=== PATIENT | female | born 1960 | race African-American/Black ===

== ENCOUNTER 2019-05-27 11:00 | Outpatient (RCR) | payer OTHER, SELFPAY ==
--- NOTE | 2019-03-11 09:43 | PTOPEVAL ---
Thank you for referring this patient to [facility]. Please review, sign, date and return this plan of care ENEIDA. Pt seen for therapy evaluation today due to denise knee pain from OA. She requires additional skilled therapy to address impairments and achieve therapy goals. Cont PT 2x/wk x 6 wk to improve impairments noted. I agree with and certify that the following plan of care is medically necessary. Referring Physician Date Attending Provider: Armand Krishnan MD Referring Provider: *PT Outpatient Evaluation Start: 03/11/19 08:55 Freq: Status: Active Protocol: Document 03/11/19 08:55 CARL (Rec: 03/11/19 09:34 CAP [id number]) Therapy Assessment Status Assessment Status Assessment Status Evaluation Outpatient Past Medical History Neurological History Hx Neurological Disorders No Significant History Cardiovascular History Hx Hypertension Yes Respiratory History Hx Respiratory Disorders No Significant History Gastrointestinal History Hx Gastrointestinal Disorders No Significant History Genitourinary History Hx Genitourinary Disorders No Significant History Musculoskeletal History Hx Arthritis Yes: OA knee Endocrine History Hx Endocrine Disorders No Significant History Evaluation Information Problem Diagnosis OA denise knee Onset years Subjective Information Per pt she requires knee Query Text:As Reported By Patient/ replacement, however no Family surgery date is planned. She keeps putting off having surgery. She is now thinking of having the surgery at the end of 2019. She had therapy for her knees pain 1 year ago, but performing her HEP 1x/wk inconsistently. She reports limitations with walking, steps. She reports the pain with occasionally wake her at night. When performing shopping activities she will use the motorized cart. She walks a great deal for her job, but not cardio exercise. She does ride a bike during the summer and a stationary bike 2x/wk. But she stopped due to increased back pain. She wears denise soft knee braces at all times for pain and support. Previous Treatments Previous Treatmen
--- NOTE | 2019-04-10 10:35 | PTOPEVAL ---
Thank you for referring this patient to [facility]. Please review, sign, date and return this plan of care ENEIDA. Pt has received 8 therapy visits to address chronic OA of knees. She demonstrates a decline with denise hip and knee strength, decreased knee motion, decreased walking speed, decreased functional mobility on 5 rep sit<>stand. She performs her HEP 1x/wk. Skilled therapy interventions does not appear to be assisting pt with her pain, strength or function. Min progress towards therapy goals has been noted at the re-evaluation. Cont PT 1x/wk x 4 additional wks to progress and monitor HEP. I agree with and certify that the following plan of care is medically necessary. Referring Physician Date Attending Provider: Armand Krishnan MD Referring Provider: *PT Outpatient Re-Evaluation/Progress Note Start: 03/11/19 08:55 Freq: Status: Active Protocol: Document 04/10/19 08:44 CAP (Rec: 04/10/19 09:25 CAP [id number]) Therapy Assessment Status Assessment Status Assessment Status Re-evaluation Evaluation Information Problem Diagnosis OA denise knee Onset years Subjective Information She reports cont knee pain at Query Text:As Reported By Patient/ rest and with activties. She Family cont to report limitations with walking level surfaces and on steps. The will wake her at night 1-2x/wk. She changed mattresses which she feels has helped. She is using heat at home 1-2x/wk for pain relief. She leans on the grocery cart when grocery shopping. She is performing HEP 1x/wk at home, then in therapy 2x/wk. She reports the knee pain increases with the exercise. She feels like her right hamstring is not as tight, but otherwise no other noted functional changes reported. She has surgery planned for August 2019. Pt is going out of town next week on a cruise with plans to wear mainly flip flops. Pain Assessment Timing of Pain Assessment Timing of Pain Assessment Re-assessment Pain Scale Pain Scale Used Numeric (1 - 10) Self Report Pain Assessment Bilateral Knee(s) Reported Pain Level 4 Pain Description Aching,Sharp Pain Frequency Chronic,Continuous Current Pain Intensity 4 Lowest Pa
--- NOTE | 2019-04-24 09:57 | PCPTNOTE ---
Patient did not show up for scheduled appointment this date. Called patient, however, had to leave a message.
--- NOTE | 2019-04-29 08:28 | PCPTNOTE ---
Patient did not show up for scheduled appointment this date.
--- NOTE | 2019-05-27 14:55 | PTOPEVAL ---
Thank you for referring this patient to [facility]. Please review, sign, date and return this plan of care ENEIDA. Pt has been seen for 11 physical therapy visits to address chronic knee pain. She has achieved maximal potential with skilled therapy at this time. She is indep and performing a HEP. [facility] I agree with and certify that the following plan of care is medically necessary. Referring Physician Date Attending Provider: Armand Krishnan MD Referring Provider: *PT Outpatient Re-Evaluation/Discharge Start: 03/11/19 08:55 Freq: Status: Active Protocol: Document 05/27/19 10:58 CAP (Rec: 05/27/19 11:33 CAP [email or web address]) Outpatient Past Medical History Neurological History Hx Neurological Disorders No Significant History Cardiovascular History Hx Hypertension Yes Respiratory History Hx Respiratory Disorders No Significant History Gastrointestinal History Hx Gastrointestinal Disorders No Significant History Genitourinary History Hx Genitourinary Disorders No Significant History Musculoskeletal History Hx Arthritis Yes: OA knee Endocrine History Hx Endocrine Disorders No Significant History Evaluation Information Problem Diagnosis OA denise knee Onset years Additional Evaluation Detail She has surgery planned for August 2019. Subjective Information She wore her tennis shoes for Query Text:As Reported By Patient/ her cruise, but the increased Family walking caused increased knee pain. She is performing her HEP 1x/ day, but no changes in pain with the exercise with use of medication (tylenol and naprisin). The pain is no longer waking her at night. She is no longer using the heating pad on the knees for pain relief. Pain Assessment Timing of Pain Assessment Timing of Pain Assessment Re-assessment Pain Scale Pain Scale Used Numeric (1 - 10) Self Report Pain Assessment Bilateral Knee(s) Reported Pain Level 1 Pain Description Aching Pain Frequency Chronic Current Pain Intensity 1 Greatest Pain Intensity 4 Pain Aggravating Factors Stair Climbing,Walking,Weight Bearing/Standing Pain Behaviors None Pain Score Pain Score 1: Self Report Lower Extremity Range of Motion Knee Range of Motion Left Knee Flexion Range of Motion - Active 100 Knee Extension Range of Motion - Active -2 Query Text
== END 2019-05-28 10:43 | disposition home or self-care (01) ==
LOC: ANHPT 11:00
PROVIDERS: PCP Nurse Practitioner; Visit Provider Orthopaedic Surgery
DX: M17.0 Bilateral primary osteoarthritis of knee (principal)
CPT/HCPCS: 97110; 97162; 97530

== ENCOUNTER 2019-06-07 15:11 | Outpatient (CLI) | payer OTHER, SELFPAY ==
--- NOTE | ~2019-06-07 | XR_ITS ---
EXAMINATION: XR chest 2V DATE: 06/07/2019 15:24 INDICATION: Right chest pain. TECHNIQUE: Frontal and lateral views of the chest were obtained. COMPARISON: Chest 2 views 08/04/2016 FINDINGS: The chest demonstrates clear lungs without pneumonia, pleural effusion, or pneumothorax. Th e heart size is normal. IMPRESSION: 1. No acute cardiopulmonary disease. Reviewed, dictated and finalized at location A.
== END 2019-06-07 15:12 | disposition home or self-care (01) ==
LOC: ANHIMG 15:15
PROVIDERS: PCP Nurse Practitioner; Visit Provider Internal Medicine
DX: R07.81 Pleurodynia (principal)
CPT/HCPCS: 71046

== ENCOUNTER 2019-08-14 09:47 | Outpatient (CLI) | payer OTHER, SELFPAY ==
--- NOTE | 2019-08-14 10:50 | ECG_ITS ---
Measurements Intervals [place] Rate: 63 P: -28 ME: 150 QRS: 24 QRSD: 81 T: 24 QT: 402 QTc: 414 Interpretive Statements SINUS RHYTHM BASELINE ARTIFACT- I, II, III, AVR, AVL, AVF, V6 NORMAL ECG Electronically Signed On 08-14-2019 12:38:05 CDT by Berto Lake D.O.
[2019-08-14 11:30] LABS: Basophils Absolute Auto 0.1 K/mm3 (0.0-0.1); Basophils Percent Auto 0.6 % (0.2-1.2); Eosinophils Absolute Auto 0.4 K/mm3 (0-0.3); Eosinophils Percent Auto 3.9 % (0-4.4); Hematocrit 41.8 % (37.0-47.0); Hemoglobin 14.4 g/dL (12.0-15.0); Immature Granulocyte Absolute 0.03 K/mm3 (0.00-0.031); Immature Granulocyte Percent A 0.3 % (0-0.5); Lymphocytes Absolute Auto 3.37 K/mm3 (0.9-3.2); Lymphocytes Percent Auto 37.4 % (18.3-44.2); Mean Corpuscular HGB Conc 34.4 g/dl (32-36); Mean Corpuscular Hemoglobin 31.5 pg (26-34); Mean Corpuscular Volume 91.5 fl (80-100); Mean Platelet Volume 8.9 fl (7.4-10.4); Monocytes Absolute Auto 0.8 K/mm3 (0.1-0.6); Monocytes Percent Auto 8.5 % (2.6-8.5); Neutrophils Absolute Auto 4.5 K/mm3 (1.3-6.7); Neutrophils Percent Auto 49.3 % (45.5-73.1); Platelet Count Result 572 k/mm3 (150-375); Red Blood Count 4.57 M/mm3 (4.2-5.4); Red Cell Distribution Width 12.9 % (11.5-14.5)
[2019-08-14 11:42] LABS: Albumin Level 4.7 g/dL (3.5-5.1)
[2019-08-14 11:45] LABS: Blood Urea Nitrogen 12 mg/dL (7-17); Calcium 9.5 mg/dL (8.4-10.2); Carbon Dioxide 31 mmol/L (22-30); Chloride 103 mmol/L (98-107); Estimated Glomerular Filt Rate > 60; Glucose 91 mg/dL (65-105); Potassium 3.9 mmol/L (3.4-5.0); Sodium 140 mmol/L (137-145)
[2019-08-14 11:47] LABS: Hemoglobin A1C 5.1 % (<5.7)
[2019-08-14 12:34] LABS: Urine Cotinine NEGATIVE
== END 2019-08-14 09:48 | disposition home or self-care (01) ==
PROVIDERS: Anesthesiology; PCP Nurse Practitioner; Visit Provider Orthopaedic Surgery
DX: Z01.818 Encounter for other preprocedural examination (principal); I10 Essential (primary) hypertension; M17.0 Bilateral primary osteoarthritis of knee; Z79.899 Other long term (current) drug therapy
CPT/HCPCS: 36415; 80048; 80307; 82040; 83036; 85025; 87081; 93005

== ENCOUNTER 2019-08-31 00:15 | Outpatient (CLI) | payer OTHER, SELFPAY ==
[2019-08-31 16:19] LABS: SARS-CoV-2 RNA PCR Negative
== END 2019-08-31 00:16 | disposition home or self-care (01) ==
LOC: ANHCOVIDDT 00:15
PROVIDERS: PCP Nurse Practitioner; Visit Provider Orthopaedic Surgery
DX: Z01.818 Encounter for other preprocedural examination (principal); Z11.59 Encounter for screening for other viral diseases; M17.0 Bilateral primary osteoarthritis of knee
CPT/HCPCS: 87635; C9803; U0003

== ENCOUNTER 2019-09-03 11:37 | Inpatient (IN) | payer OTHER, SELFPAY ==
[2019-08-14 10:51] VITALS: BP 144/89; PULSE 67; RESP 16; TEMP 37.5; O2SAT 100; BMI 30.3
[2019-09-03] VITALS (12 sets, daily range): BP systolic 100–131; BP diastolic 51–87; PULSE 76–105; RESP 10–27; TEMP 36.1–36.7; O2SAT 93–100
--- NOTE | ~2019-09-03 | CT_ITS ---
EXAMINATION: CTA chest PE protocol EXAM DATE: 09/05/2019 13:56 INDICATION: Shortness of breath and tachycardia. Postoperative fever. TECHNIQUE: Spiral CTA of the chest (pulmonary arteries) was performed with 100 cc Omnipaque 350 intr avenous contrast injection. Images were acquired during the pulmonary arterial phase. Coronal maxi mum intensity projection 3D-reconstructions were created by the technologist on dedicated workstation . Axial, coronal and sagittal reformatted images were reviewed. The dose-length product (DLP) for t his examination was 399.52 mGy-cm. The exposure was tailored according to patient size (auto mA exp osure control), and iterative reconstruction (ASIR) was used as additional dose reduction technique. Correlation is made to chest x-ray from yesterday. Comparison is made to prior examination from 2006. FINDINGS: Suboptimal pulmonary arterial opacification, but no filling defects suspected. Single roun ded right lower lobe 6 mm groundglass density opacity, was present in 2006, benign chronic finding. N o suspicious nodules or acute airspace disease. No thoracic aortic dissection. The lungs are clear. There are no pleural or pericardial effusions. Tracheobronchial tree is patent. There is no me diastinal, hilar or axillary lymphadenopathy. There is no pneumothorax. Heart normal in size. N o evidence of coronary arterial calcification. Upper abdomen is unremarkable. There is thoracic sp ondylosis without osteoblastic or osteolytic lesions identified. IMPRESSION: 1. Unremarkable CT pulmonary examination. Reviewed, dictated and finalized at location B.
--- NOTE | ~2019-09-03 | US_ITS ---
EXAMINATION: US venous doppler LE EXAM DATE: 09/06/2019 14:01 INDICATION: Elevated d-dimer. Knee replacement. TECHNIQUE: Multiple grayscale, color flow and Doppler images of the lower extremity deep venous syste ms bilaterally were obtained and reviewed. There is no prior study for comparison. FINDINGS: Right side: The right common femoral, femoral and profunda veins demonstrate normal color flow, respi ratory variation, augmentation and compressibility. Compressibility, color flow confirmed within the right popliteal, posterior tibial, peroneal, and greater saphenous veins. Left side: The left common femoral, femoral and profunda veins demonstrate normal color flow, respira tory variation, augmentation and compressibility. Compressibility, color flow confirmed within the l eft popliteal, posterior tibial, peroneal, and greater saphenous veins. IMPRESSION: 1. No lower extremity deep venous thrombosis bilaterally. Reviewed, dictated and finalized at location B.
--- NOTE | ~2019-09-03 | XR_ITS ---
EXAMINATION: XR chest 1V portable EXAM DATE: 09/04/2019 23:44 INDICATION: Shortness of breath and fever. TECHNIQUE: Portable AP frontal chest x-ray was obtained. Comparison is made to prior examination from 06/07/2019. FINDINGS: The lungs are clear. There are no pleural effusions. The cardiomediastinal silhouette is within normal limits. There is no pneumothorax suspected. The bones and soft tissues are unremarkab le. There is no significant interval change. IMPRESSION: No acute cardiopulmonary findings. Reviewed, dictated and finalized at location G.
--- NOTE | ~2019-09-03 | XR_ITS ---
EXAMINATION: XR knee LT 2V DATE: 09/03/2019 10:25 INDICATION: Postoperative evaluation following left total knee arthroplasty. TECHNIQUE: Anteroposterior and lateral views of the left knee were obtained. COMPARISON: 03/15/2019 FINDINGS: Left total knee arthroplasty with patellar resurfacing appears well seated and in near anatomic align ment. No fractures identified. Expected postoperative subcutaneous and intra-articular gas. IMPRESSION: 1. Left total knee arthroplasty, negative for postoperative purposes. Reviewed, dictated and finalized at location A.
--- NOTE | 2019-09-03 06:48 | WPDANESPNB ---
Anes - Peripheral Nerve Block Date/Time: 09/03/19 06:48 I have discussed with the patient/family/POA the placement of a peripheral nerve block for post-operative pain management, including associated risks, benefits, complications, and side effects. Alternative methods of post-operative analgesia were detailed. Questions were solicited and answers provided to the satisfaction of the patient/family/POA. Time-Out: A pre-procedural Time-Out was completed immediately before starting the procedure and confirmed: Patient Identification, Site, Procedure, Patient Position and the Availability of Requisite Equipment. Clinical Indications: Acute post-operative pain management requested by the operative surgeon. Nerve Block Insertion Note Anes-nerve block: adductor canal left Patient position: supine Skin prep: chlorhexidine Needle: 22 gauge, stimulating, insulated echogenic needle. Needle length: 80 mm Technique: ultrasound Injectate: bupivacaine 0.5% with epi 5 mcg/ml (30cc) Observations: tolerated well Complications: none Procedure start time:: 717 Procedure end time:: 720
[2019-09-03] MEDS: LACTATED RINGERS 1,000 ML 30 ML IV CONT ×2 (06:55→10:10)
--- NOTE | 2019-09-03 07:08 | WPDHPUPDATE1 ---
History and Physical Update Update Date/Time: 09/03/19 07:08 History and Physical has been reviewed, including an updated exam of the patient. There are NO changes in the patient's condition. Risks, benefits, and alternatives have been discussed and questions answered. Patient agrees to proceed with procedure.
[2019-09-03] MEDS: TRANEXAMIC ACID 1,000MG/ISO100 1,000 MG/100 ML BAG 200 MG IVPB (07:10)
--- NOTE | 2019-09-03 07:21 | P.PNAN_ITS ---
Anes - Initial Pre Proc Eval Procedure: Operation Date: 09/03/19 07:30 Proposed Procedures p Left Total Knee Arthroplasty - Armand Krishnan MD Date/Time: 09/03/19 07:21 Surgeon: Armand Krishnan MD Pre Op Diagnosis: OA Left Knee Patient Data Age: 59 Gender: F Height: 1.7 m Weight: 86.6 kg Last Vital Signs Temp 36.4 C 09/03/19 06:53 Pulse 95 09/03/19 06:53 Resp 18 09/03/19 06:53 BP 131/87 09/03/19 06:53 Pulse Ox 96 09/03/19 06:53 Allergies Allergy/AdvReac Type Severity Reaction Status Date / Time No Known Allergies Allergy Verified 09/03/19 07:12 Home Medications Medication Instructions Recorded Confirmed Type potassium chloride 10 mEq 10 meq PO DAILY #90 tablet 07/23/19 09/03/19 Rx tablet,extended release olmesartan 40 1 tablet PO DAILY #90 tablet 07/24/19 09/03/19 Rx mg-hydrochlorothiazide 25 mg tablet acetaminophen [Tylenol Extra 1,000 mg PO DAILY 08/14/19 08/19/19 History Strength] ibuprofen 400 mg PO BID 08/14/19 08/19/19 History Patient hx anesthesia problems: none Family hx anesthesia problems: none [facility] Social History Social History Smoking status: Never smoker Second hand tobacco smoke exposure: No Alcohol intake: never Gender identity (if verbalized by the patient): Female Anes - Eval Final PreProcedure Day of Procedure 09/03/19 07:21 Patient weight: overweight Heart: regular rate and rhythm Lungs: clear to auscultation and normal air movement Airway: Mallampati scale class II and special considerations (veneers on upper r ow) Neurological: alert and oriented Last oral intake: >/= 8 hours ASA classification: II Emergent: no Anesthetic plan: proceed Anesthesia type and monitoring: general LMA and standard monitoring Informed Consent: The patient's anesthetic plan and its attendant risks and benefits were discussed with the patient/family/POA. Questions were solicited and answers provided to the satisfaction of the patient/family/POA.
[2019-09-03] MEDS: ceFAZolin 2 GM/D5W 50 ML 2 GM/50 ML BAG IVPB (07:26)
--- NOTE | 2019-09-03 07:26 | SUR.PREOP ---
0727 CALLED AND INFORMED OE PT DEPARTURE TO OR.
--- NOTE | 2019-09-03 11:45 | ADMGEN ---
This patient, Nelson Wolfetler, was admitted to 2 Medical Room 259-01. Patient/family oriented to hospital policies and general routines including ID bracelet, bed and alarms, visiting hours, pain management, procedures, bathroom and other care routines, personal items, smoking policy, room service/diet, and visiting hours. Valuables list has been completed. Information on how to activate the Rapid Response Team has been discussed. Patient/Family are encouraged to report perceived risks to care and to ask questions if they do not understand what they are told or what they should do.
[2019-09-03] MEDS: ONDANSETRON INJ 4 MG/2 ML VIAL IV PUSH ×3 (12:20→20:28)
[2019-09-03] MEDS: DIAZEPAM 5 MG TABLET PO (14:15)
[2019-09-03] MEDS: METOCLOPRAMIDE HCL INJ 10 MG/2 ML VIAL IV PUSH (17:07)
[2019-09-03] MEDS: MELOXICAM 7.5 MG TABLET PO (17:10)
[2019-09-03] MEDS: DOCUSATE SODIUM 100 MG CAPSULE PO (17:10)
[2019-09-03] MEDS: ASPIRIN 81 MG ENTERIC TABLET PO (17:10)
[2019-09-04] VITALS (9 sets, daily range): BP systolic 104–124; BP diastolic 50–65; PULSE 101–127; RESP 12–19; TEMP 36.3–39.4; O2SAT 94–99
[2019-09-04] MEDS: METOCLOPRAMIDE HCL INJ 10 MG/2 ML VIAL IV PUSH ×2 (00:12→15:46)
[2019-09-04] MEDS: DIAZEPAM 5 MG TABLET PO ×3 (00:18→20:41)
[2019-09-04] MEDS: ONDANSETRON INJ 4 MG/2 ML VIAL IV PUSH ×4 (04:24→20:36)
[2019-09-04 05:51] LABS: Basophils Percent Auto 0.2 % (0.2-1.2); Eosinophils Percent Auto 0.2 % (0-4.4); Hematocrit 32.9 % (37.0-47.0); Hemoglobin 11.1 g/dL (12.0-15.0); Immature Granulocyte Absolute 0.07 K/mm3 (0.00-0.031); Immature Granulocyte Percent A 0.4 % (0-0.5); Lymphocytes Absolute Auto 4.15 K/mm3 (0.9-3.2); Lymphocytes Percent Auto 24.7 % (18.3-44.2); Mean Corpuscular HGB Conc 33.7 g/dl (32-36); Mean Corpuscular Hemoglobin 31.4 pg (26-34); Mean Corpuscular Volume 92.9 fl (80-100); Mean Platelet Volume 8.7 fl (7.4-10.4); Monocytes Absolute Auto 2.4 K/mm3 (0.1-0.6); Monocytes Percent Auto 14.2 % (2.6-8.5); Neutrophils Absolute Auto 10.1 K/mm3 (1.3-6.7); Neutrophils Percent Auto 60.3 % (45.5-73.1); Platelet Count Result 437 k/mm3 (150-375); Red Blood Count 3.54 M/mm3 (4.2-5.4); Red Cell Distribution Width 12.6 % (11.5-14.5); White Blood Count 16.8 K/mm3 (4.5-10.0)
[2019-09-04 06:06] LABS: Blood Urea Nitrogen 18 mg/dL (7-17); Calcium 8.3 mg/dL (8.4-10.2); Carbon Dioxide 30 mmol/L (22-30); Chloride 104 mmol/L (98-107); Estimated CRCL calculation 68 ml/min; Estimated Glomerular Filt Rate > 60; Glucose 113 mg/dL (65-105); Potassium 3.3 mmol/L (3.4-5.0); Sodium 138 mmol/L (137-145)
[2019-09-04] MEDS: OLMESARTAN MEDOXOMIL 20 MG TABLET 40 MG PO (07:47)
[2019-09-04] MEDS: DOCUSATE SODIUM 100 MG CAPSULE PO ×2 (07:48→18:02)
[2019-09-04] MEDS: ASPIRIN 81 MG ENTERIC TABLET PO ×2 (07:48→18:02)
[2019-09-04] MEDS: MELOXICAM 7.5 MG TABLET PO ×2 (07:48→18:02)
[2019-09-04] MEDS: hydroCHLOROthiazide 25 MG TABLET PO (07:48)
[2019-09-04] MEDS: POTASSIUM CHLORIDE 10 MEQ TABLET.ER PO (07:49)
--- NOTE | 2019-09-04 08:17 | WPDANESPN ---
Anes - Prog Note Post-Op Date/Time: 09/04/19 08:17 Cardiovascular status: normal Respiratory status: normal Airway patency: baseline Mental status: baseline Post-Op hydration status: normal Vital Signs: Last Vital Signs Temp 36.9 C 09/04/19 05:22 Pulse 103 H 09/04/19 05:22 Resp 16 09/04/19 05:22 BP 106/51 L 09/04/19 05:22 Pulse Ox 96 09/04/19 05:22 I/O: Intake & Output 09/03/19 09/04/19 09/04/19 23:59 07:59 15:59 Intake Total 570 750 Output Total 800 Balance 570 -50 Laboratory Tests 09/04/19 05:43 09/04/19 05:42 09/03/19 09/04/19 09/04/19 06:44 05:42 05:43 WBC 16.8 H RBC 3.54 L Hgb 11.1 L D Hct 32.9 L MCV 92.9 MCH 31.4 MCHC 33.7 RDW 12.6 Plt Count 437 H MPV 8.7 Immature Gran % (Auto) 0.4 Neut % (Auto) 60.3 Lymph % (Auto) 24.7 Carver % (Auto) 14.2 H Eos % (Auto) 0.2 Baso % (Auto) 0.2 Lymph # (Auto) 4.15 H Carver # (Auto) 2.4 H Eos # (Auto) 0.0 Baso # (Auto) 0.0 Abs Immat Gran (auto) 0.07 H Absolute Neuts (auto) 10.1 H Absolute Nucleated RBC 0.0 Nucleated RBC % 0.0 Sodium 138 Potassium 3.3 L Chloride 104 Carbon Dioxide 30 BUN 18 H Creatinine 0.90 Estim Creat Clear Calc 68 Estimated GFR > 60 Glucose 113 H Calcium 8.3 L Blood Type O Positive Antibody Screen Negative Post-procedural complaints: none Patient Feedback: Patient satisfied with anesthetic care.
--- NOTE | 2019-09-04 11:18 | PM.PROC ---
Procedure Note - Detailed Date of procedure: 09/04/19 Pre-op diagnosis: OA Left Knee Post-op diagnosis: same Procedure performed: Total knee arthroplasty, left Implants: Media Triathlon size 4 press-fit femur, size 4 Tritanium press fit tibia, 16mm PS X3, polyethylene insert, 35 mm asymmetric Tritanium metal backed patellar component. Anesthesia: GETA and regional (subsartorial nerve block) Surgeon: Armand Krishnan MD Estimated blood loss (mL): 300 Drains: No Complications: None Condition: stable Disposition: PACU Findings: OPERATIVE DETAILS: The patient was given a nerve block preoperatively, and then brought to the operating room. A general anesthetic was administered. The leg was prepped and draped in the usual sterile fashion. The limb was elevated and the tourniquet inflated to 300 mmHg during initial exposure. A longitudinal incision was created along the medial border of the patella and patellar tendon, and standard medial parapatellar approach to the knee was performed. A moderate medial release was taken. The knee was then flexed. The osteophytes were carefully removed. The intramedullary guide was placed in the femoral canal. The distal femoral resection was then taken with the oscillating saw at 8 mm. The collateral ligaments were carefully protected. The tibia was carefully exposed. The jig was applied, and the proximal tibia was resected at 3 degrees according to preoperative plan. The knee was balanced in extension. Appropriate releases were taken where needed. The anterior cruciate ligament and meniscal remnants were removed. The posterior cruciate ligament was resected. The patella was measured. Patellar resection was carried out with the oscillating saw. The lug holes drilled. The femur was sized and rotation assessed using a combination of gap balancing, posterior referencing, and the AP axis. !.5 mm downsizing was needed to balance the flexion gap. She was very loose in extension preoperatively, and after extension balancing, despite a conservative distal femoral resection. Rotation was at 3 degrees, and matched the AP axis. The 4 in 1 cutting block was used to finish the femoral cuts after equal gaps were assured. The lug holes were drilled, and box cut taken. Trialing was performed. Tracking was good. The flexion gap was tight medial, both in flexion and extension. A slight needle release created exellent balance and full range of motion. The osteophytes were carefully removed from the back of the knee. The knee was copiously irrigated periodically throughout the procedure. The meniscal remnants were removed. The spacer block was used to confirm equal flexion and extension gaps. No further releases were needed. The tibia was sized and broached. The bony surfaces were prepared for cementing with pulsatile lavage. The real tibial component was impacted into position followed by press fitting the femoral component. The patella component was press-fit. Patellar tracking was carefully assessed. No additional releases were required. The wound was closed with #1 Vycril suture, #2 Quill suture, 0-Quill suture, and 2-0 Quill suture followed by Steri-Strips. A sterile bulky dressing was applied. Meticulous hemostasis was maintained throughout the procedure. The [employer] device was utilized. There were no complications. The patient was extubated and brought to the recovery room in stable condition after the application of a sterile dressing with Jamil bandage.
[2019-09-04] MEDS: ACETAMINOPHEN 500 MG TABLET 1000 MG PO (22:07)
--- NOTE | 2019-09-04 23:33 | PM.IMCN ---
Assessment and Plan Assessment and plan (1) S/P total knee arthroplasty: Qualifiers: Laterality: left Qualified Code(s): Z96.652 - Presence of left artificial knee joint Code(s): Z96.659 - Presence of unspecified artificial knee joint Status: Acute Assessment and Plan: Continue Ortho recommendations. Pain control per Ortho. (2) Fever: Qualifiers: Fever type: post-procedural Qualified Code(s): R50.82 - Postprocedural fever Code(s): R50.9 - Fever, unspecified Status: Acute Assessment and Plan: Likely secondary to surgery the patient just had today. Fever may also be secondary to atelectasis given that the patient has mild bilateral crackles. I emphasized that the patient should continue to use her ISB. We will check a CXR and urinalysis w/ reflex culture. Check blood cultures. Continue acetaminophen for fever. NS IV Fluids. I do not suspect that the patient has an acute PE given that she has no chest pain is saturating >97% on room air and in no acute respiratory distress. We will consider ruling out pulmonary embolism if the patient develops any worsening symptoms. (3) Hypertension: Qualifiers: Hypertension type: unspecified Qualified Code(s): I10 - Essential (primary) hypertension Code(s): I10 - Essential (primary) hypertension Status: Chronic Assessment and Plan: Continue home Benicar PO. Additional Plan Date of service was 09/04/2019 at 22:30 hrs. HPI Data of Consult Consult date: 09/05/19 Requesting Physician: Armand Krishnan MD Primary Care Provider: Bobo Dempsey APRN Consult Narrative Narrative: Thank you for consulting us to see this 59 year old female with known history of HTN who just underwent a TLKA yesterday and who developed fever this evening. The patient states that her left knee hurts but her pain medicine is helping. She is complaining of mild shortness of breath. She is using her ISB. She denies any chest pain, sore throat, headache, abdominal pain, dysuria, hematuria, nausea, vomiting, diarrhea or focal neurological symptoms. The patient has already received acetaminophen for her fever. No other complaints. Review of Systems Review of Systems: All systems reviewed & are unremarkable except as noted in HPI and below PMFSH Past Medical History Medical History Bilateral primary osteoarthritis of knee Hypertension Thyroid mass of unclear etiology Surgical History Surgical History History of endometrial ablation Family History Family History Mother Hypertension Family history of diabetes mellitus in first degree relative Father Hypertension Other Carcinoma of colon Diabetes mellitus Social History Social History Smoking status: Never smoker Second hand tobacco smoke exposure: No Alcohol intake: never Substance use: never Gender identity (if verbalized by the patient): Female Spiritual care concerns: No Meds Home Medications and Allergies Home Medications Medication Instructions Recorded Confirmed Type potassium chloride 10 mEq 10 meq PO DAILY #90 tablet 07/23/19 09/03/19 Rx tablet,extended release olmesartan 40 1 tablet PO DAILY #90 tablet 07/24/19 09/03/19 Rx mg-hydrochlorothiazide 25 mg tablet acetaminophen [Tylenol Extra 1,000 mg PO DAILY 08/14/19 09/03/19 History Strength] ibuprofen 400 mg PO BID 08/14/19 09/03/19 History Allergies Allergy/AdvReac Type Severity Reaction Status Date / Time No Known Allergies Allergy Verified 09/03/19 07:12 Vital Signs Vital Signs - 24 hr 09/04/19 01:22 09/04/19 05:22 09/04/19 08:00 Temperature 37.2 C 36.9 C Pulse Rate 102 H 103 H 103 H Respiratory Rate 16 16
[2019-09-05] MEDS: SODIUM CHLORIDE 0.9% IV 1,000 ML 125 ML IV CONT ×3 (00:02→16:05)
[2019-09-05 00:10] VITALS: TEMP 36.9
[2019-09-05 00:29] LABS: Add Urine Microscopic? YES; Appearance Urine Clear (Clear); Bacteria Urine Trace /hpf; Bilirubin Urine Negative (Negative); Blood Urine Negative (Negative); Color Urine Yellow (Yellow); Glucose Urine UA Negative (Negative); Ketones Urine Negative (Negative); Leukocyte Esterase Ur Negative LEU/UL (NEGATIVE); Mucus Urine Rare /lpf; Nitrate Urine Negative (Negative); Protein Urine Negative (Negative); RBC Urine 0-2 /hpf (0-2); Squamous Epithelial Cell Urine Moderate /hpf (Few); WBC Urine 0-3 /hpf (0-3)
[2019-09-05] MEDS: METOCLOPRAMIDE HCL INJ 10 MG/2 ML VIAL IV PUSH ×2 (00:37→14:39)
[2019-09-05] MEDS: ACETAMINOPHEN 500 MG TABLET 1000 MG PO ×3 (05:51→16:56)
[2019-09-05 06:00] VITALS: BP 132/64; PULSE 120; RESP 12; TEMP 37.2; O2SAT 100
[2019-09-05] MEDS: ONDANSETRON INJ 4 MG/2 ML VIAL IV PUSH ×3 (06:21→20:59)
[2019-09-05] MEDS: MELOXICAM 7.5 MG TABLET PO ×2 (07:54→16:56)
[2019-09-05] MEDS: OLMESARTAN MEDOXOMIL 20 MG TABLET 40 MG PO (07:54)
[2019-09-05] MEDS: hydroCHLOROthiazide 25 MG TABLET PO (07:54)
[2019-09-05] MEDS: ASPIRIN 81 MG ENTERIC TABLET PO ×2 (07:54→16:56)
[2019-09-05] MEDS: POTASSIUM CHLORIDE 10 MEQ TABLET.ER PO (07:54)
[2019-09-05] MEDS: DOCUSATE SODIUM 100 MG CAPSULE PO ×2 (07:54→16:55)
[2019-09-05] MEDS: DIAZEPAM 5 MG TABLET PO (07:58)
[2019-09-05 08:00] VITALS: PULSE 120; RESP 12; O2SAT 100
[2019-09-05 08:24] LABS: Basophils Absolute Auto 0.1 K/mm3 (0.0-0.1); Basophils Percent Auto 0.4 % (0.2-1.2); Eosinophils Absolute Auto 0.3 K/mm3 (0-0.3); Eosinophils Percent Auto 2.1 % (0-4.4); Hematocrit 35.1 % (37.0-47.0); Hemoglobin 11.8 g/dL (12.0-15.0); Immature Granulocyte Absolute 0.08 K/mm3 (0.00-0.031); Immature Granulocyte Percent A 0.5 % (0-0.5); Lymphocytes Absolute Auto 3.34 K/mm3 (0.9-3.2); Mean Corpuscular HGB Conc 33.6 g/dl (32-36); Mean Corpuscular Hemoglobin 31.6 pg (26-34); Mean Corpuscular Volume 94.1 fl (80-100); Mean Platelet Volume 9.4 fl (7.4-10.4); Monocytes Absolute Auto 2.1 K/mm3 (0.1-0.6); Platelet Count Result 456 k/mm3 (150-375); Red Blood Count 3.73 M/mm3 (4.2-5.4); Red Cell Distribution Width 12.7 % (11.5-14.5); White Blood Count 15.9 K/mm3 (4.5-10.0)
[2019-09-05 08:37] LABS: Alanine Aminotransferase 18 U/L (4-35); Albumin Level 3.9 g/dL (3.5-5.1); Alkaline Phosphatase 63 U/L (38-126); Aspartate Amino Transferase 37 U/L (14-36); Bilirubin,Total 1.9 mg/dL (0.2-1.3); Blood Urea Nitrogen 15 mg/dL (7-17); Calcium 8.4 mg/dL (8.4-10.2); Carbon Dioxide 29 mmol/L (22-30); Chloride 101 mmol/L (98-107); Estimated CRCL calculation 62 ml/min; Estimated Glomerular Filt Rate > 60; Glucose 112 mg/dL (65-105); Potassium 3.4 mmol/L (3.4-5.0); Sodium 137 mmol/L (137-145)
--- NOTE | 2019-09-05 10:03 | PM.IMPN ---
Progress Note: A&P Assessment and Plan (1) S/P total knee arthroplasty: Qualifiers: Laterality: left Qualified Code(s): Z96.652 - Presence of left artificial knee joint Code(s): Z96.659 - Presence of unspecified artificial knee joint Status: Acute Assessment and Plan: Patient underwent left total knee arthroplasty on 09/04/[address] Krishnan. Her pain is well controlled at this time. Postoperative management and pain control per Dr. Krishnan. (2) Fever: Qualifiers: Fever type: post-procedural Qualified Code(s): R50.82 - Postprocedural fever Code(s): R50.9 - Fever, unspecified Status: Acute Assessment and Plan: Patient developed fever postoperatively with T-max 103.0. CXR demonstrated no acute findings and urinalysis was clear. She has been afebrile today. She does have leukocytosis which is improving. Continue IV fluids and acetaminophen as needed for fever May be secondary to atelectasis. Continue incentive spirometer. Preliminary blood cultures show no growth today. Continue to monitor. Order Chest CTA. PE is a less likely etiology for her fever, however she cannot be ruled out by PERC criteria and has a PE Wells score of 6. D-dimer is elevated. She is maintaining adequate oxygenation and is not in acute respiratory distress, however she does endorse shortness of breath, she is postoperative, and has tachycardia. (3) Hypertension: Qualifiers: Hypertension type: unspecified Qualified Code(s): I10 - Essential (primary) hypertension Code(s): I10 - Essential (primary) hypertension Status: Chronic Assessment and Plan: Blood pressures were evaluated and acceptable in low-normal range. Blood pressure this morning was stable at 132/64. Continue olmesartan and HCTZ Continue to monitor blood pressures closely (4) Tachycardia: Code(s): R00.0 - Tachycardia, unspecified Status: Acute Assessment and Plan: Ranging from 101-127 following procedure. This may be secondary to fever or pain. Check EKG Check TSH Continue IV fluids PE is less likely as noted above, however will proceed with chest CTA given clinical picture and elevated D-dimer. Subjective Date/time seen: 09/05/19 10:03 Interval history: Date of service: 09/05/2019 She reports she is doing well today. Her pain has remained stable postoperatively. This morning she states that her pain was 6/10. She has just returned from working with physical therapy and states her pain is about 7/10. She did well walking and with stairs. She complains of left anterior patella pain and pain in her left thigh. She reports she is feeling much better than yesterday and her fevers have improved. She has mild dizziness and weakness but believes this also has improved from yesterday. She reports some mild shortness of breath today but denies cough, orthopnea, palpitations, or chest pain. She denies headache, fever, or chills. She did admit to some nausea but denied vomiting. She has no abdominal pain or cramping. She has not had a bowel movement since surgery. She is eating well. She denies any urinary symptoms. Review of Systems Review of Systems: Narrative: A 12 point review of systems was reviewed with pertinent positives and negatives as per HPI. Exam Narrative: Exam Narrative: Ms. Monsalve is examined alone today. She is a well-nourished, well-appearing 59-year-old female who is lying supine in bed. She appears comfortable and is in no acute respiratory distress. HR 120, BP 132/64, RR 12, T 98.9?, 100% on room air Neuro: awake, alert and oriented x4, speech clear, no focal neuro deficits noted HEENMT: normocephalic, atraumatic, EOMI, PERRL, sclerae anicteric, moist oral mucosa, tongue midline Neck: supple, no lymphadenopathy Respiratory: clear to auscultation bilaterally, normal respiratory effort without accessory mus
--- NOTE | 2019-09-05 10:10 | ECG_ITS ---
Measurements Intervals [place] Rate: 102 P: 49 ND: 188 QRS: 56 QRSD: 75 T: 21 QT: 331 QTc: 431 Interpretive Statements SINUS TACHYCARDIA ABNORMAL ECG Electronically Signed On 09-05-2019 11:06:37 CDT by [place] D.O.
[2019-09-05 11:11] LABS: D Dimer 1.86 ug/mL (<0.48)
[2019-09-05 11:42] LABS: Thyroid Stimulating Hormone 0.213 uIU/mL (0.465-4.680)
[2019-09-05 12:00] VITALS: TEMP 37.3
[2019-09-05 14:00] VITALS: BP 115/49; PULSE 113; RESP 16; TEMP 36.9; O2SAT 96
--- NOTE | 2019-09-05 16:36 | PM.PNORT ---
Progress Note: A&P Assessment and Plan (1) S/P total knee arthroplasty: Qualifiers: Laterality: left Qualified Code(s): Z96.652 - Presence of left artificial knee joint Code(s): Z96.659 - Presence of unspecified artificial knee joint Status: Acute Assessment and Plan: Spiked a fever and demonstrated tachycardia. No signs of infection at the knee. Moderate pain. Will observe today and await results of the workup. Hospitalist assistance appreciated. Subjective Subjective Date/Time Seen: 09/05/19 16:36 Interval history: moderate pain of 6. Tolerating pain medication better. Nausea under control. Spiked a fever last night. Workup in progress. Appreciate hospitalist assistance. Exam Narrative: Exam Narrative: Alert oriented x3. Appears uncomfortable. Progressing with physical therapy. Using the walker. Wound is healing. Significant swelling without evidence of hemarthrosis. No warmth or drainage. Calf nontender. Wiggles toes. Light touch sensation intact. Objective Data Vital Signs Vital Signs: Vital Signs - 24 hr 09/04/19 22:00 09/04/19 22:07 09/04/19 23:00 Temperature 39.4 C H 39.4 C H 37.9 C H Pulse Rate 127 H Respiratory Rate 12 Blood Pressure 124/59 L Pulse Oximetry 98 09/04/19 23:39 09/05/19 00:10 09/05/19 06:00 Temperature 37.9 C H 36.9 C 37.2 C Pulse Rate 120 H Respiratory Rate 12 Blood Pressure 132/64 Pulse Oximetry 100 09/05/19 08:00 09/05/19 12:00 09/05/19 14:00 Temperature 37.3 C 36.9 C Pulse Rate 120 H 113 H Respiratory Rate 12 16 Blood Pressure 115/49 L Pulse Oximetry 100 96 Intake/Output Intake/Output: Intake & Output 09/02/19 09/03/19 09/04/19 09/05/19 23:59 23:59 23:59 23:59 Intake Total 1020 2270 2680 Output Total 1550 1100 Balance 0946 158 6894 Meds/Results Medications: Active Medications Generic Name Dose Route Start Last Admin Trade Name Freq PRN Reason Stop Dose Admin Acetaminophen 1,000 mg 09/05/19 06:00 09/05/19 12:10 Tylenol Tablet PO 1,000 mg Q6HR LISA Administration Aspirin 81 mg 09/03/19 17:00 09/05/19 07:54 Aspirin Ec PO 81 mg BID LISA Administration Diazepam 5 mg 09/03/19 11:37 09/05/19 07:58 Valium Po PO 5 mg Q8H PRN Administration Spasms Docusate Sodium 100 mg 09/03/19 17:00 09/05/19 07:54 Colace Capsule PO 100 mg BID LISA Administration Hydrochlorothiazide 25 mg 09/04/19 09:00 09/05/19 07:54 Hydrochlorothiazide PO 25 mg QAM LISA Administration Sodium Chloride 1,000 mls @ 125 mls/hr 09/04/19 23:35 09/05/19 16:05 Normal Saline Iv IV CONT 125 mls/hr .Q8H LISA Administration Meloxicam 7.5 mg 09/03/19 17:00 09/05/19 07:54 Mobic PO 7.5 mg BID LISA Administration Meperidine HCl 100 mg 09/03/19 11:53 Demerol IM Q3H PRN Pain10, breakthough only Metoclopramide HCl 10 mg 09/03/19 16:45 09/05/19 14:39 Reglan IV PUSH 10 mg Q6HR PRN Administration Nausea Naloxone HCl 0.1 mg 09/03/19 11:37 Narcan IV PUSH Q2M PRN Opiate Reversal Olmesartan 40 mg 09/04/19 09:00 09/05/19 07:54 Benicar PO 40 mg QAM LISA Administration Ondansetron HCl 4 mg 09/03/19 11:37 09/05/19 10:41 Zofran Inj IV PUSH 4 mg Q4H PRN Administration Nausea And Vomiting Oxycodone HCl 5 mg 09/03/19 11:37 09/03/19 15:56 Roxicodone Ir Tablet PO 5 mg Q4H PRN Administration Pain Rated 4-6 Oxycodone HCl 10 mg 09/03/19 11:37 09/05/19 14:38 Roxicodone Ir Tablet PO 10 mg Q4H PRN Administration Pain Rated 7-10 Potassium Chloride 10 meq 09/04/19 09:00 09/05/19 07:54 Kcl Tablet PO 10 meq DAILY LISA Administration Radiology Results: ITS Impressions Knee X-Ray 09/03/19 10:26 IMPRESSION: 1. Left total knee arthroplasty, negative for postoperative purposes. Chest X-Ray 09/04/19 23:52 IMPRESSION: No acute cardiopulmonary
[2019-09-05 22:00] VITALS: BP 113/56; PULSE 109; RESP 18; TEMP 36.7; O2SAT 97
[2019-09-06] MEDS: METOCLOPRAMIDE HCL INJ 10 MG/2 ML VIAL IV PUSH ×2 (00:57→08:45)
[2019-09-06] MEDS: ACETAMINOPHEN 500 MG TABLET 1000 MG PO ×4 (00:58→17:28)
[2019-09-06] MEDS: SODIUM CHLORIDE 0.9% IV 1,000 ML 125 ML IV CONT ×2 (03:34→11:56)
[2019-09-06 06:00] VITALS: BP 126/75; PULSE 112; RESP 16; TEMP 36.9; O2SAT 96
[2019-09-06] MEDS: ONDANSETRON INJ 4 MG/2 ML VIAL IV PUSH ×2 (06:03→17:20)
[2019-09-06 06:13] LABS: Alanine Aminotransferase 22 U/L (4-35); Albumin Level 3.2 g/dL (3.5-5.1); Alkaline Phosphatase 76 U/L (38-126); Aspartate Amino Transferase 46 U/L (14-36); Bilirubin,Total 1.3 mg/dL (0.2-1.3); Blood Urea Nitrogen 13 mg/dL (7-17); Calcium 8.3 mg/dL (8.4-10.2); Carbon Dioxide 31 mmol/L (22-30); Chloride 104 mmol/L (98-107); Estimated CRCL calculation 62 ml/min; Estimated Glomerular Filt Rate > 60; Glucose 112 mg/dL (65-105); Potassium 3.5 mmol/L (3.4-5.0); Sodium 137 mmol/L (137-145)
[2019-09-06] MEDS: ASPIRIN 81 MG ENTERIC TABLET PO (11:02)
[2019-09-06] MEDS: hydroCHLOROthiazide 25 MG TABLET PO (11:02)
[2019-09-06] MEDS: OLMESARTAN MEDOXOMIL 20 MG TABLET 40 MG PO (11:03)
[2019-09-06] MEDS: MELOXICAM 7.5 MG TABLET PO (11:03)
[2019-09-06] MEDS: POTASSIUM CHLORIDE 10 MEQ TABLET.ER PO (11:03)
[2019-09-06] MEDS: DOCUSATE SODIUM 100 MG CAPSULE PO (11:07)
--- NOTE | 2019-09-06 13:36 | PM.IMPN ---
Progress Note: A&P Assessment and Plan (1) S/P total knee arthroplasty: Qualifiers: Laterality: left Qualified Code(s): Z96.652 - Presence of left artificial knee joint Code(s): Z96.659 - Presence of unspecified artificial knee joint Status: Acute Assessment and Plan: Patient underwent left total knee arthroplasty on 09/04/[address] Krishnan. Her pain is well controlled at this time. Her left medial knee and thigh is mildly erythematous and warm to palpation. Postoperative management and pain control per Dr. Krishnan. (2) Fever: Qualifiers: Fever type: post-procedural Qualified Code(s): R50.82 - Postprocedural fever Code(s): R50.9 - Fever, unspecified Status: Acute Assessment and Plan: Patient developed fever postoperatively with T-max 103.0. CXR demonstrated no acute findings and urinalysis was clear. She has been afebrile >24 hours. Continue IV fluids and acetaminophen as needed for fever May be secondary to atelectasis. Continue incentive spirometer. Preliminary blood cultures show NGTD. Continue to monitor. D-dimer is elevated. Venous Doppler is negative for DVT. Chest CTA was negative. (3) Hypertension: Qualifiers: Hypertension type: unspecified Qualified Code(s): I10 - Essential (primary) hypertension Code(s): I10 - Essential (primary) hypertension Status: Chronic Assessment and Plan: Blood pressures were evaluated and stable. Blood pressure this morning was stable at 126/75. Continue olmesartan and HCTZ Continue to monitor blood pressures closely (4) Tachycardia: Code(s): R00.0 - Tachycardia, unspecified Status: Acute Assessment and Plan: HR has been mildly elevated ranging from 102-120. HR is 112 today. EKG demonstrates sinus tachycardia. I suspect this is secondary to pain. TSH is mildly low. Will check reflex T4. Continue gentle IV fluids Subjective Date/time seen: 09/06/19 13:36 Interval history: Date of service: 09/06/2019 She is feeling nauseous today. She believes this may be secondary to her pain medication. She reports her pain is well controlled at this time and she has been ambulating with therapy and doing well. She was feeling warm at the time of my visit and had a cool rag on her head. She has not had any additional fevers and she denies chills. She denies shortness of breath or chest pain. She denies dysuria or hematuria. She has not had a bowel movement since her surgery. She denies abdominal pain, bloating, or cramping. She is passing flatus. Review of Systems Review of Systems: Narrative: A 12 point review of systems was reviewed with pertinent positives and negatives as per HPI. Exam Narrative: Exam Narrative: Ms. Monsalve is examined alone today. She is a well-nourished, well-appearing 59-year-old female who is lying supine in bed. She appears comfortable and is in no acute respiratory distress. HR 112, BP 126/75, R 16, T 98.4?, 96% on room air Neuro: awake, alert and oriented x4, speech clear, no focal neuro deficits noted HEENMT: normocephalic, atraumatic, EOMI, PERRL, sclerae anicteric, moist oral mucosa, tongue midline Neck: supple, no lymphadenopathy Respiratory: clear to auscultation bilaterally, normal respiratory effort without accessory muscle use Cardio: Regular rate, regular rhythm, normal S1 and S2 Abdomen: normal to inspection, nondistended, midline surgical scar, normoactive bowel sounds, soft, nontender Extremities: Wearing Eagle hose, left knee with bandage that is clean, dry and intact, left medial thigh is mildly erythematous and warm, mildly tender to palpation, BLE without pedal edema, dorsal pedis pulses palpable bilaterally Skin: no rashes or lesions, warm and dry Psych: Pleasant and cooperative, normal mood and affect, judgment and insight intact Objective Data Vital Signs Vital Signs: Vital Sig
--- NOTE | 2019-09-06 15:38 | PCPTNOTE ---
The patient treatment was not able to be completed this afternoon. Patient was out of room for test this afternoon on first PT attempt. Pt awaiting blood draw, test results, and follow up with Dr. Krishnan when PT attempted treatment for second time. Will plan to continue treatment per plan of care.
[2019-09-06 16:08] LABS: Basophils Absolute Auto 0.1 K/mm3 (0.0-0.1); Basophils Percent Auto 0.4 % (0.2-1.2); Eosinophils Absolute Auto 0.5 K/mm3 (0-0.3); Eosinophils Percent Auto 2.8 % (0-4.4); Hematocrit 32.8 % (37.0-47.0); Hemoglobin 11.1 g/dL (12.0-15.0); Immature Granulocyte Absolute 0.12 K/mm3 (0.00-0.031); Immature Granulocyte Percent A 0.7 % (0-0.5); Lymphocytes Absolute Auto 4.91 K/mm3 (0.9-3.2); Lymphocytes Percent Auto 27.4 % (18.3-44.2); Mean Corpuscular HGB Conc 33.8 g/dl (32-36); Mean Corpuscular Hemoglobin 31.9 pg (26-34); Mean Corpuscular Volume 94.3 fl (80-100); Mean Platelet Volume 9.4 fl (7.4-10.4); Monocytes Absolute Auto 1.9 K/mm3 (0.1-0.6); Monocytes Percent Auto 10.8 % (2.6-8.5); Neutrophils Absolute Auto 10.4 K/mm3 (1.3-6.7); Neutrophils Percent Auto 57.9 % (45.5-73.1); Platelet Count Result 449 k/mm3 (150-375); Red Blood Count 3.48 M/mm3 (4.2-5.4); Red Cell Distribution Width 12.6 % (11.5-14.5); White Blood Count 17.9 K/mm3 (4.5-10.0)
--- NOTE | 2019-09-06 16:48 | PM.PNORT ---
Progress Note: A&P Assessment and Plan (1) S/P total knee arthroplasty: Qualifiers: Laterality: left Qualified Code(s): Z96.652 - Presence of left artificial knee joint Code(s): Z96.659 - Presence of unspecified artificial knee joint Status: Acute Assessment and Plan: Difficult early postoperative course. No evidence of the VTE or DVT at this time. Afebrile. She may be discharged home. Pain control difficult due to nausea. Will use Percocet sparingly. She will also go home with meloxicam 7.5 twice daily. Subjective Subjective Date/Time Seen: 09/06/19 16:48 Interval history: Pain control improved. Still has some nausea. Medical workup thus far normal. No evidence of DVT or VTE. Cultures negative. Exam Narrative: Exam Narrative: Wound healing well. No drainage. Moderate warmth. Scant erythema. No ecchymosis. Mobilizing well with physical therapy. No calf swelling or tenderness. Neurologic status intact. Objective Data Vital Signs Vital Signs: Vital Signs - 24 hr 09/05/19 22:00 09/06/19 06:00 Temperature 36.7 C 36.9 C Pulse Rate 109 H 112 H Respiratory Rate 18 16 Blood Pressure 113/56 L 126/75 Pulse Oximetry 97 96 Intake/Output Intake/Output: Intake & Output 09/03/19 09/04/19 09/05/19 09/06/19 23:59 23:59 23:59 23:59 Intake Total 1020 2270 3220 2370 Output Total 1550 2100 1250 Balance 1380 844 2884 1120 Meds/Results Medications: Active Medications Generic Name Dose Route Start Last Admin Trade Name Freq PRN Reason Stop Dose Admin Acetaminophen 1,000 mg 09/05/19 06:00 09/06/19 11:55 Tylenol Tablet PO 1,000 mg Q6HR LISA Administration Aspirin 81 mg 09/03/19 17:00 09/06/19 11:02 Aspirin Ec PO 81 mg BID LISA Administration Diazepam 5 mg 09/03/19 11:37 09/05/19 07:58 Valium Po PO 5 mg Q8H PRN Administration Spasms Docusate Sodium 100 mg 09/03/19 17:00 09/06/19 11:07 Colace Capsule PO 100 mg BID LISA Administration Hydrochlorothiazide 25 mg 09/04/19 09:00 09/06/19 11:02 Hydrochlorothiazide PO 25 mg QAM LISA Administration Sodium Chloride 1,000 mls @ 75 mls/hr 09/04/19 23:35 09/06/19 11:56 Normal Saline Iv IV CONT 125 mls/hr .[id number] LISA Administration Meloxicam 7.5 mg 09/03/19 17:00 09/06/19 11:03 Mobic PO 7.5 mg BID LISA Administration Meperidine HCl 100 mg 09/03/19 11:53 Demerol IM Q3H PRN Pain10, breakthough only Metoclopramide HCl 10 mg 09/03/19 16:45 09/06/19 08:45 Reglan IV PUSH 10 mg Q6HR PRN Administration Nausea Naloxone HCl 0.1 mg 09/03/19 11:37 Narcan IV PUSH Q2M PRN Opiate Reversal Olmesartan 40 mg 09/04/19 09:00 09/06/19 11:03 Benicar PO 40 mg QAM LISA Administration Ondansetron HCl 4 mg 09/03/19 11:37 09/06/19 06:03 Zofran Inj IV PUSH 4 mg Q4H PRN Administration Nausea And Vomiting Oxycodone HCl 5 mg 09/03/19 11:37 09/03/19 15:56 Roxicodone Ir Tablet PO 5 mg Q4H PRN Administration Pain Rated 4-6 Oxycodone HCl 10 mg 09/03/19 11:37 09/06/19 06:04 Roxicodone Ir Tablet PO 10 mg Q4H PRN Administration Pain Rated 7-10 Potassium Chloride 10 meq 09/04/19 09:00 09/06/19 11:03 Kcl Tablet PO 10 meq DAILY LISA Administration Radiology Results: ITS Impressions Knee X-Ray 09/03/19 10:26 IMPRESSION: 1. Left total knee arthroplasty, negative for postoperative purposes. Chest X-Ray 09/04/19 23:52 IMPRESSION: No acute cardiopulmonary findings. Chest CTA 09/05/19 14:48 IMPRESSION: 1. Unremarkable CT pulmonary examination. Venous Doppler Study 09/06/19 14:02 IMPRESSION: 1. No lower extremity deep venous thrombosis bilaterally. Labs Labs: Laboratory Results - last 24 hr 09/06/19 09/06/19 09/06/19 05:22 15:12 15:12 WBC 17.9 H RBC 3.48 L Hgb 11.1 L Hct 32.8 L MCV 94.3 MCH
--- NOTE | 2019-09-06 16:57 | PM.DS ---
DS: Admitting Diagnosis Admitting Diagnosis Admitting Diagnosis: Bilateral primary osteoarthritis of knee DS: Discharge Diagnosis Discharge Diagnosis (1) S/P total knee arthroplasty: Qualifiers: Laterality: left Qualified Code(s): Z96.652 - Presence of left artificial knee joint Code(s): Z96.659 - Presence of unspecified artificial knee joint Status: Acute DS: Summary Hospital Course Reason for hospitalization: Total knee arthroplasty. Hospital Course: Complained of nausea. Spiked a temp on postoperative day 1. Workup negative. Concern for VTE. Ultrasound and CT chest normal. Progressed appropriately with therapy. Time Spent with Patient Time attestation: Total time spent providing and/or coordinating discharge services: Exam Const: General: no acute distress Resp: Effort & Inspection: normal respiratory effort Skin: Other: Wound healing well. Moderate warmth and erythema within normal limits. Mepilex dressing intact. No hematoma or drainage. Neuro: Motor exam (neuro): 5/5 motor strength present throughout Sensory Exam: normal sensation Psych: Mental Status: mental status grossly normal Speech and movement: Normal speech and movement present DS: Data Data Completed and Pending Labs on day of discharge: Labs from last 24 hours 09/06/19 09/06/19 09/06/19 15:12 15:12 05:22 WBC 17.9 H RBC 3.48 L Hgb 11.1 L Hct 32.8 L MCV 94.3 MCH 31.9 MCHC 33.8 RDW 12.6 Plt Count 449 H MPV 9.4 Immature Gran % (Auto) 0.7 H Neut % (Auto) 57.9 Lymph % (Auto) 27.4 Cole % (Auto) 10.8 H Eos % (Auto) 2.8 Baso % (Auto) 0.4 Lymph # (Auto) 4.91 H Cole # (Auto) 1.9 H Eos # (Auto) 0.5 H Baso # (Auto) 0.1 Abs Immat Gran (auto) 0.12 H Absolute Neuts (auto) 10.4 H Absolute Nucleated RBC 0.0 Nucleated RBC % 0.0 Sodium 137 Potassium 3.5 Chloride 104 Carbon Dioxide 31 H BUN 13 Creatinine 1.00 Estim Creat Clear Calc 62 Estimated GFR > 60 Glucose 112 H Calcium 8.3 L Total Bilirubin 1.3 AST 46 H ALT 22 Alkaline Phosphatase 76 C-Reactive Protein 25.0 H Total Protein 6.0 L Albumin 3.2 L Preliminary micro results at discharge 09/05/19 00:06 Blood Culture - Preliminary Blood 09/05/19 00:05 Blood Culture - Preliminary Blood Discharge Plan Discharge Attending physician on discharge: Armand Krishnan Consulting providers: Lilly Kenney ; Bobo Rousseau Discharging Clinician: Armand Krishnan Patient Disposition: Home, Self-Care Activity: may shower Diet: as tolerated Wound Care Instructions: follow printed instructions Discharge Instructions: Hospitalist Discharge Recommendations: You should be seen by your primary care provider in 1-2 weeks to discuss your hospital stay. You can take Tylenol as needed for fever. Call your doctor or seek medical care if you develop shortness of breath, fever, chills, nausea, vomiting, heart racing, dizziness, lightheadedness, or increased weakness. Call 911 or proceed to the emergency department if you have chest pain, loss of consciousness, or any other life threatening symptoms. Patient Instructions: Antibiotic Form, Joint Replacement Surgery (DC), Knee Replacement (DC) Stand Alone Forms: General Discharge Information Follow-up/Referrals: Armand Krishnan MD [Physician] - Keep Reg. Scheduled Appt. Discharge Medications: New aspirin [Enteric Coated Aspirin] 81 mg tablet,delayed release (DR/EC) 81 mg PO DAILY Qty: 28 RF: 0 oxycodone-acetaminophen 5-325 mg tablet 1 - 2 tablet PO Q4-6H MDD 6 tablets PRN (Reason: pain) Qty: 30 RF: 0 meloxicam 7.5 mg tablet 7.5 mg PO BID Qty: 60 RF: 0 Continued acetaminophen [Tylenol Extra Strength] 500 mg Tablet 1,000 mg PO DAILY RF: 0 potassium chloride [Klor-Con 10] 10 mEq tablet extended release 10 meq PO DAILY Q
== END 2019-09-06 18:04 | disposition home or self-care (01) | DRG 470 ==
LOC: ANH2MED 12:54
PROVIDERS: Family Medicine; Physician Assistant; Admitting Provider Orthopaedic Surgery; PCP Nurse Practitioner; Visit Provider Orthopaedic Surgery
PROC: (CPT 27447; principal; 2019-09-03 07:30)
DX: M17.0 Bilateral primary osteoarthritis of knee (principal); J95.89 Other postprocedural complications and disorders of respiratory system, not elsewhere classified; J98.11 Atelectasis; I10 Essential (primary) hypertension
CPT/HCPCS: 36415; 71045; 71275; 73560; 80048; 80053; 81001; 84443; 85025; 85380; 86140; 86850; 86900; 86901; 87040; 93005; 93970; 97110; 97116; 97161; 97165; 97530; 97535; A9270; C1713; C1776; J0131; J0171; J0330; J0690; J1100; J1170; J1200; J1885; J2250; J2270; J2370; J2405; J2704; J2765; J2795; J3010; J7030; J7120; Q9967

== ENCOUNTER 2019-10-17 13:35 | Outpatient (CLI) | payer OTHER, SELFPAY ==
--- NOTE | ~2019-10-17 | XR_ITS ---
XR knee LT 3V DATE: 10/17/2019 14:00 INDICATION: 4 weeks post knee joint replacement. Stiffness. TECHNIQUE: AP, lateral, sunrise views COMPARISON: None FINDINGS: Status post left total knee joint replacement with patellar resurfacing. Normal alignment o f the prosthetic components. No fracture or dislocation, periosteal reaction or bone destruction or u nusual foreign body is noted. Moderate suprapatellar knee joint effusion is suggested. IMPRESSION: Status post left knee joint replacement Probable joint effusion Reviewed, dictated and finalized at location B.
== END 2019-10-17 13:36 | disposition home or self-care (01) ==
LOC: ANHIMG 13:38
PROVIDERS: PCP Nurse Practitioner; Visit Provider Orthopaedic Surgery
DX: Z47.1 Aftercare following joint replacement surgery (principal)
CPT/HCPCS: 73562

== ENCOUNTER 2019-12-09 15:45 | Outpatient (RCR) | payer OTHER, SELFPAY ==
--- NOTE | 2019-09-18 16:08 | PTOPEVAL ---
Thank you for referring Nelson Monsalve to [facility]. Please review, sign, date and return this plan of care ENEIDA. Pt seen for initial evaluation due to limitations related to left TKR. She demonstrates decreased knee range, LE weakness, increased pain and decreased performance with functional mobility. She requires additional skilled PT 2-3x/wk x 10 wk. I agree with and certify that the following plan of care is medically necessary. Referring Physician Date Attending Provider: Armand Krishnan MD *PT Outpatient Evaluation Start: 09/18/19 14:29 Freq: Status: Active Protocol: Document 09/18/19 14:30 CAP (Rec: 09/18/19 15:04 CAP [id number]) Therapy Assessment Status Assessment Status Assessment Status Evaluation Outpatient Past Medical History Past Medical History Source of Past Medical History Patient,Recalled from Previous Visit, Confirmed with Patient /Family Neurological History Hx Neurological Disorders No Significant History Cardiovascular History Hx Hypertension Yes: TAKES MED Respiratory History Hx Respiratory Disorders No Significant History Gastrointestinal History Hx Other Gastrointestinal Disorders Yes: NORMAL COLONOSCOPY Genitourinary History Hx Genitourinary Disorders No Significant History Musculoskeletal History Hx Arthritis Yes: OA BILAT KNEES Hx Joint Replacement Yes: left TKR 09/03/19 Hematological History Hx Other Hematological Disorders Yes: SPLEENECTOMY AGE 7, SPHEROCYTOSIS Endocrine History Hx Endocrine Disorders No Significant History HEENT History Hx Other HEENT Disorders Yes: NECK CYST. HX LASIK. Integumentary History Hx Skin Disorders No Significant History Reproductive History Hx Other Reproductive Disorders Yes: UTERINE ABLATION HX AND RT BREAST BX Psychosocial History Hx Psychiatric Disorders No Significant History Pain History Has Past Pain Affected Your Daily Life Yes: KNEES Anesthesia History Hx Other Anesthesia Reactions Yes: INTUBATED AFTER COLONOSCPY Evaluation Information Problem Diagnosis left TKR Onset 09/03/19 Additional Evaluation Detail Pt is s/p TKR on 09/03/19 with hospital stay from 09/02- Subjective Information She reports she has not been Query Text:As Reported By Patient/ performing many activities Family since her surgery. She has been performing very limited walking and standing at home. Today was the first day to perform the steps. She has
--- NOTE | 2019-10-16 10:14 | PTOPEVAL ---
Thank you for referring Nelson Monsalve to [facility]. Please review, sign, date and return this plan of care ENEIDA. Pt has received 13 therapy visits to address impairments related to TKR. She demonstrates progress with LE range, strength and functional mobility. She requires additional skilled therapy to achieve remaining goals and achieve maximal functional level. Cont PT 2x/wk x 4 wk. I agree with and certify that the following plan of care is medically necessary. Referring Physician Date Attending Provider: Armand Krishnan MD Physical Therapy update *PT Outpatient Evaluation Start: 09/18/19 14:29 Freq: Status: Active Protocol: Document 10/16/19 08:02 CARL (Rec: 10/16/19 08:42 CAP [id number]) Therapy Assessment Status Assessment Status Assessment Status Re-evaluation Evaluation Information Problem Diagnosis left TKR Onset 09/03/19 Additional Evaluation Detail Pt is s/p TKR on 09/03/19 with hospital stay from 09/02- Subjective Information She continues to take pain Query Text:As Reported By Patient/ medication every 4 hours Family however reports highest pain of 2/10. She is performing the bike 3-4 x/day for 10 min each, negotiating steps and walking with cane. She does not feel like she is walking the steps properly. She reports stiffness is the biggest issue. She continues to have pain and difficulty with longer walking in the community. Unable to tolerate walking [employer] or [employer]. Pain Assessment Timing of Pain Assessment Timing of Pain Assessment Re-assessment Pain Scale Pain Scale Used Numeric (1 - 10) Self Report Pain Assessment Left Knee(s) Reported Pain Level 0 Pain Frequency Intermittent Greatest Pain Intensity 2 Pain Aggravating Factors Walking Pain Relief Interventions Used By Medication Patient Pain Score Pain Score 0: Self Report Lower Extremity Range of Motion Knee Range of Motion Right Knee Flexion Range of Motion - Active 94 Left Knee Flexion Range of Motion - Active 110 Knee Flexion Range of Motion - Passive 114 Knee Extension Range of Motion - Active 0 Query Text: Knee Range of Motion Limitations Pain,Soft Tissue Restriction Knee Range of Motion Comments measured in supine Lower Extremity Muscle Strength Testing Hip S
--- NOTE | 2019-10-29 16:10 | PCPTNOTE ---
Patient called & cancelled scheduled appointment this date due to having to work later.
--- NOTE | 2019-11-17 21:13 | PTOPEVAL ---
Thank you for referring Nelson Monsalve to [facility] [place].? The patient is scheduled to be seen for therapy? 2x/week for 3 weeks. Please review, sign, date and return this plan of care ENEIDA. I agree with and certify that the following plan of care is medically necessary. Referring Physician Date Admitting Provider: Attending Provider: Armand Krishnan MD Physical Therapy Progress Note *PT Outpatient Evaluation Start: 09/18/19 14:29 Freq: Status: Active Protocol: Document 11/15/19 15:30 CAP (Rec: 11/15/19 16:30 CAP [email or web address]) Therapy Assessment Status Assessment Status Assessment Status Re-evaluation Outpatient Past Medical History Past Medical History Source of Past Medical History Patient,Recalled from Previous Visit, Confirmed with Patient /Family Neurological History Hx Neurological Disorders No Significant History Cardiovascular History Hx Hypertension Yes: TAKES MED Respiratory History Hx Respiratory Disorders No Significant History Gastrointestinal History Hx Other Gastrointestinal Disorders Yes: NORMAL COLONOSCOPY Genitourinary History Hx Genitourinary Disorders No Significant History Musculoskeletal History Hx Arthritis Yes: OA BILAT KNEES Hx Joint Replacement Yes: left TKR 09/03/19 Hematological History Hx Other Hematological Disorders Yes: SPLEENECTOMY AGE 7, SPHEROCYTOSIS Endocrine History Hx Endocrine Disorders No Significant History HEENT History Hx Other HEENT Disorders Yes: NECK CYST. HX LASIK. Integumentary History Hx Skin Disorders No Significant History Reproductive History Hx Other Reproductive Disorders Yes: UTERINE ABLATION HX AND RT BREAST BX Psychosocial History Hx Psychiatric Disorders No Significant History Pain History Has Past Pain Affected Your Daily Life Yes: KNEES Anesthesia History Hx Other Anesthesia Reactions Yes: INTUBATED AFTER COLONOSCPY Evaluation Information Problem Diagnosis left TKR Onset 09/03/19 Additional Evaluation Detail Pt is s/p TKR on 09/03/19 with hospital stay from 09/02- Subjective Information She continues to take pain Query Text:As Reported By Patient/ medication 1x/day. She is Family performing the bike 1-2 x/day for 15-20 min. She cont to have pain and difficulty bending the left knee when descending the steps . She is using the cane only for distance. She reports
--- NOTE | 2019-12-17 16:39 | PCPTNOTE ---
This treatment is being continued on visit number 26 to [id number]. Please see documentation on both accounts to view progress. Completed interventions, outcomes, and problems have been marked as Inactive to facilitate the copying of the Care plan routine for recurring accounts.
== END 2019-12-17 11:13 | disposition home or self-care (01) ==
LOC: ANHPT 15:45
PROVIDERS: PCP Nurse Practitioner; Visit Provider Orthopaedic Surgery
DX: Z47.1 Aftercare following joint replacement surgery (principal); Z96.651 Presence of right artificial knee joint
CPT/HCPCS: 97110; 97112; 97116; 97140; 97162; 97530

== ENCOUNTER 2019-12-25 11:32 | Outpatient (RCR) | payer OTHER, SELFPAY ==
--- NOTE | 2019-12-17 16:40 | PCPTNOTE ---
The treatment documented on this account is a continuation of the treatment documented on visit number 26 from [id number]. Please see documentation on both accounts to view progress. The Plan of Care has been transitioned and updated within the new V#. I have addressed and agree with the discipline specific Problems, Interventions, and Goals for the current certification period. Completed interventions, outcomes, and problems have been marked as Inactive to facilitate the copying of the Care plan routine for recurring accounts.
--- NOTE | 2019-12-25 16:26 | PTOPEVAL ---
Thank you for referring Nelson Monsalve to [facility].? Pt has received 27 therapy visits to address her left knee impairments related to TKR. She demonstrates 0-118 dg knee range, 5/5 LE strength except hip abd 4-/5 and improved walking speed without increased pain. She is indep with her HEP. She has reached maximal potential with skilled therapy services with therapy goals met. DC skilled PT services at this time. Please review, sign, date and return this plan of care ENEIDA. I agree with and certify that the following plan of care is medically necessary. Referring Physician Date Admitting Provider: Attending Provider: Armand Krishnan MD Referring Provider: *PT Outpatient Evaluation Start: 12/17/19 16:41 Freq: Status: Active Protocol: Document 12/25/19 15:40 CAP (Rec: 12/25/19 16:13 CAP [id number]) Therapy Assessment Status Assessment Status Assessment Status Re-evaluation/Discharge Note Evaluation Information Problem Diagnosis left TKR Onset 09/03/19 Additional Evaluation Detail Pt is s/p TKR on 09/03/19 with hospital stay from 09/02- Subjective Information She continues to take Alieve Query Text:As Reported By Patient/ 1x/day. She is performing the Family bike every other day for 15-20 min. She denies any problems with bending the left knee, denies problems with negotiating steps or walking. She is able to walk faster and go shopping without difficulty. She is able to cheryl walking in [employer] or [employer]. Pain Assessment Timing of Pain Assessment Timing of Pain Assessment Re-assessment Pain Scale Pain Scale Used Numeric (1 - 10) Self Report Pain Assessment Right Knee(s) Reported Pain Level 4 Pain Description Aching,Sharp Knee(s) Reported Pain Level 0 Pain Score Pain Score 0,4: Self Report Lower Extremity Range of Motion Knee Range of Motion Left Knee Flexion Range of Motion - Active 118 Knee Extension Range of Motion - Active 0 Query Text: Lower Extremity Muscle Strength Testing Hip Strength Bilateral Hip Flexion Strength 5 Normal Hip Extension Strength 5 Normal Hip Abduction Strength 4- Good - Knee Strength Bilateral Knee Flexion Strength 5 Normal Knee Extension Strength 5 Normal Palpation Assessment Palpation Palpation no tenderness or tightness of left ant knee healed incition Special Tests-Lower Extremity Hip
== END 2019-12-26 10:39 | disposition home or self-care (01) ==
LOC: ANHPT 11:32
PROVIDERS: PCP Nurse Practitioner; Visit Provider Orthopaedic Surgery
DX: Z47.1 Aftercare following joint replacement surgery (principal); Z96.651 Presence of right artificial knee joint
CPT/HCPCS: 97110

== ENCOUNTER 2020-01-14 12:04 | Outpatient (CLI) | payer OTHER, SELFPAY ==
[2020-01-14 13:07] LABS: Basophils Absolute Auto 0.1 K/mm3 (0.0-0.1); Basophils Percent Auto 0.7 % (0.2-1.2); Eosinophils Absolute Auto 0.4 K/mm3 (0-0.3); Eosinophils Percent Auto 3.8 % (0-4.4); Hematocrit 40.2 % (37.0-47.0); Hemoglobin 14.1 g/dL (12.0-15.0); Immature Granulocyte Absolute 0.03 K/mm3 (0.00-0.031); Immature Granulocyte Percent A 0.3 % (0-0.5); Lymphocytes Absolute Auto 3.97 K/mm3 (0.9-3.2); Lymphocytes Percent Auto 38.4 % (18.3-44.2); Mean Corpuscular HGB Conc 35.1 g/dl (32-36); Mean Corpuscular Hemoglobin 31.3 pg (26-34); Mean Corpuscular Volume 89.1 fl (80-100); Mean Platelet Volume 8.7 fl (7.4-10.4); Monocytes Percent Auto 9.2 % (2.6-8.5); Neutrophils Absolute Auto 4.9 K/mm3 (1.3-6.7); Neutrophils Percent Auto 47.6 % (45.5-73.1); Platelet Count Result 549 k/mm3 (150-375); Red Blood Count 4.51 M/mm3 (4.2-5.4); White Blood Count 10.3 K/mm3 (4.5-10.0)
[2020-01-14 13:18] LABS: Albumin Level 4.2 g/dL (3.5-5.1)
[2020-01-14 13:19] LABS: Hemoglobin A1C 4.8 % (<5.7)
[2020-01-14 13:21] LABS: Anion Gap 5 mmol/L (8-16); Blood Urea Nitrogen 13 mg/dL (7-17); Calcium 9.6 mg/dL (8.4-10.2); Carbon Dioxide 35 mmol/L (22-30); Chloride 104 mmol/L (98-107); Estimated Glomerular Filt Rate > 60; Glucose 95 mg/dL (65-105); Potassium 4.3 mmol/L (3.4-5.0); Sodium 144 mmol/L (137-145)
[2020-01-14 13:33] LABS: Urine Cotinine NEGATIVE
== END 2020-01-14 12:05 | disposition home or self-care (01) ==
PROVIDERS: Anesthesiology; PCP Nurse Practitioner; Visit Provider Orthopaedic Surgery
DX: Z01.812 Encounter for preprocedural laboratory examination (principal); M17.11 Unilateral primary osteoarthritis, right knee
CPT/HCPCS: 36415; 80048; 80307; 82040; 83036; 85025; 87081

== ENCOUNTER 2020-01-26 18:12 | Inpatient (IN) | payer OTHER, SELFPAY ==
--- NOTE | ~2020-01-26 | XR_ITS ---
EXAMINATION: XR chest 1V portable DATE: 01/27/2020 17:13 INDICATION: COVID 19 pneumonia. Hypoxemia. TECHNIQUE: frontal view of the chest was obtained. COMPARISON: Chest radiograph dated 01/26/2020 FINDINGS: There are patchy bilateral airspace opacities throughout the right lung and in the left mid and lower lung zones which appear slightly decreased since the prior study. No pleural effusion or pneumothora x. The cardiomediastinal silhouette is within normal limits for AP technique. IMPRESSION: 1. Patchy bilateral lung disease consistent with multifocal pneumonia which appears slightly improved . Reviewed, dictated and finalized at location H. P COLLECTOR IMPRESSION: 1. Patchy bilateral lung disease consistent with multifocal pneumonia which sarah ears slightly improved.
--- NOTE | ~2020-01-26 | XR_ITS ---
EXAMINATION: XR chest 1V portable EXAM DATE: 01/26/2020 19:10 INDICATION: Chest pain, shortness of breath, fever. TECHNIQUE: Portable AP frontal chest x-ray was obtained. Comparison is made to prior examination from 09/04/2019. FINDINGS: Bilateral patchy ill-defined peripheral predominant opacities with relative sparing of the left upper lobe. Appearance is typical of early stage COVID 19, acute lung injury. Less likely acute possibilities include influenza, pulmonary edema or hemorrhage. Some chronic processes that can have this appearance include cryptogenic organizing pneumonia, desquamative interstitial pneumonia, nonsp ecific interstitial pneumonia, drug toxicity, connective tissue disease. Please clinically correlate and test as appropriate. Opacities are new compared to August. The cardiomediastinal silhouette is prominent but magnified on this AP technique. There is no pneumot horax suspected. There are no pleural effusions. Mild thoracic spondylosis. IMPRESSION moderate amount of bilateral airspace disease suspicious for COVID-19 pneumonia. Clinical correlation. Reviewed, dictated and finalized at location A. LEDGE MANAGEMENT ADVISOR IMPRESSION moderate amount of bilateral airspace disease suspicious for COVID-1 9 pneumonia. Clinical correlation.
[2020-01-26 18:35] VITALS: BP 150/71; PULSE 101; RESP 24; TEMP 38.2; O2SAT 85
--- NOTE | 2020-01-26 18:35 | ECG_ITS ---
Measurements Intervals [place] Rate: 102 P: 24 MT: 161 QRS: 10 QRSD: 65 T: 23 QT: 325 QTc: 425 Interpretive Statements SINUS TACHYCARDIA BORDERLINE T WAVE ABNORMALITY- INFERIOR LEADS BORDERLINE ECG Electronically Signed On 01-27-2020 8:19:19 LIQUID CENTER ASSEMBLER by [place] D.O.
[2020-01-26 19:12] LABS: Basophils Percent Auto 0.2 % (0.2-1.2); Hematocrit 41.8 % (37.0-47.0); Hemoglobin 14.4 g/dL (12.0-15.0); Immature Granulocyte Absolute 0.03 K/mm3 (0.00-0.031); Immature Granulocyte Percent A 0.3 % (0-0.5); Lymphocytes Absolute Auto 2.58 K/mm3 (0.9-3.2); Lymphocytes Percent Auto 29.1 % (18.3-44.2); Mean Corpuscular HGB Conc 34.4 g/dl (32-36); Mean Corpuscular Hemoglobin 30.9 pg (26-34); Mean Corpuscular Volume 89.7 fl (80-100); Mean Platelet Volume 8.9 fl (7.4-10.4); Monocytes Absolute Auto 0.5 K/mm3 (0.1-0.6); Monocytes Percent Auto 5.2 % (2.6-8.5); Neutrophils Absolute Auto 5.8 K/mm3 (1.3-6.7); Neutrophils Percent Auto 65.2 % (45.5-73.1); Nucleated Red Blood Cells Perc 0.3 % (0.0-0.2); Platelet Count Result 341 k/mm3 (150-375); Red Blood Count 4.66 M/mm3 (4.2-5.4); Red Cell Distribution Width 13.6 % (11.5-14.5); White Blood Count 8.9 K/mm3 (4.5-10.0)
[2020-01-26 19:14] VITALS: PULSE 101
[2020-01-26 19:23] LABS: INR 0.9; Prothrombin Time 12.5 Seconds (11.1-14.7)
[2020-01-26 19:24] LABS: Partial Thromboplastin Time 32.1 SECONDS (22.3-36.8)
--- NOTE | 2020-01-26 19:25 | PC.NURSE ---
Report to JORGE ALBERTO Melton, to continue care. Dr. Resendiz at bedside for exam.
[2020-01-26 19:30] LABS: Anion Gap 11 mmol/L (8-16); Blood Urea Nitrogen 14 mg/dL (7-17); Carbon Dioxide 29 mmol/L (22-30); Chloride 103 mmol/L (98-107); Estimated CRCL calculation 86 ml/min; Estimated Glomerular Filt Rate > 60; Glucose 107 mg/dL (65-105); Potassium 3.6 mmol/L (3.4-5.0); Sodium 143 mmol/L (137-145)
[2020-01-26] MEDS: ALBUTEROL SULFATE (*SP) AEROSOL 1 PUFF 8 PUFF INHALATION (19:36)
[2020-01-26 19:39] VITALS: PULSE 107; RESP 19
[2020-01-26 19:46] LABS: Alveolar/Arterial O2 Gradient 75.8 mmHg; Base Excess ABG 2.2 mEq/l (+/-2.0); Carboxyhemoglobin 0.7 % THb (0-2.0); Fractional Inspired Oxygen 28 %; HCO3 ABG 26.6 mEq/l (22.0-26.0); Methemoglobin ABG 0.4 %THb (0-1.5); Oxygen Content ABG 20.1 %vol (16.0-22.0); Oxygen Saturation ABG 95.5 % (95.0-100.0); Oxyhemoglobin 94.1 % THb (90.0-100.0); PCO2 ABG 40.8 mmHg (35.0-45.0); PO2 ABG 75.7 mmHg (80.0-100.0); Reduced Hemoglobin 4.8 %THb (0-5.0); Total Hemoglobin 15.2 g/dL (12.0-18.0); pH ABG 7.432 (7.350-7.450)
[2020-01-26 19:47] LABS: Device NASAL CANNULA; Modified Allen's Test Pass; Site Drawn LEFT RADIAL
[2020-01-26] MEDS: ASPIRIN 81 MG CHEWABLE TABLET 324 MG PO (19:58)
[2020-01-26] MEDS: DEXAMETHASONE SOD PHOS INJ 4 MG/ML VIAL 10 MG IV PUSH (20:02)
--- NOTE | 2020-01-26 20:02 | ED.GENADULT ---
HPI - General Adult General Chief complaint: Chest Pain Stated complaint: Chest pain SOB Time Seen by Provider: 01/26/20 18:59 Source: patient Mode of arrival: ambulatory Limitations: no limitations History of Present Illness HPI narrative: This patient is a 59 year old female who presents for evaluation of chest pain and shortness of breath. She reports 2 of her daughters tested positive for COVID 19 on Monday. On Monday, she developed cough, fever, body aches and nausea. Yesterday she developed shortness of breath and chest pain. Her chest pain is located across her chest and her upper back. This pain is constant. Her also has symptoms concerning for COVID . She denies lung disease or cardiac history. She also was noted to have a fever of 100.8F on arrival to ER with an oxygen saturation of 85% on room air. Related Data Home Medications Medication Instructions Recorded Confirmed olmesartan-hydrochlorothiazide 1 tablet PO QAM 01/14/20 01/27/20 [Benicar HCT] Allergies Allergy/AdvReac Type Severity Reaction Status Date / Time No Known Allergies Allergy Verified 01/27/20 00:30 Review of Systems Review of Systems: All systems reviewed & are unremarkable except as noted in HPI and below Constitutional: Constitutional: Reports chills, Reports fatigue and Reports fever(s) Cardiovascular: Cardiovascular: Reports chest pain Respiratory: Respiratory: Reports cough and Reports dyspnea Gastrointestinal: Gastrointestinal: Denies abdominal pain, Denies diarrhea, Reports nausea and Denies vomiting PMFSH Past Medical History Medical History (Updated 01/27/20 @ 07:33 by Theresa Resendiz MD) Bilateral primary osteoarthritis of knee Hypertension Thyroid mass of unclear etiology Surgical History Surgical History History of endometrial ablation Family History Family History Mother Family history of diabetes mellitus in first degree relative Hypertension Cerebrovascular accident Father Hypertension Social History Social History Smoking status: Never smoker Second hand tobacco smoke exposure: No Alcohol intake: never Substance use: never Substance use type: does not use Gender identity (if verbalized by the patient): Female Spiritual care concerns: No Exam Const: General: alert and ill appearing Orientation/consciousness: patient oriented x3 Other: mild distress HENMT: Head: atraumatic Ears: TM's normal bilaterally Face and sinus: face symmetric Eyes: EOM: EOMs intact bilaterally Resp: Effort & Inspection: no retractions, tachypneic and no use of accessory muscles Auscultation: diminished lung sounds Cardio: Rate: tachycardic Rhythm: regular rhythm Heart sounds: no murmurs GI: GI Palp: Yes Soft to palpation, No Tenderness to palpation present (GI), No Guarding due to palpation present (GI) and No Rigid due to palpation Skin: General skin exam: normal color Rashes: no rashes Neuro: General: patient oriented x3 and moves all extremities Course Consultations Consultation #1: I discussed case with DR. Marlow and he accepts patient to the medical floor. Date: 01/26/20 Time: 20:45 Vital Signs Vital signs: Vital Signs Temperature 100.8 F H 01/26/20 18:35 Pulse Rate 101 H 01/26/20 18:35 Respiratory Rate 24 H 01/26/20 18:35 Blood Pressure 150/71 H 01/26/20 18:35 Pulse Oximetry 85 L 01/26/20 18:35 Temperature 97.7 F 01/27/20 04:00 Pulse Rate 81 01/27/20 04:00 Respiratory Rate 20 01/27/20 04:00 Blood Pressure 118/70 01/27/20 04:00 Pulse Oximetry 98 01/27/20 04:00 Medical Decision Making Vital Signs Vital Signs: Vital Signs Temperature 100.8 F H 01/26/20 18:35 Pulse Rate 101 H 01/26/20 18:35 Respiratory Rate 24 H 01/26/20 18:35 Blood Pressure
[2020-01-26 20:06] LABS: Troponin I < 0.012 ng/mL (0.000-0.034)
[2020-01-26] MEDS: ONDANSETRON INJ 4 MG/2 ML VIAL IV PUSH (20:06)
[2020-01-26 20:13] LABS: Lactic Acid Reflex 1.1 mmol/L (0.7-2.1)
[2020-01-26 21:16] LABS: Alanine Aminotransferase 29 U/L (4-35); Albumin Level 3.8 g/dL (3.5-5.1); Alkaline Phosphatase 61 U/L (38-126); Aspartate Amino Transferase 58 U/L (14-36); Bilirubin,Total 0.7 mg/dL (0.2-1.3); CRP 5.1 mg/dL (<1.0); Magnesium 2.1 mg/dL (1.6-2.3)
[2020-01-26 22:45] LABS: Troponin I < 0.012 ng/mL (0.000-0.034)
[2020-01-26 23:07] VITALS: BP 116/69; PULSE 107; RESP 19; O2SAT 96
[2020-01-26 23:35] VITALS: BP 117/74; PULSE 101; RESP 22; TEMP 37.4; O2SAT 92; BMI 29.1
[2020-01-27] VITALS (9 sets, daily range): BP systolic 105–132; BP diastolic 54–71; PULSE 81–100; RESP 18–22; TEMP 36.5–37.1; O2SAT 90–98
--- NOTE | 2020-01-27 00:27 | ADMGEN ---
This patient, Nelson Wolfetlecarlos, was admitted to [address] [place] [address] Room 311-01. Patient/family oriented to hospital policies and general routines including ID bracelet, bed and alarms, visiting hours, pain management, procedures, bathroom and other care routines, personal items, smoking policy, room service/diet, and visiting hours. Information on how to activate the Rapid Response Team has been discussed. Patient/Family are encouraged to report perceived risks to care and to ask questions if they do not understand what they are told or what they should do.
--- NOTE | 2020-01-27 00:45 | PM.IMHP ---
H&P: HPI History of Present Illness Date/Time: 01/27/20 00:45 Chief complaint: covid pneumonia Narrative: This is a pleasant 59-year-old female with known history of chronic hypertension who presented to the hospital with a chief complaint of increased shortness of breath and pleuritic upper chest discomfort. her symptoms started 3 days ago when she began to have low grade fever, nonproductive cough, nausea and dry heaving. She describes sleeping all day Monday and Monday when she woke up around 2:00 p.m. she started to have significant shortness of breath. She decided to come to the hospital as her shortness of breath was not improving. The patient's chest discomfort is all along the top of her chest and her upper back. She describes her discomfort as worse with any breathing. She reports that both of her daughters tested positive for callahan virus. No other complaints tonight. Review of Systems Review of Systems: All systems reviewed & are unremarkable except as noted in HPI and below PMFSH Past Medical History Medical History Bilateral primary osteoarthritis of knee Hypertension Thyroid mass of unclear etiology Surgical History Surgical History History of endometrial ablation Family History Family History Mother Family history of diabetes mellitus in first degree relative Hypertension Cerebrovascular accident Father Hypertension Social History Social History Smoking status: Never smoker Second hand tobacco smoke exposure: No Alcohol intake: never Substance use: never Substance use type: does not use Gender identity (if verbalized by the patient): Female Spiritual care concerns: No Meds Home Medications and Allergies Home Medications Medication Instructions Recorded Confirmed Type potassium chloride 10 mEq 10 meq PO DAILY #90 tablet 12/30/19 01/26/20 Rx tablet,extended release olmesartan-hydrochlorothiazide 1 tablet PO QAM 01/14/20 01/27/20 History [Benicar HCT] Allergies Allergy/AdvReac Type Severity Reaction Status Date / Time No Known Allergies Allergy Verified 01/27/20 00:30 Vital Signs Vital Signs - 24 hr 01/26/20 18:35 01/26/20 19:14 01/26/20 19:39 Temperature 38.2 C H Pulse Rate 101 H 101 H 107 H Respiratory Rate 24 H 19 Blood Pressure 150/71 H Pulse Oximetry 85 L 01/26/20 23:07 01/26/20 23:35 Temperature 37.4 C Pulse Rate 107 H 101 H Respiratory Rate 19 22 H Blood Pressure 116/69 117/74 Pulse Oximetry 96 92 Exam Const: General: cooperative, no acute distress, alert, awake, ill appearing acutely and tired appearing Nutritional Appearance: overweight Orientation/consciousness: patient oriented x3 HENMT: Head: normal to inspection General nose exam: Normal external nose present Face and sinus: normal facial exam Mouth: Yes Normal oral and palatal mucosa present and Yes oropharynx normal Eyes: Pupils: Equal, round and reactive pupils present EOM: EOMs intact bilaterally Neck: Neck: supple and no JVD Thyroid: thyroid normal Lymphatic: lymphadenopathy not noted Resp: Effort & Inspection: normal respiratory effort Auscultation: rales bilateral Cardio: Rate: tachycardic Rhythm: regular rhythm Heart sounds: no murmurs GI: Inspection: normal to inspection Auscultation: normal bowel sounds Skin: General skin exam: normal color and no rashes or lesions noted Neuro: General: patient oriented x3 Cranial nerves: Yes CN's II-XII intact bilaterally and Yes Equal, round and reactive pupils present Speech: normal speech Motor exam (neuro): 5/5 motor strength present throughout Sensory Exam: normal sensation Extrem: General: normal to inspection and no edema Psych: Mental Status: mental status hakeem
[2020-01-27] MEDS: SODIUM CHLORIDE 0.9% IV 1,000 ML 75 ML IV CONT ×2 (00:53→16:20)
[2020-01-27 01:21] LABS: Troponin I < 0.012 ng/mL (0.000-0.034)
--- NOTE | 2020-01-27 06:33 | PCRCNOTE ---
Window of time for administration has passed. See next scheduled administration.
[2020-01-27 07:16] LABS: Basophils Percent Auto 0.1 % (0.2-1.2); Hemoglobin 14.3 g/dL (12.0-15.0); Immature Granulocyte Absolute 0.02 K/mm3 (0.00-0.031); Immature Granulocyte Percent A 0.3 % (0-0.5); Lymphocytes Absolute Auto 1.43 K/mm3 (0.9-3.2); Lymphocytes Percent Auto 19.8 % (18.3-44.2); Mean Corpuscular Hemoglobin 30.2 pg (26-34); Mean Corpuscular Volume 88.8 fl (80-100); Mean Platelet Volume 9.1 fl (7.4-10.4); Monocytes Absolute Auto 0.3 K/mm3 (0.1-0.6); Monocytes Percent Auto 4.4 % (2.6-8.5); Neutrophils Absolute Auto 5.4 K/mm3 (1.3-6.7); Neutrophils Percent Auto 75.4 % (45.5-73.1); Nucleated Red Blood Cells Perc 0.3 % (0.0-0.2); Platelet Count Result 378 k/mm3 (150-375); Red Blood Count 4.73 M/mm3 (4.2-5.4); Red Cell Distribution Width 13.4 % (11.5-14.5); White Blood Count 7.2 K/mm3 (4.5-10.0)
[2020-01-27 07:36] LABS: Alanine Aminotransferase 32 U/L (4-35); Albumin Level 3.9 g/dL (3.5-5.1); Alkaline Phosphatase 61 U/L (38-126); Anion Gap 7 mmol/L (8-16); Aspartate Amino Transferase 61 U/L (14-36); Bilirubin,Total 0.6 mg/dL (0.2-1.3); Blood Urea Nitrogen 12 mg/dL (7-17); Calcium 9.1 mg/dL (8.4-10.2); Carbon Dioxide 31 mmol/L (22-30); Chloride 105 mmol/L (98-107); Estimated CRCL calculation 98 ml/min; Estimated Glomerular Filt Rate > 60; Glucose 133 mg/dL (65-105); Potassium 4.4 mmol/L (3.4-5.0); Sodium 143 mmol/L (137-145)
[2020-01-27] MEDS: ALBUTEROL SULFATE (*SP) AEROSOL 1 PUFF 2 PUFF INHALATION ×4 (08:18→21:26)
[2020-01-27] MEDS: OLMESARTAN MEDOXOMIL 20 MG TABLET 40 MG PO (09:16)
[2020-01-27] MEDS: hydroCHLOROthiazide 25 MG TABLET PO (09:16)
[2020-01-27] MEDS: DEXAMETHASONE 2 MG TABLET 6 MG PO (11:54)
--- NOTE | 2020-01-27 17:00 | PM.IMPN ---
Progress Note: A&P Assessment and Plan (1) Acute respiratory failure with hypoxia: Code(s): J96.01 - Acute respiratory failure with hypoxia Status: Acute Assessment and Plan: patient has been admitted to med surg, continue oxygen supplementation and wean off when possible. Continuous pulse oximetry. Continue treatment for pneumonia. Since her COVID testing has not returned - will continue Azithro and Rocephin IV antibiotics, re-evaluate after SARS results return. Continue bronchodilators. incentive spirometer RT assess and treat. (2) Pneumonia: Qualifiers: Laterality: bilateral Lung location: unspecified part of lung Pneumonia type: due to unspecified organism Qualified Code(s): J18.9 - Pneumonia, unspecified organism Code(s): J18.9 - Pneumonia, unspecified organism Status: Acute Assessment and Plan: Likely secondary to Coronavirus. Patient does not have very high fevers or elevated white count. COVID-19 results pending. ORdered sputum culture. Continue oxygen supplementation as well as bronchodilators and steroid therapy. RT assess and treat. (3) Suspected 2019 novel coronavirus infection: Code(s): Z20.828 - Contact with and (suspected) exposure to other viral communicable diseases Status: Acute Assessment and Plan: Rule acute Coronavirus as the patient's family members were callahan virus positive. Patient has been swab in the ER. Continue droplet isolation. Continue supportive care. COVID-19 results pending. But likely COVID Continue dexamethasone. Added Remdesivir and Dexamethasone. (4) Sepsis: Qualifiers: Acute respiratory failure type: with hypoxia Sepsis acute organ dysfunction status: with acute organ dysfunction Sepsis type: sepsis due to unspecified organism Severe sepsis acute organ dysfunction type: acute respiratory failure Severe sepsis shock status: without septic shock Qualified Code(s): A41.9 - Sepsis, unspecified organism; R65.20 - Severe sepsis without septic shock; J96.01 - Acute respiratory failure with hypoxia Code(s): A41.9 - Sepsis, unspecified organism Status: Acute Assessment and Plan: source of sepsis appears to be viral COVID blood /sputum /urine cultures. Ordered UA flex . ORdered sputum culture. Monitor acid-base status. Monitor urine output stable hemodynamics monitor vital signs closely. CXR every 48 hours continue Telemetry monitoring on 2-3 L of oxygen per nasal cannula. Trops x 3 negative Lactic 1.1 CRP improved from 25 to 5.1 (5) Hypertension: Qualifiers: Hypertension type: unspecified Qualified Code(s): I10 - Essential (primary) hypertension Code(s): I10 - Essential (primary) hypertension Status: Chronic Assessment and Plan: controlled continuous cardiac telemetry monitoring monitor blood pressure. continue home HCTZ SBP 118/70, HR 81-107 Continue Benicar p.o. Additional Plan I suspect the patient will likely need at least 2 nights of inpatient medical therapy for her acute respiratory failure and pneumonia. date of service was January 27, 2020 at approximately 12:15 am. Subjective Date/time seen: 01/27/20 17:00 Patient was sitting in bed when I went to examine her today. She was on 2-3 L of oxygen per nasal cannula. She does have difficulty carrying on a conversation without shortness of breath. She states that she has been able to move about her hospital room with her oxygen tubing extension. She was able to tell me of her concerns and has a list of medications as well as interventions that she wanted ordered. I did agree with quite a few and have ordered the following: SANJEEV cardona, SCDs, anti-coagulation/DVT prophylaxis Lovenox 40 Q 12 hr, Aspirin 81mg daily, Tylenol IV Q6H for pain or fever, and CXR every other day. I also ordered: Dexamethasone, IV antiviral, and Incentive spirometer. Continue Card
[2020-01-27] MEDS: ASPIRIN 81 MG ENTERIC TABLET PO (18:22)
[2020-01-27] MEDS: guaiFENesin 12 HR 600 MG TABCR 1200 MG PO (20:23)
[2020-01-27] MEDS: ENOXAPARIN 40 MG/0.4 ML SYRINGE SUB-Q (20:23)
[2020-01-27 21:01] LABS: Add Urine Microscopic? YES; Appearance Urine Clear (Clear); Bacteria Urine Trace /hpf; Bilirubin Urine Negative (Negative); Blood Urine Negative (Negative); Color Urine Straw (Yellow); Glucose Urine UA Negative (Negative); Ketones Urine Negative (Negative); Leukocyte Esterase Ur Negative LEU/UL (Negative); Nitrate Urine Negative (Negative); Protein Urine Negative (Negative); Squamous Epithelial Cell Urine Occasional /hpf (Few); WBC Urine 0-3 /hpf
[2020-01-27 21:22] LABS: SARS-CoV-2 RNA PCR Positive
[2020-01-28] VITALS (10 sets, daily range): BP systolic 106–133; BP diastolic 61–81; PULSE 77–97; RESP 20–22; TEMP 36.2–37.2; O2SAT 87–96
[2020-01-28] MEDS: REMDESIVIR 200 MG/NS 250 ML 200 MG/250 ML BAG 250 MG IVPB (01:51)
[2020-01-28 06:24] LABS: Hematocrit 40.4 % (37.0-47.0); Hemoglobin 13.7 g/dL (12.0-15.0); Mean Corpuscular HGB Conc 33.9 g/dl (32-36); Mean Corpuscular Hemoglobin 30.4 pg (26-34); Mean Corpuscular Volume 89.6 fl (80-100); Mean Platelet Volume 9.3 fl (7.4-10.4); Platelet Count Result 442 k/mm3 (150-375); Red Blood Count 4.51 M/mm3 (4.2-5.4); Red Cell Distribution Width 13.7 % (11.5-14.5); White Blood Count 12.5 K/mm3 (4.5-10.0)
[2020-01-28 06:31] LABS: Alanine Aminotransferase 30 U/L (4-35); Albumin Level 3.8 g/dL (3.5-5.1); Alkaline Phosphatase 64 U/L (38-126); Anion Gap 7 mmol/L (8-16); Aspartate Amino Transferase 55 U/L (14-36); Bilirubin,Total 0.4 mg/dL (0.2-1.3); Blood Urea Nitrogen 13 mg/dL (7-17); Calcium 9.5 mg/dL (8.4-10.2); Carbon Dioxide 34 mmol/L (22-30); Chloride 104 mmol/L (98-107); Estimated CRCL calculation 85 ml/min; Estimated Glomerular Filt Rate > 60; Glucose 122 mg/dL (65-105); Lactate Dehydrogenase 1022 U/L (313-618); Potassium 4.1 mmol/L (3.4-5.0); Sodium 145 mmol/L (137-145)
[2020-01-28] MEDS: ALBUTEROL SULFATE (*SP) AEROSOL 1 PUFF 2 PUFF INHALATION ×4 (08:53→20:58)
[2020-01-28] MEDS: ACETAMINOPHEN 325 MG TABLET 650 MG PO ×3 (08:57→20:48)
[2020-01-28] MEDS: ASPIRIN 81 MG ENTERIC TABLET PO (08:58)
[2020-01-28] MEDS: OLMESARTAN MEDOXOMIL 20 MG TABLET 40 MG PO (08:59)
[2020-01-28] MEDS: ENOXAPARIN 40 MG/0.4 ML SYRINGE SUB-Q ×2 (08:59→20:47)
[2020-01-28] MEDS: hydroCHLOROthiazide 25 MG TABLET PO (08:59)
[2020-01-28] MEDS: DEXAMETHASONE 2 MG TABLET 6 MG PO (09:00)
[2020-01-28] MEDS: PANTOPRAZOLE 40 MG TABLET PO (09:00)
[2020-01-28] MEDS: guaiFENesin 12 HR 600 MG TABCR 1200 MG PO ×2 (09:00→20:48)
--- NOTE | 2020-01-28 16:09 | PM.IMPN ---
Progress Note: A&P Assessment and Plan (1) Acute respiratory failure due to COVID-19: Code(s): U07.1 - COVID-19; J96.00 - Acute respiratory failure, unspecified whether with hypoxia or hypercapnia Status: Acute Assessment and Plan: Likely secondary to COVID PNA. Patient now on 4L O2 NC. Overall feeling somewhat better today. Continue oxygen supplementation and wean off when possible. Continuous pulse oximetry. Continue treatment for pneumonia as below. Continue bronchodilators. RT assess and treat. (2) Pneumonia due to COVID-19 virus: Code(s): U07.1 - COVID-19; J12.89 - Other viral pneumonia Status: Acute Assessment and Plan: COVID testing positive. Bacterial coinfection less likely and IV antibiotics initiated from the ED were discontinued. BCx shows NGTD x 2; sputum culture awaiting to be collected Remdesivier initiated on 01/27 (day1/5) Dexamethasone initiated on 01/25 (day 3/10) Continue oxygen supplementation as well as bronchodilators and steroid therapy. RT assess and treat. Continue supportive care with PRN tylenol for fevers, PRN mucinex for cough, prn albuterol for SOB Lovenox BID for DVT ppx (3) Sepsis: Qualifiers: Sepsis type: sepsis due to unspecified organism Sepsis acute organ dysfunction status: with acute organ dysfunction Severe sepsis acute organ dysfunction type: acute respiratory failure Acute respiratory failure type: with hypoxia Severe sepsis shock status: without septic shock Qualified Code(s): A41.9 - Sepsis, unspecified organism; R65.20 - Severe sepsis without septic shock; J96.01 - Acute respiratory failure with hypoxia Code(s): A41.9 - Sepsis, unspecified organism Status: Acute Assessment and Plan: Source of sepsis appears to be pulmonary; fever, tachycardia - both improving since admission. BCx shows NGTD x 2. Monitor acid-base status. Monitor urine output and vital signs closely.' Encouraged PO intake Treat COVID PNA as detailed above (4) Hypertension: Qualifiers: Hypertension type: unspecified Qualified Code(s): I10 - Essential (primary) hypertension Code(s): I10 - Essential (primary) hypertension Status: Chronic Assessment and Plan: BP 130s sys monitor blood pressure. Continue home antihypertensives Subjective Date/time seen: 01/28/20 16:09 Interval history: Patient is a 59 yo F with known history of chronic hypertension who is seen in follow up for COVID pneumonia and acute respiratory failure with hypoxia likely due to same. Patient states she feels somewhat better today. Still SOB off and on, but overall thinks her cough has improved and she is able to take deeper breaths. She occasionally produces sputum that is non-bloody. Chest discomfort has also improved. She still has a headache. No other complaints at the moment. Denies current cp/palpitations, n/v/d/c, abd pain, changes in BMs, dysuria, calf pain/swelling. Review of Systems Review of Systems: All systems reviewed & are unremarkable except as noted in HPI and below Exam Narrative: Exam Narrative: General: Patient sitting upright in bed at time of visit; acutely ill appearing HEENT: Normocephalic, EOMI, oral mucosa moist. Cardiovascular: Rate and rhythm are regular. No notable murmur, rub, or gallop. Respiratory: Coarse breath sounds, particularly on right lung mathews. Speaks in short sentences. Non-labored breathing. On 4L O2 NC Abdomen: Soft, non-tender, non-distended, bowel sounds present. Extremities: Peripheral pulses intact. No edema. NTTP b/l calves Neuro: No focal neurological deficits. Speech is clear. Objective Data Vital Signs Vital Signs: Last Vital Signs Temp 98.8 F 01/28/20 12:00 Pulse 95 01/28/20 12:00 Resp 22
[2020-01-29] VITALS (8 sets, daily range): BP systolic 122–146; BP diastolic 67–91; PULSE 77–102; RESP 20–24; TEMP 36.3–37.1; O2SAT 91–96
[2020-01-29] MEDS: ACETAMINOPHEN 325 MG TABLET 650 MG PO ×3 (00:38→17:25)
[2020-01-29] MEDS: REMDESIVIR 100 MG/NS 250 ML 100 MG/250 ML BAG 250 MG IVPB (00:55)
[2020-01-29 06:50] LABS: Hematocrit 42.4 % (37.0-47.0); Hemoglobin 14.4 g/dL (12.0-15.0); Mean Corpuscular Hemoglobin 30.4 pg (26-34); Mean Corpuscular Volume 89.5 fl (80-100); Mean Platelet Volume 9.5 fl (7.4-10.4); Platelet Count Result 534 k/mm3 (150-375); Red Blood Count 4.74 M/mm3 (4.2-5.4); Red Cell Distribution Width 13.7 % (11.5-14.5); White Blood Count 12.8 K/mm3 (4.5-10.0)
[2020-01-29 07:00] LABS: Magnesium 2.3 mg/dL (1.6-2.3)
[2020-01-29 07:01] LABS: Alanine Aminotransferase 30 U/L (4-35); Alkaline Phosphatase 67 U/L (38-126); Anion Gap 9 mmol/L (8-16); Aspartate Amino Transferase 48 U/L (14-36); Bilirubin,Total 0.5 mg/dL (0.2-1.3); Blood Urea Nitrogen 17 mg/dL (7-17); Calcium 9.5 mg/dL (8.4-10.2); Carbon Dioxide 33 mmol/L (22-30); Chloride 102 mmol/L (98-107); Estimated CRCL calculation 85 ml/min; Estimated Glomerular Filt Rate > 60; Glucose 105 mg/dL (65-105); Potassium 3.7 mmol/L (3.4-5.0); Sodium 144 mmol/L (137-145)
[2020-01-29] MEDS: ASPIRIN 81 MG ENTERIC TABLET PO (08:12)
[2020-01-29] MEDS: ENOXAPARIN 40 MG/0.4 ML SYRINGE SUB-Q ×2 (08:12→21:16)
[2020-01-29] MEDS: DEXAMETHASONE 2 MG TABLET 6 MG PO (08:12)
[2020-01-29] MEDS: hydroCHLOROthiazide 25 MG TABLET PO (08:13)
[2020-01-29] MEDS: OLMESARTAN MEDOXOMIL 20 MG TABLET 40 MG PO (08:13)
[2020-01-29] MEDS: guaiFENesin 12 HR 600 MG TABCR 1200 MG PO ×2 (08:13→21:16)
[2020-01-29] MEDS: PANTOPRAZOLE 40 MG TABLET PO (08:14)
[2020-01-29] MEDS: ALBUTEROL SULFATE (*SP) AEROSOL 1 PUFF 2 PUFF INHALATION ×4 (09:51→20:53)
--- NOTE | 2020-01-29 14:06 | PM.IMPN ---
Progress Note: A&P Assessment and Plan (1) Acute respiratory failure due to COVID-19: Code(s): U07.1 - COVID-19; J96.00 - Acute respiratory failure, unspecified whether with hypoxia or hypercapnia Status: Acute Assessment and Plan: Likely secondary to COVID PNA. Patient on 4L O2 NC again today. Overall, feeling about the same as yesterday with minimal clinical improvements Continue oxygen supplementation and wean off when possible. Continuous pulse oximetry. Continue treatment for COVID pneumonia as below. Continue bronchodilators. RT assess and treat. (2) Pneumonia due to COVID-19 virus: Code(s): U07.1 - COVID-19; J12.89 - Other viral pneumonia Status: Acute Assessment and Plan: COVID testing positive. Bacterial coinfection less likely and IV antibiotics initiated from the ED were discontinued. BCx shows NGTD x 2; sputum culture awaiting to be collected Remdesivier initiated on 01/27 (day 2/5) Dexamethasone initiated on 01/25 (day 4/10) Continue oxygen supplementation as well as bronchodilators and steroid therapy. RT assess and treat. Advised patient to prone when tolerated Continue supportive care with PRN tylenol for fevers, PRN mucinex for cough, prn albuterol for SOB Lovenox BID for DVT ppx (3) Sepsis: Qualifiers: Sepsis type: sepsis due to unspecified organism Sepsis acute organ dysfunction status: with acute organ dysfunction Severe sepsis acute organ dysfunction type: acute respiratory failure Acute respiratory failure type: with hypoxia Severe sepsis shock status: without septic shock Qualified Code(s): A41.9 - Sepsis, unspecified organism; R65.20 - Severe sepsis without septic shock; J96.01 - Acute respiratory failure with hypoxia Code(s): A41.9 - Sepsis, unspecified organism Status: Acute Assessment and Plan: Source of sepsis appears to be pulmonary; fever, tachycardia - both improving since admission. BCx shows NGTD x 2. Monitor acid-base status. Monitor urine output and vital signs closely. Encouraged PO intake Treat COVID PNA as detailed above (4) Hypertension: Qualifiers: Hypertension type: unspecified Qualified Code(s): I10 - Essential (primary) hypertension Code(s): I10 - Essential (primary) hypertension Status: Chronic Assessment and Plan: BP 130s sys most recently monitor blood pressure. Continue home antihypertensives Subjective Date/time seen: 01/29/20 14:06 Interval history: Patient is a 59 yo F with known history of chronic hypertension who is seen in follow up for COVID pneumonia and acute respiratory failure with hypoxia likely due to same. Patient states she feels okay today; states she had a rough night last night. Notes desatting when she ambulated to the bathroom, thus requested a bedside commode. No current SOB. She thinks cough has improved. Sputum production that is non-bloody. Headache still present, but improved. No other complaints at the moment. Denies current cp/palpitations, n/v/d/c, abd pain, changes in BMs, dysuria, calf pain/swelling. Review of Systems Review of Systems: All systems reviewed & are unremarkable except as noted in HPI and below Exam Narrative: Exam Narrative: General: Patient lying prone in bed at time of visit; acutely ill appearing HEENT: Normocephalic, EOMI, oral mucosa moist. Cardiovascular: Rate and rhythm are regular. No notable murmur, rub, or gallop. Respiratory: Coarse breath sounds, particularly on right lung mathews. Speaks in short sentences. Non-labored breathing. On 4L O2 NC Abdomen: Soft, non-tender, bowel sounds present. Extremities: Peripheral pulses intact. No edema. NTTP b/l calves Neuro: No focal neurological deficits. Speech is clear. Objective Data Vit
[2020-01-29] MEDS: ALBUTEROL SULFATE (*SP) INHALER 1 PUFF (20:49)
[2020-01-30] VITALS (11 sets, daily range): BP systolic 116–144; BP diastolic 68–92; PULSE 71–91; RESP 18–20; TEMP 36.2–37.2; O2SAT 92–96
[2020-01-30] MEDS: REMDESIVIR 100 MG/NS 250 ML 100 MG/250 ML BAG 250 MG IVPB (01:13)
[2020-01-30 06:43] LABS: Hematocrit 41.1 % (37.0-47.0); Hemoglobin 14.1 g/dL (12.0-15.0); Mean Corpuscular HGB Conc 34.3 g/dl (32-36); Mean Corpuscular Hemoglobin 30.3 pg (26-34); Mean Corpuscular Volume 88.4 fl (80-100); Mean Platelet Volume 9.3 fl (7.4-10.4); Platelet Count Result 617 k/mm3 (150-375); Red Blood Count 4.65 M/mm3 (4.2-5.4); Red Cell Distribution Width 13.7 % (11.5-14.5); White Blood Count 9.3 K/mm3 (4.5-10.0)
[2020-01-30 07:03] LABS: Potassium 3.4 mmol/L (3.4-5.0)
[2020-01-30 07:07] LABS: Alanine Aminotransferase 27 U/L (4-35); Albumin Level 3.8 g/dL (3.5-5.1); Alkaline Phosphatase 65 U/L (38-126); Anion Gap 8 mmol/L (8-16); Aspartate Amino Transferase 39 U/L (14-36); Bilirubin,Total 0.6 mg/dL (0.2-1.3); Blood Urea Nitrogen 19 mg/dL (7-17); Calcium 9.4 mg/dL (8.4-10.2); Carbon Dioxide 31 mmol/L (22-30); Chloride 102 mmol/L (98-107); Estimated CRCL calculation 98 ml/min; Estimated Glomerular Filt Rate > 60; Glucose 101 mg/dL (65-105); Lactate Dehydrogenase 931 U/L (313-618); Magnesium 2.2 mg/dL (1.6-2.3); Sodium 141 mmol/L (137-145)
[2020-01-30] MEDS: PANTOPRAZOLE 40 MG TABLET PO (08:02)
[2020-01-30] MEDS: guaiFENesin 12 HR 600 MG TABCR 1200 MG PO ×2 (08:02→21:54)
[2020-01-30] MEDS: hydroCHLOROthiazide 25 MG TABLET PO (08:03)
[2020-01-30] MEDS: ENOXAPARIN 40 MG/0.4 ML SYRINGE SUB-Q ×2 (08:03→21:55)
[2020-01-30] MEDS: DEXAMETHASONE 2 MG TABLET 6 MG PO (08:03)
[2020-01-30] MEDS: OLMESARTAN MEDOXOMIL 20 MG TABLET 40 MG PO (08:03)
[2020-01-30] MEDS: ASPIRIN 81 MG ENTERIC TABLET PO (08:03)
[2020-01-30] MEDS: ACETAMINOPHEN 325 MG TABLET 650 MG PO ×4 (08:11→21:54)
[2020-01-30] MEDS: ALBUTEROL SULFATE (*SP) AEROSOL 1 PUFF 2 PUFF INHALATION ×4 (09:17→21:02)
--- NOTE | 2020-01-30 12:39 | PM.IMPN ---
Progress Note: A&P Assessment and Plan (1) Acute respiratory failure due to COVID-19: Code(s): U07.1 - COVID-19; J96.00 - Acute respiratory failure, unspecified whether with hypoxia or hypercapnia Status: Acute Assessment and Plan: Likely secondary to COVID PNA. Patient on 4L O2 NC again today. Overall, feeling better; clinically improved although still requiring 4L NC as noted Continue oxygen supplementation and wean off when possible. Continuous pulse oximetry. Continue treatment for COVID pneumonia as below. Continue bronchodilators. RT assess and treat. (2) Pneumonia due to COVID-19 virus: Code(s): U07.1 - COVID-19; J12.89 - Other viral pneumonia Status: Acute Assessment and Plan: COVID testing positive. Bacterial coinfection less likely and IV antibiotics initiated from the ED were discontinued. BCx shows NGTD x 2; sputum culture pending Remdesivier initiated on 01/27 (day 3/5) Dexamethasone initiated on 01/25 (day 5/10) Continue oxygen supplementation as well as bronchodilators and steroid therapy. RT assess and treat. Advised patient to prone when tolerated Continue supportive care with PRN tylenol for fevers, PRN mucinex for cough, prn albuterol for SOB Lovenox BID for DVT ppx (3) Sepsis: Qualifiers: Sepsis type: sepsis due to unspecified organism Sepsis acute organ dysfunction status: with acute organ dysfunction Severe sepsis acute organ dysfunction type: acute respiratory failure Acute respiratory failure type: with hypoxia Severe sepsis shock status: without septic shock Qualified Code(s): A41.9 - Sepsis, unspecified organism; R65.20 - Severe sepsis without septic shock; J96.01 - Acute respiratory failure with hypoxia Code(s): A41.9 - Sepsis, unspecified organism Status: Acute Assessment and Plan: Source of sepsis appears to be pulmonary; fever, tachycardia - both improving since admission. BCx shows NGTD x 2. Monitor acid-base status. Monitor urine output and vital signs closely. Encouraged PO intake Treat COVID PNA as detailed above (4) Hypertension: Qualifiers: Hypertension type: unspecified Qualified Code(s): I10 - Essential (primary) hypertension Code(s): I10 - Essential (primary) hypertension Status: Chronic Assessment and Plan: BP 120s sys most recently monitor blood pressure. Continue home antihypertensives Subjective Date/time seen: 01/30/20 12:39 Interval history: Patient is a 59 yo F with known history of chronic hypertension who is seen in follow up for COVID pneumonia and acute respiratory failure with hypoxia likely due to same. Patient states she feels better today. Less SOB, able to move around the room with less breathing issues. She notes some streaks of blood when blowing her nose and occasionally when coughing, but no large amounts of blood/clotting noted. Cough overall improved. Headache improved. No other complaints at the moment. Denies current cp/palpitations, n/v/d/c, abd pain, changes in BMs, dysuria, calf pain/swelling. Review of Systems Review of Systems: All systems reviewed & are unremarkable except as noted in HPI and below Exam Narrative: Exam Narrative: General: Patient sitting upright in chair at time of visit HEENT: Normocephalic, EOMI, oral mucosa moist. Cardiovascular: Rate and rhythm are regular. No notable murmur, rub, or gallop. Respiratory: Coarse breath sounds diffusely. Speaks in full sentences. Non-labored breathing. On 4L O2 NC Abdomen: Soft, non-tender, bowel sounds present. Extremities: Peripheral pulses intact. No edema. NTTP b/l calves Neuro: No focal neurological deficits. Speech is clear. Objective Data Vital Signs Vital Signs: Last Vital Signs Temp 98.8 F 1
[2020-01-31] VITALS (10 sets, daily range): BP systolic 111–144; BP diastolic 59–81; PULSE 74–104; RESP 18–24; TEMP 36.3–36.7; O2SAT 92–98
[2020-01-31] MEDS: REMDESIVIR 100 MG/NS 250 ML 100 MG/250 ML BAG 250 MG IVPB (00:05)
[2020-01-31] MEDS: ACETAMINOPHEN 325 MG TABLET 650 MG PO ×5 (01:10→21:22)
[2020-01-31 06:36] LABS: Hematocrit 44.1 % (37.0-47.0); Hemoglobin 14.9 g/dL (12.0-15.0); Mean Corpuscular HGB Conc 33.8 g/dl (32-36); Mean Corpuscular Hemoglobin 30.2 pg (26-34); Mean Corpuscular Volume 89.3 fl (80-100); Mean Platelet Volume 9.1 fl (7.4-10.4); Platelet Count Result 730 k/mm3 (150-375); Red Blood Count 4.94 M/mm3 (4.2-5.4); Red Cell Distribution Width 13.4 % (11.5-14.5)
[2020-01-31 06:44] LABS: Alanine Aminotransferase 32 U/L (4-35); Albumin Level 3.9 g/dL (3.5-5.1); Alkaline Phosphatase 69 U/L (38-126); Anion Gap 7 mmol/L (8-16); Aspartate Amino Transferase 46 U/L (14-36); Bilirubin,Total 0.7 mg/dL (0.2-1.3); Blood Urea Nitrogen 24 mg/dL (7-17); Calcium 9.6 mg/dL (8.4-10.2); Carbon Dioxide 33 mmol/L (22-30); Chloride 103 mmol/L (98-107); Estimated CRCL calculation 75 ml/min; Estimated Glomerular Filt Rate > 60; Glucose 96 mg/dL (65-105); Magnesium 2.4 mg/dL (1.6-2.3); Potassium 3.6 mmol/L (3.4-5.0); Sodium 143 mmol/L (137-145)
[2020-01-31] MEDS: ALBUTEROL SULFATE (*SP) AEROSOL 1 PUFF 2 PUFF INHALATION ×4 (08:00→20:15)
[2020-01-31] MEDS: guaiFENesin 12 HR 600 MG TABCR 1200 MG PO ×2 (08:39→21:21)
[2020-01-31] MEDS: ASPIRIN 81 MG ENTERIC TABLET PO (08:39)
[2020-01-31] MEDS: OLMESARTAN MEDOXOMIL 20 MG TABLET 40 MG PO (08:39)
[2020-01-31] MEDS: DEXAMETHASONE 2 MG TABLET 6 MG PO (08:39)
[2020-01-31] MEDS: PANTOPRAZOLE 40 MG TABLET PO (08:40)
[2020-01-31] MEDS: hydroCHLOROthiazide 25 MG TABLET PO (08:40)
--- NOTE | 2020-01-31 14:07 | PM.IMPN ---
Progress Note: A&P Assessment and Plan (1) Acute respiratory failure due to COVID-19: Code(s): U07.1 - COVID-19; J96.00 - Acute respiratory failure, unspecified whether with hypoxia or hypercapnia Status: Acute Assessment and Plan: Likely secondary to COVID PNA. Patient on 1L O2 NC this afternoon. Overall, feeling better; clinically improved Continue oxygen supplementation and wean off when possible. Continuous pulse oximetry. Continue treatment for COVID pneumonia as below. Continue bronchodilators. RT assess and treat. (2) Pneumonia due to COVID-19 virus: Code(s): U07.1 - COVID-19; J12.89 - Other viral pneumonia Status: Acute Assessment and Plan: COVID testing positive. Bacterial coinfection less likely and IV antibiotics initiated from the ED were discontinued. BCx shows NGTD x 2; sputum culture not performed as inadequate specimen collected Remdesivir initiated on 01/27 (day 4/5) Dexamethasone initiated on 01/25 (day 6/10) Continue oxygen supplementation as well as bronchodilators and steroid therapy. RT assess and treat. Advised patient to prone when tolerated Continue supportive care with PRN tylenol for fevers, PRN mucinex for cough, prn albuterol for SOB Lovenox BID for DVT ppx Will likely plan on Home O2 eval prior to discharge (3) Sepsis: Qualifiers: Sepsis type: sepsis due to unspecified organism Sepsis acute organ dysfunction status: with acute organ dysfunction Severe sepsis acute organ dysfunction type: acute respiratory failure Acute respiratory failure type: with hypoxia Severe sepsis shock status: without septic shock Qualified Code(s): A41.9 - Sepsis, unspecified organism; R65.20 - Severe sepsis without septic shock; J96.01 - Acute respiratory failure with hypoxia Code(s): A41.9 - Sepsis, unspecified organism Status: Acute Assessment and Plan: Source of sepsis appears to be pulmonary; fever, tachycardia - both improving since admission. BCx shows NGTD x 2. Monitor acid-base status. Monitor urine output and vital signs closely. Encouraged PO intake Treat COVID PNA as detailed above (4) Hypertension: Qualifiers: Hypertension type: unspecified Qualified Code(s): I10 - Essential (primary) hypertension Code(s): I10 - Essential (primary) hypertension Status: Chronic Assessment and Plan: BP 110s sys most recently monitor blood pressure. Continue home antihypertensives Subjective Date/time seen: 01/31/20 14:07 Interval history: Patient is a 59 yo F with known history of chronic hypertension who is seen in follow up for COVID pneumonia and acute respiratory failure with hypoxia likely due to same. Patient states she feels better again today. Less SOB, able to move around the room with less breathing issues. She is noting coughing up more mucus/sputum. Headache worse today. No other complaints at the moment. Denies current cp/palpitations, n/v/d/c, abd pain, changes in BMs, dysuria, calf pain/swelling. Review of Systems Review of Systems: All systems reviewed & are unremarkable except as noted in HPI and below Exam Narrative: Exam Narrative: General: Patient sitting upright in bed at time of visit. Nursing in room HEENT: Normocephalic, EOMI, oral mucosa moist. Cardiovascular: Rate and rhythm are regular. No notable murmur, rub, or gallop. Respiratory: Coarse breath sounds diffusely. Speaks in full sentences. Non-labored breathing. On 1L O2 NC Abdomen: Soft, non-tender, bowel sounds present. Extremities: Peripheral pulses intact. No edema. NTTP b/l calves Neuro: No focal neurological deficits. Speech is clear. Objective Data Vital Signs Vital Signs: Last Vital Signs Temp 97.5 F L 01/31/20 12:00 Pulse 100 11/2
--- NOTE | 2020-01-31 16:53 | PC.NURSE ---
I have educated the patient about weening her off oxygen. The patient has a vitals machine at bedside, I have educated her on the pulse ox levels I am comfortable with her going on while being on room air. The patient states that she is nervous to be without oxygen I have educated the patient on the importance of not using oxygen when she does not require it.
[2020-02-01] VITALS (7 sets, daily range): BP systolic 98–128; BP diastolic 50–66; PULSE 68–85; RESP 16–20; TEMP 36.4–37.1; O2SAT 92–95
[2020-02-01] MEDS: REMDESIVIR 100 MG/NS 250 ML 100 MG/250 ML BAG 250 MG IVPB (00:18)
[2020-02-01] MEDS: ONDANSETRON INJ 4 MG/2 ML VIAL IV PUSH ×3 (00:18→09:21)
--- NOTE | 2020-02-01 02:42 | PC.NURSE ---
AT 2230 VIANE[facility] SEARCH CONSULTANT IN TO SPEAK WITH PT. PT HAS BEEN ADAMANT TO KEEPING THE DOOR CRACKED OPEN DUE TO CLAUSTROPHOBIA. NOW VERY PLEASANT AND AGREEABLE TO KEEP THE DOOR SHUT PER POLICY FOR DROPLET PRECAUTIONS.
[2020-02-01 06:36] LABS: Hematocrit 42.1 % (37.0-47.0); Hemoglobin 14.3 g/dL (12.0-15.0); Mean Corpuscular Hemoglobin 30.2 pg (26-34); Mean Platelet Volume 8.9 fl (7.4-10.4); Platelet Count Result 810 k/mm3 (150-375); Red Blood Count 4.73 M/mm3 (4.2-5.4); Red Cell Distribution Width 13.4 % (11.5-14.5); White Blood Count 14.3 K/mm3 (4.5-10.0)
[2020-02-01 07:00] LABS: CRP 2.7 mg/dL (<1.0); Lactate Dehydrogenase 825 U/L (313-618); Magnesium 2.3 mg/dL (1.6-2.3)
[2020-02-01 07:01] LABS: Alanine Aminotransferase 30 U/L (4-35); Albumin Level 3.9 g/dL (3.5-5.1); Alkaline Phosphatase 67 U/L (38-126); Anion Gap 9 mmol/L (8-16); Aspartate Amino Transferase 38 U/L (14-36); Bilirubin,Total 0.7 mg/dL (0.2-1.3); Blood Urea Nitrogen 27 mg/dL (7-17); Calcium 9.6 mg/dL (8.4-10.2); Carbon Dioxide 32 mmol/L (22-30); Chloride 102 mmol/L (98-107); Estimated CRCL calculation 75 ml/min; Estimated Glomerular Filt Rate > 60; Glucose 94 mg/dL (65-105); Potassium 3.2 mmol/L (3.4-5.0); Sodium 143 mmol/L (137-145)
[2020-02-01] MEDS: DEXAMETHASONE 2 MG TABLET 6 MG PO (09:17)
[2020-02-01] MEDS: POTASSIUM CHLORIDE 20 MEQ PACKET (FOR LIQUID) 60 MEQ PO (09:17)
[2020-02-01] MEDS: guaiFENesin 12 HR 600 MG TABCR 1200 MG PO ×2 (09:17→21:49)
[2020-02-01] MEDS: ASPIRIN 81 MG ENTERIC TABLET PO (09:17)
[2020-02-01] MEDS: hydroCHLOROthiazide 25 MG TABLET PO (09:18)
[2020-02-01] MEDS: PANTOPRAZOLE 40 MG TABLET PO (09:18)
[2020-02-01] MEDS: OLMESARTAN MEDOXOMIL 20 MG TABLET 40 MG PO (09:18)
[2020-02-01] MEDS: ACETAMINOPHEN 325 MG TABLET 650 MG PO ×3 (09:35→21:49)
[2020-02-01] MEDS: ALBUTEROL SULFATE (*SP) AEROSOL 1 PUFF 2 PUFF INHALATION ×3 (11:25→21:25)
--- NOTE | 2020-02-01 11:51 | PM.IMPN ---
Progress Note: A&P Assessment and Plan (1) Acute respiratory failure due to COVID-19: Code(s): U07.1 - COVID-19; J96.00 - Acute respiratory failure, unspecified whether with hypoxia or hypercapnia Status: Acute Assessment and Plan: Likely secondary to COVID PNA. Patient on RA today. Overall, feeling better; clinically improved O2 PRN Continue treatment for COVID pneumonia as below. Continue bronchodilators. RT assess and treat. (2) Pneumonia due to COVID-19 virus: Code(s): U07.1 - COVID-19; J12.89 - Other viral pneumonia Status: Acute Assessment and Plan: COVID testing positive. Bacterial coinfection less likely and IV antibiotics initiated from the ED were discontinued. BCx shows NGTD x 2; sputum culture not performed as inadequate specimen collected Remdesivir initiated on 01/27 (day 5) Dexamethasone initiated on 01/25 (day 7) Continue oxygen supplementation PRN as well as bronchodilators and steroid therapy. RT assess and treat. Advised patient to prone when tolerated Continue supportive care with PRN tylenol for fevers, PRN mucinex for cough, prn albuterol for SOB. Will do one time dose Toradol for headache Lovenox BID for DVT ppx Will likely plan on Home O2 eval tomorrow prior to discharge (3) Sepsis: Qualifiers: Sepsis type: sepsis due to unspecified organism Sepsis acute organ dysfunction status: with acute organ dysfunction Severe sepsis acute organ dysfunction type: acute respiratory failure Acute respiratory failure type: with hypoxia Severe sepsis shock status: without septic shock Qualified Code(s): A41.9 - Sepsis, unspecified organism; R65.20 - Severe sepsis without septic shock; J96.01 - Acute respiratory failure with hypoxia Code(s): A41.9 - Sepsis, unspecified organism Status: Acute Assessment and Plan: Source of sepsis appears to be pulmonary; fever, tachycardia - both improving since admission. BCx shows NGTD x 2. Monitor acid-base status. Monitor urine output and vital signs closely. Encouraged PO intake Treat COVID PNA as detailed above (4) Hypertension: Qualifiers: Hypertension type: unspecified Qualified Code(s): I10 - Essential (primary) hypertension Code(s): I10 - Essential (primary) hypertension Status: Chronic Assessment and Plan: BP soft at 90s sys most recently monitor blood pressure. Will Hold HCTZ Continue olmesartan Subjective Date/time seen: 02/01/20 11:51 Interval history: Patient is a 59 yo F with known history of chronic hypertension who is seen in follow up for COVID pneumonia and acute respiratory failure with hypoxia likely due to same. Patient states she feels better again today; now on room air. Still gets a bit SOB with moving around the room, but better. She notes a headache with light and noise sensitivity. She has some blood streaking in sputum, but improved. No other complaints at the moment. Denies current cp/palpitations, n/v/d/c, abd pain, changes in BMs, dysuria, calf pain/swelling. Review of Systems Review of Systems: All systems reviewed & are unremarkable except as noted in HPI and below Exam Narrative: Exam Narrative: General: Patient sitting upright in chair at time of visit. Room is dark; she keeps eyes closed for most of visit due to headache HEENT: Normocephalic, EOMI, oral mucosa moist. Cardiovascular: Rate and rhythm are regular. No notable murmur, rub, or gallop. Respiratory: Coarse breath sounds diffusely. Speaks in full sentences. Non-labored breathing. On RA Abdomen: Soft, non-tender, bowel sounds present. Extremities: Peripheral pulses intact. No edema. NTTP b/l calves Neuro: No focal neurological deficits. Speech is clear. Objective Data Vital Signs Vital Signs:
[2020-02-01] MEDS: KETOROLAC 15 MG/ML VIAL (*BKC) IV PUSH (12:20)
--- NOTE | 2020-02-01 12:30 | PC.NURSE ---
Patient complains of severe headache 10/10 with photophobia. Patient medicated as ordered. See MAR. Patient's bed moved to opposite side of room so that the curtain can be pulled to help with the amount of light coming in. Patient denies any other needs at this time.
[2020-02-02] VITALS: BP 113/66; PULSE 77; RESP 18; TEMP 36.2; O2SAT 97
[2020-02-02 04:00] VITALS: BP 105/56; PULSE 72; RESP 18; TEMP 36.2; O2SAT 95
[2020-02-02 07:19] LABS: Hematocrit 39.3 % (37.0-47.0); Hemoglobin 13.4 g/dL (12.0-15.0); Mean Corpuscular HGB Conc 34.1 g/dl (32-36); Mean Platelet Volume 8.9 fl (7.4-10.4); Platelet Count Result 822 k/mm3 (150-375); Red Blood Count 4.32 M/mm3 (4.2-5.4); Red Cell Distribution Width 13.5 % (11.5-14.5); White Blood Count 11.5 K/mm3 (4.5-10.0)
[2020-02-02 07:42] LABS: Alanine Aminotransferase 30 U/L (4-35); Albumin Level 3.8 g/dL (3.5-5.1); Alkaline Phosphatase 58 U/L (38-126); Anion Gap 7 mmol/L (8-16); Aspartate Amino Transferase 38 U/L (14-36); Bilirubin,Total 0.9 mg/dL (0.2-1.3); Blood Urea Nitrogen 28 mg/dL (7-17); CRP 2.6 mg/dL (<1.0); Calcium 9.5 mg/dL (8.4-10.2); Carbon Dioxide 33 mmol/L (22-30); Chloride 104 mmol/L (98-107); Estimated CRCL calculation 75 ml/min; Estimated Glomerular Filt Rate > 60; Glucose 91 mg/dL (65-105); Lactate Dehydrogenase 685 U/L (313-618); Magnesium 2.5 mg/dL (1.6-2.3); Potassium 3.9 mmol/L (3.4-5.0); Sodium 144 mmol/L (137-145)
[2020-02-02 07:44] LABS: Atypical Lymphocytes Present; Band Neutrophils Percent 1 % (0-6); Eosinophils Absolute Manual 0.11 K/mm3 (0.02-0.5); Eosinophils Percent Manual 1 % (0-4); Lymphocytes Absolute Manual 6.21 K/mm3 (1.1-4.5); Monocytes Absolute Manual 1.03 K/mm3 (0.1-0.90); Monocytes Percent Manual 9 % (3-9); Neutrophils Absolute Manual 4.14 K/mm3 (1.7-7.2); Neutrophils Percent Manual 35 % (46-73); Platelet Estimate Increased (Adequate); Total Cells Counted 100
[2020-02-02 08:00] VITALS: BP 117/67; PULSE 86; RESP 20; TEMP 36.4; O2SAT 100
[2020-02-02 09:05] VITALS: PULSE 101; O2SAT 94
[2020-02-02] MEDS: DEXAMETHASONE 2 MG TABLET 6 MG PO (09:23)
[2020-02-02] MEDS: PANTOPRAZOLE 40 MG TABLET PO (09:25)
[2020-02-02] MEDS: OLMESARTAN MEDOXOMIL 20 MG TABLET 40 MG PO (09:25)
[2020-02-02] MEDS: guaiFENesin 12 HR 600 MG TABCR 1200 MG PO (09:25)
[2020-02-02] MEDS: ONDANSETRON INJ 4 MG/2 ML VIAL IV PUSH (09:26)
[2020-02-02] MEDS: ACETAMINOPHEN 325 MG TABLET 650 MG PO (09:26)
--- NOTE | 2020-02-02 09:54 | PM.DS ---
DS: Admitting Diagnosis Admitting Diagnosis Admitting Diagnosis: covid pneumonia DS: Discharge Diagnosis Discharge Diagnosis (1) Acute respiratory failure due to COVID-19: Code(s): U07.1 - COVID-19; J96.00 - Acute respiratory failure, unspecified whether with hypoxia or hypercapnia Status: Acute Assessment and Plan: Likely secondary to COVID PNA. Patient on RA again today; Nursing reports home O2 eval performed today and does not require O2 at rest or with ambulation. Overall, feeling better; clinically improved Continue supportive treatment for COVID pneumonia as below. F/u with PCP (2) Pneumonia due to COVID-19 virus: Code(s): U07.1 - COVID-19; J12.89 - Other viral pneumonia Status: Acute Assessment and Plan: COVID testing positive. Bacterial coinfection less likely and IV antibiotics initiated from the ED were discontinued. BCx shows NGTD x 2; sputum culture not performed as inadequate specimen collected Remdesivir initiated on 01/27. Completed on 01/31 Dexamethasone initiated on 01/25 (day 810) Home O2 eval performed and per nursing, patient does not require oxygen at rest or with activity Continue supportive care with PRN tylenol for fevers, PRN mucinex for cough, prn albuterol for SOB. Will do one time dose Toradol for headache prior to discharge Lovenox BID for DVT ppx during stay, although patient refused last several doses for reasons unclear D/c home today; continue isolation at home. F/u with PCP (3) Sepsis: Qualifiers: Acute respiratory failure type: with hypoxia Sepsis acute organ dysfunction status: with acute organ dysfunction Sepsis type: sepsis due to unspecified organism Severe sepsis acute organ dysfunction type: acute respiratory failure Severe sepsis shock status: without septic shock Qualified Code(s): A41.9 - Sepsis, unspecified organism; R65.20 - Severe sepsis without septic shock; J96.01 - Acute respiratory failure with hypoxia Code(s): A41.9 - Sepsis, unspecified organism Status: Acute Assessment and Plan: Source of sepsis appears to be pulmonary; fever, tachycardia - both improving since admission. BCx shows NGTD x 2. Encouraged PO intake Treat COVID PNA as detailed above (4) Hypertension: Qualifiers: Hypertension type: unspecified Qualified Code(s): I10 - Essential (primary) hypertension Code(s): I10 - Essential (primary) hypertension Status: Chronic Assessment and Plan: BP soft at 110 sys most recently monitor blood pressure. Will Hold HCTZ; resume after discharge Continue olmesartan DS: Summary Hospital Course Reason for hospitalization: COVID pneumonia; acute respiratory failure with hypoxia Hospital Course: Date of arrival: 01/26/20 Date of discharge: 02/02/20 Patient is a 59 yo F with history of chronic hypertension who presented to the hospital on 01/25 with a chief complaint of increased shortness of breath and pleuritic upper chest discomfort. Patient had several known COVID positive contacts. While in the ED, she was found to have acute respiratory failure with hypoxia and placed on supplemental oxygen. CXR suggestive of pneumonia. She was swabbed for COVID virus in ED (positive). She was initially started on antibiotics for empiric treatment of possible bacterial pneumonia pending the COVID results. She was started on steroid therapy and bronchodilators in the ED. Patient admitted under this setting. Please see H&P for further details. Patient was admitted to the hospitalist service for further management/treatment. After COVID testing returned positive, she was started on Remdesivir therapy (5 days total) and continued on decadron therapy (8 days total). She her supplemental O2 requirements peaked at 4L O2 but was weaned down
[2020-02-02] MEDS: KETOROLAC 15 MG/ML VIAL (*BKC) IV PUSH (10:50)
[2020-02-02 11:21] VITALS: PULSE 110; PULSE 111; O2SAT 94; O2SAT 95
--- NOTE | 2020-02-02 11:22 | HOMEO2EVAL ---
Home Oxygen Evaluation RC: Home Oxygen (O2) Evaluation Start: 02/02/20 09:00 Freq: ONCE Status: Active Protocol: RPE Activity Type Activity Date Activity User E-Sign Co-Sign Detail Recorded Client Recorded Date Recorded By Document 02/02/20 09:05 CLC RT_004 02/02/20 11:22 CLC Document 02/02/20 11:21 CLC RT_004 02/02/20 11:22 CLC Document 02/02/20 11:21 CLC RT_004 02/02/20 11:22 CLC 02/02/20 02/02/20 02/02/20 09:05 11:21 11:21 Home O2 Evaluation Test Phase Resting Exercise Resting Oxygen Delivery Room Air Room Air Room Air Pulse Oximetry (90-100 %) 94 95 94 Pulse Rate (60-100 beats/min) 101 H 110 H 111 H Activity Tolerance Good Rating of Perceived Dyspnea (PD) +2 Mild, Some Difficulty, Noticeable to the Observer Ambulation Distance (feet) 50 Treatment Charges O2 Evaluation
--- NOTE | 2020-02-02 11:22 | PCRCNOTE ---
Home O2 evaluation complete. Patient does not require O2, RN notified.
== END 2020-02-02 11:50 | disposition home or self-care (01) | DRG 871 ==
LOC: ANHED 21:28 → ANH3MEDSUR 01-27 01:41
PROVIDERS: Emergency Medicine; Nurse Practitioner; Admitting Provider Family Medicine; Emergency Provider General Practice; PCP Nurse Practitioner; Visit Provider Physician Assistant
DX: A41.89 Other specified sepsis (principal); J96.01 Acute respiratory failure with hypoxia; U07.1 COVID-19; J12.89 Other viral pneumonia; R65.20 Severe sepsis without septic shock; I10 Essential (primary) hypertension; M17.0 Bilateral primary osteoarthritis of knee; Z79.899 Other long term (current) drug therapy
CPT/HCPCS: 36415; 36600; 71045; 80048; 80053; 80076; 81001; 82375; 82728; 82805; 83050; 83605; 83615; 83735; 84484; 85025; 85027; 85610; 85730; 86140; 87040; 87070; 87205; 87635; 87804; 93005; 94618; 94640; 96365; 96375; 99285; A9270; C9803; J0131; J0456; J0696; J1100; J1650; J1885; J2405; J7030; J8540; U0003

== ENCOUNTER 2020-02-25 16:17 | Outpatient (CLI) | payer OTHER, SELFPAY ==
--- NOTE | ~2020-02-25 | CT_ITS ---
EXAMINATION: CT brain wo con EXAM DATE: 02/25/2020 16:36 INDICATION: R51.9 - Headache, unspecified . TECHNIQUE: Spiral CT of the head was performed without contrast. Axial, coronal and sagittal images were reviewed. The dose-length product (DLP) for this examination was 605.33 mGy-cm. The exposure w as tailored according to patient size, and iterative reconstruction (ASIR) was used as additional dos e reduction technique. There is no prior study for comparison. FINDINGS: There is no acute intraparenchymal hemorrhage. No evidence of intraparenchymal brain mass lesion. No evidence of acute infarction. Mild cerebral atrophy. There is no mass effect or midline s hift. The ventricles are normal in size. There are no extra-axial collections. There are no acute calvarial fractures. The orbits are unremarkable. Soft tissue is unremarkable. The visualized sinus es and mastoid air cells are well aerated. IMPRESSION: 1. Unremarkable head CT examination. Reviewed, dictated and finalized at location A. ERY INSTALLER
== END 2020-02-25 16:18 | disposition home or self-care (01) ==
PROVIDERS: PCP Nurse Practitioner; Visit Provider Nurse Practitioner
DX: R51.9 Headache, unspecified (principal)
CPT/HCPCS: 70450

== ENCOUNTER 2020-04-13 16:44 | Outpatient (CLI) | payer OTHER, SELFPAY ==
--- NOTE | ~2020-04-13 | XR_ITS ---
XR hip BI 2V w AP pelvis 04/13/2020 17:11 Indication: Bilateral hip pain worse on the left Procedure: AP view of the pelvis and 2 views each hip Comparison: 10/20/2015 Findings: There is osteoarthritis of the hips, left greater than right. There are prominent collar-li ke osteophytes of the left femoral neck. No significant loss of joint space since prior examination. Pelvic rings are intact. There is sacralization of the lower lumbar spine. Stable pelvic phleboliths. No acute fracture or traumatic malalignment. Impression: 1: Stable bilateral osteoarthritis of the hips, left greater than right. Reviewed, dictated and finalized at location A. KNITTER Impression: 1: Stable bilateral osteoarthritis of the hips, left greater than right.
== END 2020-04-13 16:45 | disposition home or self-care (01) ==
PROVIDERS: PCP Nurse Practitioner; Visit Provider Orthopaedic Surgery
DX: M16.0 Bilateral primary osteoarthritis of hip (principal)
CPT/HCPCS: 73521

== ENCOUNTER 2020-08-14 13:10 | Outpatient (RCR) | payer OTHER, SELFPAY ==
[2020-08-12 12:20] LABS: Anion Gap 8 mmol/L (8-16); Blood Urea Nitrogen 17 mg/dL (7-17); Carbon Dioxide 32 mmol/L (22-30); Chloride 104 mmol/L (98-107); Cholesterol 224 mg/dL (0-200); Estimated Glomerular Filt Rate > 60; Glucose 90 mg/dL (65-105); HDL Direct 57 mg/dL; Potassium 3.7 mmol/L (3.4-5.0); Sodium 144 mmol/L (137-145); Triglycerides 151 mg/dL (<150)
[2020-08-12 12:31] LABS: LDL Cholesterol Direct 98 mg/dL
[2020-08-13 20:44] LABS: Basophils Absolute Auto 0.1 K/mm3 (0.0-0.1); Basophils Percent Auto 0.8 % (0.2-1.2); Eosinophils Absolute Auto 0.4 K/mm3 (0-0.3); Eosinophils Percent Auto 4.4 % (0-4.4); Hematocrit 47.3 % (37.0-47.0); Hemoglobin 14.7 g/dL (12.0-15.0); Immature Granulocyte Absolute 0.04 K/mm3 (0.00-0.031); Immature Granulocyte Percent A 0.4 % (0-0.5); Lymphocytes Absolute Auto 3.93 K/mm3 (0.9-3.2); Lymphocytes Percent Auto 40.8 % (18.3-44.2); Mean Corpuscular HGB Conc 31.1 g/dl (32-36); Mean Corpuscular Hemoglobin 30.5 pg (26-34); Mean Corpuscular Volume 98.1 fl (80-100); Mean Platelet Volume 9.9 fl (7.4-10.4); Monocytes Absolute Auto 0.8 K/mm3 (0.1-0.6); Monocytes Percent Auto 8.7 % (2.6-8.5); Neutrophils Absolute Auto 4.3 K/mm3 (1.3-6.7); Neutrophils Percent Auto 44.9 % (45.5-73.1); Platelet Count Result 576 k/mm3 (150-375); Red Blood Count 4.82 M/mm3 (4.2-5.4); Red Cell Distribution Width 14.6 % (11.5-14.5); White Blood Count 9.6 K/mm3 (4.5-10.0)
[2020-08-13 22:08] LABS: Vitamin D 25 Hydroxy 53.4 ng/mL
== END 2020-08-14 13:11 | disposition home or self-care (01) ==
LOC: ANHLAB 13:10
PROVIDERS: PCP Nurse Practitioner; Referring Provider Nurse Practitioner; Visit Provider Internal Medicine
DX: E55.9 Vitamin D deficiency, unspecified (principal); E07.89 Other specified disorders of thyroid; Z13.220 Encounter for screening for lipoid disorders
CPT/HCPCS: 36415; 80048; 80061; 82306; 84443; 85025

== ENCOUNTER 2020-09-17 14:35 | Outpatient (CLI) | payer OTHER, SELFPAY ==
--- NOTE | ~2020-09-17 | MM_ITS ---
EXAMINATION: MM screening [place] BI w [facility] HISTORY: Screening mammogram TECHNIQUE: Craniocaudal and mediolateral oblique 3-D tomosynthesis images were obtained and synthetic 2-D images were generated. CAD analysis was submitted and interpreted. COMPARISON: 02/14/2019, 10/19/2016, 10/09/2014 BREAST PARENCHYMAL COMPOSITION: There are scattered areas of fibroglandular density. FINDINGS: There is no evidence of suspicious mass, calcification, or architectural distortion to sugg est malignancy in either breast. There has been no suspicious interval change. IMPRESSION: 1. No mammographic evidence of malignancy. 2. Recommend routine screening mammography in one year. BI-RADS Category 1: Negative Reviewed, dictated and finalized at location A.
== END 2020-09-17 14:36 | disposition home or self-care (01) ==
LOC: ANHIMG 14:40
PROVIDERS: PCP Internal Medicine; Visit Provider Nurse Practitioner
DX: Z12.31 Encounter for screening mammogram for malignant neoplasm of breast (principal)
CPT/HCPCS: 77063; 77067

== ENCOUNTER 2021-01-21 17:02 | Outpatient (CLI) | payer OTHER, SELFPAY ==
[2021-01-21 17:50] LABS: Hematocrit 42.2 % (37.0-47.0); Hemoglobin 14.6 g/dL (12.0-15.0)
[2021-01-21 18:01] LABS: Albumin Level 4.6 g/dL (3.5-5.1); Estimated Glomerular Filt Rate > 60; Glucose 94 mg/dL (65-110)
[2021-01-21 18:17] LABS: Urine Cotinine NEGATIVE
== END 2021-01-21 17:03 | disposition home or self-care (01) ==
PROVIDERS: PCP Internal Medicine; Visit Provider Orthopaedic Surgery
DX: M17.11 Unilateral primary osteoarthritis, right knee (principal); I10 Essential (primary) hypertension; R00.0 Tachycardia, unspecified
CPT/HCPCS: 80307; 82040; 82565; 82947; 83036; 85014; 85018

== ENCOUNTER 2021-01-25 13:23 | Outpatient (CLI) | payer OTHER, SELFPAY ==
--- NOTE | 2021-01-25 | ECG_ITS ---
Measurements Intervals [place] Rate: 71 P: 33 ID: 178 QRS: 35 QRSD: 78 T: 30 QT: 398 QTc: 433 Interpretive Statements SINUS RHYTHM BASELINE ARTIFACT- II, III, AVR, AVL, AVF NORMAL ECG Electronically Signed On 01-25-2021 14:46:22 TAB MACHINE OPERATOR by Berto Lake D.O.
== END 2021-01-25 13:24 | disposition home or self-care (01) ==
LOC: ANHCARD 13:26
PROVIDERS: PCP Internal Medicine; Visit Provider Orthopaedic Surgery
DX: M17.11 Unilateral primary osteoarthritis, right knee (principal); Z01.818 Encounter for other preprocedural examination
CPT/HCPCS: 93005

== ENCOUNTER 2021-02-17 11:51 | Outpatient (CLI) | payer OTHER, SELFPAY ==
[2021-02-17 12:58] LABS: Basophils Absolute Auto 0.1 K/mm3 (0.0-0.1); Basophils Percent Auto 0.8 % (0.2-1.2); Eosinophils Absolute Auto 0.5 K/mm3 (0-0.3); Hematocrit 39.9 % (37.0-47.0); Hemoglobin 14.2 g/dL (12.0-15.0); Immature Granulocyte Absolute 0.02 K/mm3 (0.00-0.031); Immature Granulocyte Percent A 0.2 % (0-0.5); Lymphocytes Absolute Auto 4.48 K/mm3 (0.9-3.2); Lymphocytes Percent Auto 48.6 % (18.3-44.2); Mean Corpuscular HGB Conc 35.6 g/dl (32-36); Mean Corpuscular Hemoglobin 31.3 pg (26-34); Mean Corpuscular Volume 87.9 fl (80-100); Mean Platelet Volume 8.8 fl (7.4-10.4); Monocytes Absolute Auto 0.8 K/mm3 (0.1-0.6); Monocytes Percent Auto 8.4 % (2.6-8.5); Neutrophils Absolute Auto 3.4 K/mm3 (1.3-6.7); Platelet Count Result 580 k/mm3 (150-375); Red Blood Count 4.54 M/mm3 (4.2-5.4); Red Cell Distribution Width 12.6 % (11.5-14.5); White Blood Count 9.2 K/mm3 (4.5-10.0)
[2021-02-17 13:20] LABS: Anion Gap 7 mmol/L (8-16); Blood Urea Nitrogen 12 mg/dL (7-17); Calcium 9.5 mg/dL (8.4-10.2); Carbon Dioxide 30 mmol/L (22-30); Chloride 102 mmol/L (98-107); Estimated Glomerular Filt Rate > 60; Glucose 92 mg/dL (65-110); Potassium 3.8 mmol/L (3.4-5.0); Sodium 139 mmol/L (137-145)
== END 2021-02-17 11:52 | disposition home or self-care (01) ==
PROVIDERS: Anesthesiology; PCP Internal Medicine; Visit Provider Orthopaedic Surgery
DX: M17.11 Unilateral primary osteoarthritis, right knee (principal); Z51.81 Encounter for therapeutic drug level monitoring; Z01.818 Encounter for other preprocedural examination
CPT/HCPCS: 36415; 80048; 85025; 87081

== ENCOUNTER 2021-03-01 08:32 | Outpatient (CLI) | payer OTHER, SELFPAY ==
--- NOTE | ~2021-03-01 | CT_ITS ---
EXAMINATION: CT LE RT wo con DATE: 03/01/2021 08:59 INDICATION: Unilateral primary osteoarthritis of the right knee TECHNIQUE: High resolution computed tomography (CT) of the right was performed without intravenous co ntrast. Additional sagittal and coronal reconstructions were performed. Automated exposure control an d iterative reconstruction technique were employed. The dose-length product was 1786.80 mGy-cm. COMPARISON: 02/17/2021 FINDINGS: Slight genu varus at the right knee which along with a moderate to severe joint space narrowing the m edial compartment evident on the prior radiographs appears underestimated on the current nonweightbea ring imaging. Alignment is otherwise normal. No fracture. Small osteophytes in all 3 compartments of the right knee. Large right knee joint effusion. Additional polyarticular osteoarthritis, mild to mod erate at the second and third tarsal metatarsal joints and mild at the right hip and multiple additio nal joints in the right foot and ankle. Prominent osteophytes and heterotopic ossicles along the dors al margin of the talonavicular joint which could be degenerative or sequela of old capsular injury. S mall Achilles and plantar calcaneal spurs. No pathologically enlarged right inguinal or right pelvic lymphadenopathy. IMPRESSION: 1. Moderate to severe medial compartment predominant tricompartmental osteoarthritis at the right kne e with large knee joint effusion. Reviewed, dictated and finalized at location . PRESS OPERATOR IMPRESSION: 1. Moderate to severe medial compartment predominant tricompartmental osteoarth ritis at the right knee with large knee joint effusion.
== END 2021-03-01 08:33 | disposition home or self-care (01) ==
PROVIDERS: PCP Internal Medicine; Visit Provider Orthopaedic Surgery
DX: M17.11 Unilateral primary osteoarthritis, right knee (principal); M25.461 Effusion, right knee
CPT/HCPCS: 73700

== ENCOUNTER 2021-05-05 08:57 | Outpatient (CLI) | payer OTHER, SELFPAY ==
[2021-05-05 09:46] LABS: Basophils Absolute Auto 0.1 K/mm3 (0.0-0.1); Basophils Percent Auto 0.9 % (0.2-1.2); Eosinophils Absolute Auto 0.5 K/mm3 (0-0.3); Eosinophils Percent Auto 5.7 % (0-4.4); Hematocrit 42.1 % (37.0-47.0); Hemoglobin 14.3 g/dL (12.0-15.0); Immature Granulocyte Absolute 0.01 K/mm3 (0.00-0.031); Immature Granulocyte Percent A 0.1 % (0-0.5); Lymphocytes Percent Auto 43.8 % (18.3-44.2); Mean Corpuscular Hemoglobin 31.5 pg (26-34); Mean Corpuscular Volume 92.7 fl (80-100); Mean Platelet Volume 9.1 fl (7.4-10.4); Monocytes Absolute Auto 0.7 K/mm3 (0.1-0.6); Monocytes Percent Auto 7.9 % (2.6-8.5); Neutrophils Absolute Auto 3.4 K/mm3 (1.3-6.7); Neutrophils Percent Auto 41.6 % (45.5-73.1); Platelet Count Result 538 k/mm3 (150-375); Red Blood Count 4.54 M/mm3 (4.2-5.4); Red Cell Distribution Width 13.1 % (11.5-14.5); White Blood Count 8.2 K/mm3 (4.5-10.0)
[2021-05-05 09:59] LABS: Anion Gap 9 mmol/L (8-16); Blood Urea Nitrogen 14 mg/dL (7-17); Calcium 9.5 mg/dL (8.4-10.2); Carbon Dioxide 29 mmol/L (22-30); Chloride 105 mmol/L (98-107); Estimated Glomerular Filt Rate > 60; Glucose 104 mg/dL (65-110); Potassium 3.8 mmol/L (3.4-5.0); Sodium 143 mmol/L (137-145)
[2021-05-05 10:02] LABS: Albumin Level 4.6 g/dL (3.5-5.1)
[2021-05-05 10:03] LABS: Urine Cotinine NEGATIVE
== END 2021-05-05 08:58 | disposition home or self-care (01) ==
LOC: ANHSURGERY 08:58
PROVIDERS: Anesthesiology; PCP Internal Medicine; Visit Provider Orthopaedic Surgery
DX: M17.11 Unilateral primary osteoarthritis, right knee (principal); I10 Essential (primary) hypertension; Z01.818 Encounter for other preprocedural examination
CPT/HCPCS: 36415; 80048; 80307; 82040; 83036; 85025; 86850; 86900; 86901; 87081

== ENCOUNTER 2021-05-17 00:22 | Day surgery (SDC) | payer OTHER, SELFPAY ==
[2021-02-17 12:13] VITALS: BP 162/91; PULSE 70; RESP 16; TEMP 36.3; O2SAT 100; BMI 31.3
--- NOTE | 2021-02-17 12:24 | PC.NURSE ---
Report to the Outpatient Waiting Room, entrance under the green pavilion located off [facility], at time __6:00AM on date __03/09/21 . OR Time: ____7:30AM____. - You and your visitor will be asked a series of questions to screen for COVID 19 for your protection. - A mask is required within the hospital. - Only one visitor is allowed at this time. Patient visitors will be guided where to wait when not with patient. Preoperative COVID Testing Requirements: No COVID Test needed if: (proof is required; if not received patient will have Rapid Test prior to entry) - Patient has received COVID Vaccine at least 14 days prior to procedure date or - Patient has positive COVID test result within last 90 days of surgery date. COVID Test needed if above criteria is not met If not COVID vaccinated a COVID test must be conducted within 72 hours of surgery and patient is asked to isolate self from time of testing until procedure. You will go to the [facility] for your COVID testing. The [facility] is located at the corner of [address] [facility]. You will only be called if COVID results are positive and your surgeon may reschedule your elective surgery date. Patients may have clear liquids (water, carbonated beverages, clear teas, apple juice) until 3 hours prior to surgery with a maximum of 20 ounces. - No food from midnight until time of surgery - Infants may have breast milk until 4 hours before surgery, infant formula 6 hours prior to surgery. - Children will be allowed to drink immediately following surgery. If applicable, please bring a bottle or sippy cup to assist with drinking. Juice, water, soda, and popsicles are readily available. For infants on formula, please bring formula the day of surgery. Pacifiers are allowed. Take the following medications with a SIP of water the morning of surgery: NONE Medications to discontinue per physician NONE Date to take last dose Please no make-up, nail sami, hairspray, perfume, deodorant, or body powder the day of surgery. No jewelry (including any body piercings) or valuables the day of surgery, leave them at home. Please take a shower or bath the night before, or the morning of, surgery with an antibacterial soap. Wear comfortable, loose fitting clothing. Children are encouraged to wear pajamas. - Jewelry must be removed prior to entering the operating room. Rings and piercings that are not removed may be cut off. - The hospital will not accept responsibility for valuables. - Please leave all valuables, including medications, at home the day of surgery. If you are going home after surgery, a licensed retail delivery driver must drive you home. - NO public transportation without another adult. - We recommend that an adult stay with you for 24 hours following discharge. - We also recommend that you do not drive, make important decision, drink alcoholic beverages, or take any drugs that were not prescribed by your health care provider for at least 24 hours after your discharge time. For Pediatric surgeries, we recommend two adults accompany the child home (only one inside the building at this time). Follow any additional instructions given to you from your surgeon. Telephone instructions given to ____PATIENT and asked if any additional questions and then verbalized understanding. Patient advised to call surgeon office or pre surgery nurse liaison [phone] if any additional questions.
--- NOTE | 2021-05-05 08:17 | PC.NURSE ---
Report to the Outpatient Waiting Room, entrance under the green pavilion located off [facility], at time _0900 on date 05/11/21 . OR Time: 1100 . - You and your visitor will be asked a series of questions to screen for COVID 19 for your protection. - A mask is required within the hospital. Preoperative COVID Testing Requirements: No COVID Test needed if: (proof is required; if not received patient will have Rapid Test prior to entry) - Patient has received COVID Vaccine at least 14 days prior to procedure date or - Patient has positive COVID test result within last 90 days of surgery date. COVID Test needed if above criteria is not met If not COVID vaccinated a COVID test must be conducted within 72 hours of surgery and patient is asked to isolate self from time of testing until procedure. You will go to the [facility] for your COVID testing. The [facility] site is located at the corner [address] [facility]. You will only be called if COVID results are positive and your surgeon may reschedule your elective surgery date. Patients may have clear liquids (water, carbonated beverages, clear teas, apple juice) until 3 hours prior to surgery with a maximum of 20 ounces. - No food from midnight until time of surgery - Infants may have breast milk until 4 hours before surgery, formula 6 hours prior to surgery. - Children will be allowed to drink immediately following surgery. If applicable, please bring a bottle or sippy cup to assist with drinking. Juice, water, soda, and popsicles are readily available. For infants on formula, please bring formula the day of surgery. Pacifiers are allowed. Take the following medications with a SIP of water the morning of surgery: ___SULFA Medications to discontinue per physician __NONE Date to take last dose Please no make-up, nail jamaican, hairspray, perfume, deodorant, or body powder the day of surgery. No jewelry (including any body piercings) or valuables the day of surgery, leave them at home. Please take a shower or bath the night before, or the morning of, surgery with an antibacterial soap. Wear comfortable, loose fitting clothing. Children are encouraged to wear pajamas. - Jewelry must be removed prior to entering the operating room. Rings and piercings that are not removed may be cut off. - The hospital will not accept responsibility for valuables. - Please leave all valuables, including medications, at home the day of surgery. If you are going home after surgery, a licensed peg driver must drive you home. - NO public transportation without another adult. - We recommend that an adult stay with you for 24 hours following discharge. - We also recommend that you do not drive, make important decision, drink alcoholic beverages, or take any drugs that were not prescribed by your health care provider for at least 24 hours after your discharge time. One visitor will be allowed to accompany the patient into the hospital. Patients visitor will be instructed to remain with patient at all times or leave the building. We will allow the visitor to come back to the postoperative area when patient is ready. Follow any additional instructions given to you from your surgeon. Telephone instructions given to __PATIENT and asked if any additional questions and then verbalized understanding. Patient advised to call surgeon office or pre surgery nurse liaison [phone] if any additional questions.
--- NOTE | 2021-05-05 08:37 | PC.NURSE ---
PT STATES NO CHANGE IN HEALTH HX SINCE LAST INTERVIEW ON 02/17/21 EXCEPT MRSA +. DR DIAZ ORDERED SULFA ONE TAB BID TO START 5 DAYS PRE OP.
--- NOTE | 2021-05-10 09:34 | WPDANESEPPF ---
Anes - Initial Pre Proc Eval Procedure: Operation Date: 05/11/21 11:00 Proposed Procedures p Ruchi Custom Right Total Knee Arthroplasty - Armand Krishnan MD Date/Time: 05/10/21 09:34 Surgeon: Armand Krishnan MD Pre Op Diagnosis: Prim OA Rt Knee Patient Data Age: 61 Gender: F Height: 1.7 m Weight: 90.8 kg Last Vital Signs Temp 36.3 C L 02/17/21 12:13 Pulse 70 02/17/21 12:13 Resp 16 02/17/21 12:13 BP 162/91 H 02/17/21 12:13 Pulse Ox 100 02/17/21 12:13 Allergies Allergy/AdvReac Type Severity Reaction Status Date / Time No Known Allergies Allergy Verified 05/05/21 08:24 Home Medications Medication Instructions Recorded Confirmed Type olmesartan 40 1 tablet PO QAM #90 tablet 02/24/21 05/05/21 Rx mg-hydrochlorothiazide 25 mg tablet potassium chloride 10 mEq 10 meq PO DAILY #90 tablet 02/24/21 05/05/21 Rx tablet,extended release sulfamethoxazole-trimethoprim 1 tablet PO BID 05/05/21 05/05/21 History Results Review: All pre-operative results and documents have been reviewed as part of the pre-operative evaluation. 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 Thyroid mass of unclear etiology Surgical History Surgical History History of endometrial ablation Family History Family History Mother Family history of diabetes mellitus in first degree relative Hypertension Cerebrovascular accident Father Hypertension Social History Social History Smoking status: Never smoker Second hand tobacco smoke exposure: No Alcohol intake: never Substance use: never Substance use type: does not use Additional living arrangements comments: SPOUSE Gender identity (if verbalized by the patient): Female Spiritual care concerns: No Anes - Eval Final PreProcedure Day of Procedure 05/10/21 09:34 Patient weight: obese Heart: regular rate and rhythm Lungs: clear to auscultation and normal air movement Airway: Mallampati scale class II Neurological: alert and oriented Last oral intake: >/= 8 hours ASA classification: III Emergent: no Anesthetic plan: proceed Anesthesia type and monitoring: general LMA and standard monitoring Results Review: All pre-operative results and documents have been reviewed as part of the pre-operative evaluation. Informed Consent: The patient's anesthetic plan and its attendant risks and benefits were discussed with the patient/family/POA. Questions were solicited and answers provided to the satisfaction of the patient/family/POA.
--- NOTE | 2021-05-10 09:35 | WPDANESPNB ---
Anes - Peripheral Nerve Block Date/Time: 05/17/2021 1230 I have discussed with the patient/family/POA the placement of a peripheral nerve block for post-operative pain management, including associated risks, benefits, complications, and side effects. Alternative methods of post-operative analgesia were detailed. Questions were solicited and answers provided to the satisfaction of the patient/family/POA. Time-Out: A pre-procedural Time-Out was completed immediately before starting the procedure and confirmed: Patient Identification, Site, Procedure, Patient Position and the Availability of Requisite Equipment. Clinical Indications: Acute post-operative pain management requested by the operative surgeon. Nerve Block Insertion Note Anes-nerve block: adductor canal right Patient position: supine Skin prep: chlorhexidine Needle: 22 gauge, stimulating, insulated echogenic needle. Needle length: 80 mm Technique: ultrasound Injectate: bupivacaine 0.5% with epi 5 mcg/ml (30cc - no epi) Observations: tolerated well Complications: none Procedure start time:: 123 Procedure end time:: 123
--- NOTE | 2021-05-11 15:05 | PC.NURSE ---
Report to the Outpatient Waiting Room, entrance under the green pavilion located off [facility], at time _1030 on date __05/17/21 . OR Time: ___1230 . - You and your visitor will be asked a series of questions to screen for COVID 19 for your protection. - A mask is required within the hospital. Preoperative COVID Testing Requirements: No COVID Test needed if: (proof is required; if not received patient will have Rapid Test prior to entry) - Patient has received COVID Vaccine at least 14 days prior to procedure date or - Patient has positive COVID test result within last 90 days of surgery date. COVID Test needed if above criteria is not met If not COVID vaccinated a COVID test must be conducted within 72 hours of surgery and patient is asked to isolate self from time of testing until procedure. You will go to the [facility] for your COVID testing. The [facility] is located at the corner of [address] [facility]. You will only be called if COVID results are positive and your surgeon may reschedule your elective surgery date. Patients may have clear liquids (water, carbonated beverages, clear teas, apple juice) until 3 hours prior to surgery (0930 AM) with a maximum of 20 ounces. - No food from midnight until time of surgery - Infants may have breast milk until 4 hours before surgery, formula 6 hours prior to surgery. - Children will be allowed to drink immediately following surgery. If applicable, please bring a bottle or sippy cup to assist with drinking. Juice, water, soda, and popsicles are readily available. For infants on formula, please bring formula the day of surgery. Pacifiers are allowed. Take the following medications with a SIP of water the morning of surgery: NONE Medications to discontinue per physician NONE Date to take last dose Please no make-up, nail luxembourger, hairspray, perfume, deodorant, or body powder the day of surgery. No jewelry (including any body piercings) or valuables the day of surgery, leave them at home. Please take a shower or bath the night before, or the morning of, surgery with an antibacterial soap. Wear comfortable, loose fitting clothing. Children are encouraged to wear pajamas. - Jewelry must be removed prior to entering the operating room. Rings and piercings that are not removed may be cut off. - The hospital will not accept responsibility for valuables. - Please leave all valuables, including medications, at home the day of surgery. If you are going home after surgery, a licensed cart driver must drive you home. - NO public transportation without another adult. - We recommend that an adult stay with you for 24 hours following discharge. - We also recommend that you do not drive, make important decision, drink alcoholic beverages, or take any drugs that were not prescribed by your health care provider for at least 24 hours after your discharge time. For Pediatric surgeries, we recommend two adults accompany the child home (only one inside the building at this time). One visitor will be allowed to accompany the patient into the hospital. Patients visitor will be instructed to remain with patient at all times or leave the building. We will allow the visitor to come back to the postoperative area when patient is ready. Follow any additional instructions given to you from your surgeon. Telephone instructions given to ___PT and asked if any additional questions and then verbalized understanding. Patient advised to call surgeon office or pre surgery nurse liaison [phone] if any additional questions.
--- NOTE | 2021-05-14 13:38 | P.PNAN_ITS ---
Anes - Initial Pre Proc Eval Procedure: Operation Date: 05/17/21 12:30 Proposed Procedures p Conformis Custom Right Total Knee Arthroplasty - Armand Krishnan MD Date/Time: 05/14/21 13:38 Surgeon: Armand Krishnan MD Pre Op Diagnosis: Prim OA Rt Knee Patient Data Age: 61 Gender: F Height: 1.7 m Weight: 90.8 kg Last Vital Signs Temp 97.4 F L 02/17/21 12:13 Pulse 70 02/17/21 12:13 Resp 16 02/17/21 12:13 BP 162/91 H 02/17/21 12:13 Pulse Ox 100 02/17/21 12:13 Allergies Allergy/AdvReac Type Severity Reaction Status Date / Time No Known Allergies Allergy Verified 05/17/21 10:45 Home Medications Medication Instructions Recorded Confirmed Type olmesartan 40 1 tablet PO QAM #90 tablet 02/24/21 05/05/21 Rx mg-hydrochlorothiazide 25 mg tablet potassium chloride 10 mEq 10 meq PO DAILY #90 tablet 02/24/21 05/05/21 Rx tablet,extended release Patient hx anesthesia problems: none Family hx anesthesia problems: none Results Review: All pre-operative results and documents have been reviewed as part of the pre-operative evaluation. 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 Thyroid mass of unclear etiology Surgical History Surgical History History of endometrial ablation Family History Family History Mother Family history of diabetes mellitus in first degree relative Hypertension Cerebrovascular accident Father Hypertension Social History Social History Smoking status: Never smoker Second hand tobacco smoke exposure: No Alcohol intake: never Substance use: never Substance use type: does not use Living arrangements: with family Additional living arrangements comments: SPOUSE Gender identity (if verbalized by the patient): Female Spiritual care concerns: No Anes - Eval Final PreProcedure Day of Procedure 05/14/21 13:38 Patient weight: obese Heart: regular rate and rhythm Lungs: clear to auscultation Airway: Mallampati scale class III Neurological: alert and oriented Last oral intake: >/= 8 hours ASA classification: III Emergent: no Anesthetic plan: proceed Anesthesia type and monitoring: general LMA and standard monitoring Results Review: All pre-operative results and documents have been reviewed as part of the pre-operative evaluation. Informed Consent: The patient's anesthetic plan and its attendant risks and benefits were discussed with the patient/family/POA. Questions were solicited and answers provided to the satisfaction of the patient/family/POA.
[2021-05-17] VITALS (14 sets, daily range): BP systolic 88–144; BP diastolic 51–86; PULSE 64–96; RESP 12–18; TEMP 35.9–36.8; O2SAT 98–100
--- NOTE | ~2021-05-17 | XR_ITS ---
EXAMINATION: XR knee RT 2V DATE: 05/17/2021 15:59 INDICATION: Postoperative evaluation following right total knee arthroplasty. TECHNIQUE: Anteroposterior and lateral views of the right knee were obtained. COMPARISON: None. FINDINGS: Right total knee arthroplasty with patellar resurfacing appears well seated and in near anatomic alig nment. No fractures identified. Expected postoperative subcutaneous and intra-articular gas. IMPRESSION: 1. Right total knee arthroplasty, negative for postoperative purposes. Reviewed, dictated and finalized at location A. METHOD LASTING MACHINE OPERATOR
--- NOTE | 2021-05-17 08:40 | W.PM.PROC2 ---
Procedure Note - Detailed Date of Procedure 05/17/21 Pre-op Diagnosis Prim OA Rt Knee Post-op Diagnosis Same Procedure Performed Total knee arthroplasty, right. Surgeon Armand Krishnan MD Base Engineer Noa Barber PA-C Anesthesia General and Regional (Subsartorial block.) Indications Severe varus arthritis. Findings Excellent bone quality. No significant release required. One size thicker lateral poly used. Description of Procedure Physician assistant athletic trainer, Noa Krishnamurthy PA-C, required for surgery; including patient positioning, draping, tissue retraction, maintaining instrument position, cement removal, wound closure, and dressing placement. Preoperative antibiotics were given. The limb was prepped and draped in the usual sterile fashion with a well-padded tourniquet high on the thigh. The limb was exsanguinated and the tourniquet inflated to 300 mmHg for exposure and cementation. A longitudinal incision was created just medial to the patella. A trivector approach to the knee was performed. Arthrotomy was taken down through the joint capsule. No significant releases were initially taken. The femur was exposed and the F1 jig was applied. The coring tool was used to remove the cartilage for the F2 jig to sit flush with the bone. The jig was pinned and the distal cut carefully taken. Caliper measurements confirmed appropriate bony resections according to the preoperative templated plan. The F4 cutting jig for the femur was applied, at the standard rotation. The AP and anterior chamfer cuts were taken. The F5 jig was applied and the posterior chamfer cuts were taken. The tibia was prepared using the T1 jig, after removing cartilage for the jig contact points. Proper alignment was checked with the alignment mark. The tibia was cut using the T1u guide. Gap balancing was performed. Gap measurements were taken and the knee was trialed. Excellent alignment and soft tissue balancing was confirmed. The posterior cruciate ligament was recessed along the proximal tibia. The patella was cut for resurfacing. Three lug holes were drilled. Meniscal remnants were removed. The trial components were assembled. Excellent range of motion and proper soft tissue balancing were confirmed throughout the full range of motion. Patellar tracking was excellent. The knee was copiously irrigated periodically throughout the procedure. The real implants were cemented into position. Excess cement was carefully removed. The wound was closed in layers with interrupted #1 Vicryl suture, 2-0 strata fix suture, 0 strata fix suture, 2-0 strata fix suture. Steri-Strips placed on the skin with the knee flexed. Sterile bulky dressing applied. The patient was brought to the recovery room in stable condition. There were no complications. Implants Conformis Custom total knee arthroplasty. Cemented. Cruciate retaining. 8D insert. 32 mm round patella. Estimated Blood Loss -200.0 Urine Output 300 Drains No Complications No immediate complications Condition Stable Disposition PACU
[2021-05-17] MEDS: LACTATED RINGERS 1,000 ML 30 ML IV CONT ×2 (11:18→15:44)
[2021-05-17] MEDS: TRANEXAMIC ACID 1,000MG/ISO100 1,000 MG/100 ML BAG 200 MG IVPB (11:20)
[2021-05-17] MEDS: ACETAMINOPHEN 500 MG TABLET 1000 MG PO (11:40)
--- NOTE | 2021-05-17 12:31 | WPDHPUPDATE1 ---
History and Physical Update Update Date/Time: 05/17/21 12:31 History and Physical has been reviewed, including an updated exam of the patient. There are NO changes in the patient's condition. Risks, benefits, and alternatives have been discussed and questions answered. Patient agrees to proceed with procedure.
[2021-05-17] MEDS: ceFAZolin 2 GM/D5W 50 ML 2 GM/50 ML BAG IVPB ×2 (12:38→20:37)
[2021-05-17] MEDS: fentaNYL CITRATE INJ (*CRX) 100 MCG/2 ML VIAL 25 MCG IV PUSH ×8 (15:53→16:33)
[2021-05-17] MEDS: HYDROmorphone HCL INJ (*CRX) 1 MG/ML SYR 0.5 MG IV PUSH ×2 (16:53→17:00)
[2021-05-17] MEDS: ONDANSETRON INJ 4 MG/2 ML VIAL IV PUSH ×2 (17:21→21:40)
[2021-05-17] MEDS: SODIUM CHLORIDE 0.9% IV 1,000 ML 125 ML IV CONT (17:33)
--- NOTE | 2021-05-17 17:39 | ADMGEN ---
This patient, Nelson Wolfetler, was admitted to Medical Room 253-01. Patient/family oriented to hospital policies and general routines including ID bracelet, bed and alarms, visiting hours, pain management, procedures, bathroom and other care routines, personal items, smoking policy, room service/diet, and visiting hours. Information on how to activate the Rapid Response Team has been discussed. Patient/Family are encouraged to report perceived risks to care and to ask questions if they do not understand what they are told or what they should do.
[2021-05-17] MEDS: KETOROLAC 30 MG/ML VIAL (*BKC) IV PUSH ×2 (18:14→23:05)
[2021-05-17] MEDS: oxyCODONE HCL (*CRX) 5 MG TAB IR PO ×2 (19:36→23:37)
[2021-05-17] MEDS: SENNA/DOCUSATE SODIUM TABLET 2 TAB PO (19:37)
[2021-05-17] MEDS: ASPIRIN 81 MG ENTERIC TABLET PO (19:37)
[2021-05-17] MEDS: FAMOTIDINE 20 MG TABLET PO (20:36)
[2021-05-18 03:22] VITALS: BP 144/82; PULSE 89; RESP 18; TEMP 36.5; O2SAT 100
[2021-05-18] MEDS: oxyCODONE HCL (*CRX) 5 MG TAB IR PO ×2 (03:49→08:04)
[2021-05-18] MEDS: ONDANSETRON INJ 4 MG/2 ML VIAL IV PUSH ×3 (03:49→11:56)
[2021-05-18] MEDS: ceFAZolin 2 GM/D5W 50 ML 2 GM/50 ML BAG IVPB (04:00)
[2021-05-18] MEDS: KETOROLAC 30 MG/ML VIAL (*BKC) IV PUSH ×2 (05:03→11:56)
[2021-05-18 06:55] VITALS: BP 145/82; PULSE 84; RESP 18; TEMP 36.9; O2SAT 100
[2021-05-18] MEDS: FAMOTIDINE 20 MG TABLET PO (08:04)
[2021-05-18] MEDS: hydroCHLOROthiazide 25 MG TABLET PO (08:07)
[2021-05-18] MEDS: ASPIRIN 81 MG ENTERIC TABLET PO (08:07)
[2021-05-18] MEDS: OLMESARTAN MEDOXOMIL 20 MG TABLET 40 MG PO (08:07)
[2021-05-18] MEDS: POTASSIUM CHLORIDE 10 MEQ TABLET.ER PO (08:07)
[2021-05-18] MEDS: polyethylene glycoL 3350 17 GM POWD.PACK PO (08:07)
[2021-05-18] MEDS: SENNA/DOCUSATE SODIUM TABLET 2 TAB PO (08:07)
--- NOTE | 2021-05-18 08:18 | P.DS_ITS ---
DS: Admitting Diagnosis Discharge Date 05/18/21 Admitting Diagnosis OA knee Right DS: Discharge Diagnosis Discharge Diagnosis (1) S/P total knee arthroplasty: Qualifiers: Laterality: left Qualified Code(s): Z96.652 - Presence of left artificial knee joint Code(s): Z96.659 - Presence of unspecified artificial knee joint Status: Acute Assessment and Plan: Postop day 1: Right total knee arthroplasty. Patient tolerated procedure well. No complications. Pain manageable with pain medication. No numbness or tingling. We had a lengthy discussion regarding postoperative wound care, limitations, expectations, and exercises. Patient shows good understanding. He has had initial physical therapy and is tolerating it well. DVT prophylaxis: 81 mg baby aspirin b.i.d. for 14 days. Compression socks. Short frequent walks. Pain medication: Hydrocodone. Prednisone. NSAIDs. Patient has followup appointment with Dr. Krishnan in 3 weeks. DS: Summary Hospital Course Reason for hospitalization: Total knee arthroplasty Hospital Course: Patient tolerated procedure well. Has had initial PT/OT. Status at Discharge Functional status at discharge: uses cane/walker Overall status at discharge: patient is progressing back to baseline Time Spent with Patient Time attestation: Total time spent providing and/or coordinating discharge services: Exam Narrative: Overweight 61 y/o female. Resting comfortably in chair. Wearing compression socks bilaterally. Dressing intact with no drainage. Moderate swelling. No ecchymosis. No erythema. No hematoma. Range of motion limited due to pain. 10-80. Calf nontender. Neurologic status intact. No varicosities. Distal pulses palpable. Discharge Plan Discharge Patient Disposition: Home, Self-Care Discharge Instructions: See green instruction sheet Patient Instructions: Joint Replacement Surgery (DC), Knee Replacement (DC) Follow-up/Referrals: Noa Krishnamurthy PA [Physician Manager Of Digital] - Discharge Medications: New hydrocodone-acetaminophen 5-325 mg tablet 1 - 2 tablet PO Q4-6H MDD 8 PRN (Reason: pain) Qty: 30 RF: 0 aspirin 81 mg tablet,delayed release (DR/EC) 81 mg PO BID 14 Days Qty: 28 RF: 0 prednisone 5 mg tablet 5 mg PO DAILY 21 Days Qty: 21 RF: 0 Continued potassium chloride 10 mEq tablet extended release 10 meq PO DAILY Qty: 90 RF: 3 olmesartan-hydrochlorothiazide [Benicar HCT] 40-25 mg tablet 1 tablet PO QAM Qty: 90 RF: 3
[2021-05-18 11:29] VITALS: BP 125/54; PULSE 94; RESP 20; TEMP 36.3; O2SAT 99
== END 2021-05-18 12:00 | disposition home or self-care (01) ==
LOC: ANHSURGERY 10:26 → ANH2MED 17:11
PROVIDERS: PCP Internal Medicine; Visit Provider Orthopaedic Surgery
PROC: (CPT 27447; principal; 2021-05-17 12:30)
DX: M17.11 Unilateral primary osteoarthritis, right knee (principal); G89.18 Other acute postprocedural pain; I10 Essential (primary) hypertension; E66.9 Obesity, unspecified; Z68.31 Body mass index [BMI] 31.0-31.9, adult
CPT/HCPCS: 27447; 64447; 73560; 97110; 97116; 97161; 97165; A9270; C1713; C1776; J0131; J0171; J0690; J1100; J1170; J1885; J2250; J2270; J2405; J2704; J2795; J3010; J7030; J7120

== ENCOUNTER 2021-05-19 20:48 | Observation (INO) | payer OTHER, SELFPAY ==
--- NOTE | ~2021-05-19 | CT_ITS ---
EXAMINATION: CTA chest PE protocol DATE: 05/19/2021 22:16 INDICATION: Postoperative chest pain, shortness of breath and fever TECHNIQUE: Computed tomography (CT) pulmonary angiogram of the chest was performed with 100 mL Omnipa que-350 intravenous contrast. Additional 3D reconstructions utilizing coronal maximum intensity proje ction (MIP) were performed. Automated exposure control and iterative reconstruction technique were em ployed. The dose-length product was 361.86 mGy-cm. COMPARISON: None FINDINGS: Adequate but suboptimal contrast opacification of the pulmonary arteries. There is mild streak artifa ct from dense contrast in the superior vena cava and right atrium. Mild scattered respiratory motion artifact. Together this mildly decreases sensitivity in some of the smaller subsegmental pulmonary ar teries. No pulmonary embolism. No pneumonia, pulmonary edema or pleural effusion. Unchanged likely be nign 6-7 mm groundglass nodule in the superior segment of the right lower lobe which has been present since 2005. Heart size is normal. No pericardial effusion. Thoracic aorta is normal in caliber with no dissection. No pathologically enlarged thoracic lymphadenopathy. Spleen is absent. Upper abdomen i s otherwise unremarkable. Moderate thoracic spondylosis. IMPRESSION: 1. No pulmonary embolism or other acute cardiopulmonary disease. Reviewed, dictated and finalized at location A. N LIFEGUARD
--- NOTE | ~2021-05-19 | US_ITS ---
EXAMINATION: US venous doppler LE RT DATE: 05/20/2021 08:46 INDICATION: Right lower limb swelling TECHNIQUE: Burton scale images without and with compression and Doppler images of the right lower extre mity veins were obtained. COMPARISON: 09/06/2019 FINDINGS: The right common femoral vein, profunda femoral vein, femoral vein, popliteal vein, peronea l trunk, posterior tibial veins, and greater saphenous vein are patent. IMPRESSION: 1. Patent right lower extremity veins. No evidence of deep venous thrombosis. Reviewed, dictated and finalized at location B. UTER COMPOSITOR
--- NOTE | ~2021-05-19 | XR_ITS ---
EXAMINATION: XR chest 1V portable DATE: 05/19/2021 21:05 INDICATION: Left back and chest pain. TECHNIQUE: frontal view of the chest was obtained. COMPARISON: Chest radiograph dated 01/27/20 FINDINGS: The lungs are clear with no focal airspace opacities, pulmonary edema, pleural effusion or pneumothor ax. The cardiomediastinal silhouette is normal. IMPRESSION: 1. No acute cardiopulmonary disease. Reviewed, dictated and finalized at location A. COORDINATOR
--- NOTE | ~2021-05-19 | XR_ITS ---
EXAMINATION: XR chest 2V DATE: 05/20/2021 13:16 INDICATION: Fever and midsternal chest pain TECHNIQUE: AP and lateral views of the chest are obtained. COMPARISON: 05/19/2021 FINDINGS: The lungs are free of acute opacities. There is no pleural effusion or pneumothorax. The ca rdiomediastinal silhouette is normal. There is moderate thoracic spondylosis. IMPRESSION: 1. No acute cardiopulmonary abnormality. Reviewed, dictated and finalized at location B. GER AUTOMOTIVE
[2021-05-19 20:53] VITALS: TEMP 37.4
--- NOTE | 2021-05-19 20:53 | ECG_ITS ---
Measurements Intervals [place] Rate: 118 P: 44 MI: 179 QRS: 48 QRSD: 74 T: 27 QT: 294 QTc: 413 Interpretive Statements SINUS TACHYCARDIA NONSPECIFIC T-WAVE ABNORMALITY BORDERLINE ECG COMPARED TO ECG 01/25/2021 13:47:24 SINUS TACHYCARDIA NOW PRESENT T-WAVE ABNORMALITY NOW PRESENT Electronically Signed On 05-20-2021 13:49:56 OCCUPATIONAL THERAPIST'S ASSISTANT by Pb Resendez M.D.
[2021-05-19 21:00] VITALS: PULSE 118; O2SAT 96
[2021-05-19 21:04] VITALS: BP 132/87; PULSE 120; RESP 20; TEMP 38.7; O2SAT 96
[2021-05-19 21:05] LABS: Basophils Absolute Auto 0.1 K/mm3 (0.0-0.1); Basophils Percent Auto 0.4 % (0.2-1.2); Eosinophils Absolute Auto 0.5 K/mm3 (0-0.3); Eosinophils Percent Auto 2.9 % (0-4.4); Hematocrit 31.2 % (37.0-47.0); Hemoglobin 10.4 g/dL (12.0-15.0); Immature Granulocyte Absolute 0.13 K/mm3 (0.00-0.031); Immature Granulocyte Percent A 0.7 % (0-0.5); Lymphocytes Absolute Auto 4.99 K/mm3 (0.9-3.2); Mean Corpuscular HGB Conc 33.3 g/dl (32-36); Mean Corpuscular Hemoglobin 31.4 pg (26-34); Mean Corpuscular Volume 94.3 fl (80-100); Mean Platelet Volume 9.1 fl (7.4-10.4); Monocytes Percent Auto 11.1 % (2.6-8.5); Neutrophils Absolute Auto 10.1 K/mm3 (1.3-6.7); Neutrophils Percent Auto 56.9 % (45.5-73.1); Platelet Count Result 450 k/mm3 (150-375); Red Blood Count 3.31 M/mm3 (4.2-5.4); Red Cell Distribution Width 12.7 % (11.5-14.5); White Blood Count 17.8 K/mm3 (4.5-10.0)
--- NOTE | 2021-05-19 21:11 | ED.CHESTPAIN ---
HPI - Chest Pain General Chief Complaint: Chest Pain Stated Complaint: fever, chest pain, sob Time Seen by Provider: 05/19/21 20:50 Source: patient Mode of arrival: wheelchair Limitations: no limitations History of Present Illness HPI narrative: This is a 61 year old female s/p right knee kneeplacement 2 days ago who presents for evaluation of fever, shortness of breath and chest pain. Patient developed fever left upper back pain a few hours ago. Her left upper back pain has been constant and it radiates to her left chest. She is also complaining of shortness of breath. Her fever prior to arrival was 103 F so she came to ER. She denies pleuritic chest pain, nausea, vomiting, sore throat, runny nose, abdominal pain or diarrhea. She had right knee replacement on Monday and she reports her pain has been well controlled. She has not noticed any drainage. Patient was placed on aspirin 81 mg daily postoperatively. Denies heart disease or PE/DVT in the past. She took pain pill 1.5 hour ago. Related Data Allergies Allergy/AdvReac Type Severity Reaction Status Date / Time No Known Allergies Allergy Verified 05/17/21 18:00 Review of Systems Review of Systems: All systems reviewed & are unremarkable except as noted in HPI and below Constitutional: Constitutional: Reports chills and Reports fever(s) Cardiovascular: Cardiovascular: Reports chest pain Respiratory: Respiratory: Denies cough and Reports dyspnea Gastrointestinal: Gastrointestinal: Denies abdominal pain, Denies diarrhea, Denies nausea and Denies vomiting Genitourinary: Genitourinary: Denies hematuria and Denies flank pain Musculoskeletal: Musculoskeletal: Reports back pain PMF Past Medical History Medical History (Updated 05/20/21 @ 06:48 by Theresa Resendiz MD) H/O: HTN (hypertension) Hypertension Lumbosacral radiculopathy at S1 Pneumonia due to COVID-19 virus (01/2020) 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 Smoking status: Never smoker Second hand tobacco smoke exposure: No Alcohol intake: never Substance use: never Substance use type: does not use Gender identity (if verbalized by the patient): Female Spiritual care concerns: No Exam Const: General: alert Orientation/consciousness: patient oriented x3 HENMT: Ears: TM's normal bilaterally Eyes: EOM: EOMs intact bilaterally Chest: Chest palpation & inspection: normal inspection of the chest Resp: Effort & Inspection: normal respiratory effort, not labored, no retractions and not tachypneic Auscultation: clear to auscultation bilaterally Cardio: Rate: tachycardic Heart sounds: no murmurs GI: GI Palp: Yes Soft to palpation, No Tenderness to palpation present (GI), No Guarding due to palpation present (GI) and No Rigid due to palpation Auscultation: normal bowel sounds Back/Spine/Pelvis: Back: no CVA tenderness Skin: General skin exam: normal color Rashes: no rashes Neuro: General: patient oriented x3, moves all extremities and CN's II-XI intact bilaterally Psych: Mental Status: mental status grossly normal Affect: normal affect Course Reevaluation(s) Reevaluation #1: I discussed with patient that she will be admitted for observation. She has leukocytosis and fever with no obvious source. Her right knee wound do
[2021-05-19 21:14] LABS: INR 1.2; Prothrombin Time 14.5 Seconds (11.1-14.7)
[2021-05-19 21:15] LABS: Partial Thromboplastin Time 32.3 SECONDS (22.3-36.8)
--- NOTE | 2021-05-19 21:20 | PC.NURSE ---
OSWALDO Resendiz was asked about starting IVF. No new orders were given. Will continue to monitor patient.
[2021-05-19 21:46] LABS: Lactic Acid Reflex 0.8 mmol/L (0.7-2.1)
[2021-05-19 21:47] LABS: Alanine Aminotransferase 27 U/L (4-35); Albumin Level 3.8 g/dL (3.5-5.1); Alkaline Phosphatase 79 U/L (38-126); Anion Gap 6 mmol/L (8-16); Aspartate Amino Transferase 57 U/L (14-36); Bilirubin,Total 1.3 mg/dL (0.2-1.3); Blood Urea Nitrogen 14 mg/dL (7-17); Calcium 8.5 mg/dL (8.4-10.2); Carbon Dioxide 26 mmol/L (22-30); Chloride 104 mmol/L (98-107); Estimated CRCL calculation 60 ml/min; Estimated Glomerular Filt Rate > 60; Glucose 121 mg/dL (65-110); Lipase 27 U/L (23-300); Potassium 3.7 mmol/L (3.4-5.0); Sodium 136 mmol/L (137-145)
[2021-05-19 21:59] LABS: NT Pro B Type Natriuretic Pept 727 pg/mL (5-100); Troponin I 0.026 ng/mL (0.000-0.034)
[2021-05-19 22:25] LABS: SARS-CoV-2 RNA PCR Negative
[2021-05-19] MEDS: SODIUM CHLORIDE 0.9% IV 1,000 ML 999 ML IV CONT (22:58)
[2021-05-19] MEDS: ONDANSETRON INJ 4 MG/2 ML VIAL IV PUSH (22:59)
[2021-05-19] MEDS: MORPHINE SULFATE (*CRX) 4 MG/ML INJ IV PUSH (23:01)
[2021-05-19 23:03] VITALS: BP 133/80; PULSE 109; RESP 18; TEMP 37.9; O2SAT 97
[2021-05-19 23:05] LABS: Add Urine Microscopic? YES; Appearance Urine Clear (Clear); Bilirubin Urine Negative (Negative); Blood Urine 1+ (Negative); Color Urine Yellow (Yellow); Glucose Urine UA Negative (Negative); Ketones Urine Trace mg/dL (Negative); Leukocyte Esterase Ur Negative LEU/UL (Negative); Mucus Urine Rare /lpf; Nitrate Urine Negative (Negative); Protein Urine Negative (Negative); Squamous Epithelial Cell Urine Few /hpf (Few); WBC Urine 0-3 /hpf
[2021-05-19 23:07] LABS: Specific Grav Ur 1.051 (1.001-1.035)
[2021-05-20] VITALS (15 sets, daily range): BP systolic 113–139; BP diastolic 65–89; PULSE 78–112; RESP 16–22; TEMP 37.2–38.1; O2SAT 93–100; BMI 32.8
[2021-05-20] MEDS: SODIUM CHLORIDE 0.9% IV 1,000 ML 999 ML IV CONT (00:08)
[2021-05-20] MEDS: HYDROcodone/acetaminophen (*CRX) 5-325 MG TABLET 1 TAB PO ×6 (01:36→21:55)
[2021-05-20] MEDS: SODIUM CHLORIDE 0.9% IV 1,000 ML 125 ML IV CONT ×3 (01:36→17:41)
--- NOTE | 2021-05-20 01:53 | PC.NURSE ---
This patient, Nelson Monsalve, was admitted to Medical Room 343-01. Patient/family oriented to hospital policies and general routines including ID bracelet, bed and alarms, visiting hours, pain management, procedures, bathroom and other care routines, personal items, smoking policy, room service/diet, and visiting hours. Information on how to activate the Rapid Response Team has been discussed. Patient/Family are encouraged to report perceived risks to care and to ask questions if they do not understand what they are told or what they should do. Incision dressing clean dry and intake, ambulated well with walker.
--- NOTE | 2021-05-20 03:52 | PM.IMHP ---
H&P: HPI History of Present Illness Date/Time: 05/20/21 02:30 Chief Complaint: Upper back pain, fever Narrative: 61-year-old female with past medical history of hypertension and osteoarthritis status post right total knee arthroplasty 05/17/2021 presented to the ER via private vehicle due to back pain radiating suggest and fever. The patient reported that around 2:00 p.m. she noticed upper back pain that is between 6 and 8 left paraspinal muscle region that radiates around the left side of the chest into the anterior chest. It is not worse with deep breathing. She has had not had any associated cough. The pain started suddenly. It was accompanied by a sensation of feeling feverish. Symptoms started around 2:00 p.m.. Her went to pharmacy and got a thermometer her temperature at home was 103.5?. She denies any dysuria or hematuria. She has noticed that her urine has been darker than usual despite her trying to stay hydrated by drinking water. She denies any nausea or vomiting. She has not had a bowel movement since surgery. She denies any abdominal pain. She has been taking Colace without relief in her constipation. She did not take her Colace today. She denies any nasal congestion, sore throat or upper respiratory symptoms. She reports reproducibility over back pain with palpation of the left paraspinal muscles. She has been taking her pain meds at home without relief in her pain. She reports that her knee pain is as expected and about 5/10 in intensity. She has not noticed any drainage or increased pain in the leg. Her incision is clean dry and intact. She has not noticed any increased swelling of her right lower extremity. She reported that after her last knee replacement she had had some fever with no known source of infection as well. She had a COVID swab and a flu swab in the ER that was negative. The patient had COVID January 2020 and is fully vaccinated against COVID-19 and has had a booster. Review of Systems Review of Systems: 12 systems were reviewed with pertinent positives and negatives per HPI. Except as documented in the HPI, all other systems were reviewed and are negative. 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 Smoking status: Never smoker Second hand tobacco smoke exposure: No Alcohol intake: never Substance use: never Substance use type: does not use Gender identity (if verbalized by the patient): Female Spiritual care concerns: No Meds Home Medications and Allergies Home Medications Medication Instructions Recorded Confirmed Type olmesartan 40 1 tablet PO QAM #90 tablet 02/24/21 05/17/21 Rx mg-hydrochlorothiazide 25 mg tablet potassium chloride 10 mEq 10 meq PO DAILY #90 tablet 02/24/21 05/17/21 Rx tablet,extended release aspirin 81 mg PO BID 14 Days #28 tablet 05/18/21 Rx hydrocodone-acetaminophen 1 - 2 tablet PO Q4-6H PRN #30 05/18/21 Rx tablet MDD 8 prednisone 5 mg PO DAILY 21 Days #21 tablet 05/18/21 Rx Allergies Allergy/AdvReac Type Severity Reaction Status Date / Time No Known Allergies Allergy Verified 05/17
[2021-05-20 04:16] LABS: Basophils Absolute Auto 0.1 K/mm3 (0.0-0.1); Basophils Percent Auto 0.4 % (0.2-1.2); Eosinophils Absolute Auto 0.5 K/mm3 (0-0.3); Eosinophils Percent Auto 2.8 % (0-4.4); Hematocrit 29.1 % (37.0-47.0); Hemoglobin 9.8 g/dL (12.0-15.0); Immature Granulocyte Percent A 0.6 % (0-0.5); Lymphocytes Absolute Auto 5.56 K/mm3 (0.9-3.2); Mean Corpuscular HGB Conc 33.7 g/dl (32-36); Mean Corpuscular Hemoglobin 31.8 pg (26-34); Mean Corpuscular Volume 94.5 fl (80-100); Monocytes Absolute Auto 1.9 K/mm3 (0.1-0.6); Monocytes Percent Auto 10.5 % (2.6-8.5); Neutrophils Absolute Auto 9.8 K/mm3 (1.3-6.7); Neutrophils Percent Auto 54.7 % (45.5-73.1); Nucleated Red Blood Cells Perc 0.1 % (0.0-0.2); Platelet Count Result 411 k/mm3 (150-375); Red Blood Count 3.08 M/mm3 (4.2-5.4); Red Cell Distribution Width 12.9 % (11.5-14.5); White Blood Count 17.9 K/mm3 (4.5-10.0)
[2021-05-20 04:28] LABS: Alanine Aminotransferase 25 U/L (4-35); Albumin Level 3.8 g/dL (3.5-5.1); Alkaline Phosphatase 78 U/L (38-126); Anion Gap 7 mmol/L (8-16); Aspartate Amino Transferase 45 U/L (14-36); Bilirubin,Total 1.2 mg/dL (0.2-1.3); Blood Urea Nitrogen 11 mg/dL (7-17); Calcium 8.2 mg/dL (8.4-10.2); Carbon Dioxide 27 mmol/L (22-30); Chloride 105 mmol/L (98-107); Estimated CRCL calculation 78 ml/min; Estimated Glomerular Filt Rate > 60; Glucose 104 mg/dL (65-110); Potassium 3.4 mmol/L (3.4-5.0); Sodium 139 mmol/L (137-145)
[2021-05-20 04:37] LABS: Troponin I 0.024 ng/mL (0.000-0.034)
[2021-05-20 04:49] LABS: Atypical Lymphocytes Present; Platelet Estimate Adequate (Adequate)
[2021-05-20 05:48] LABS: Erythrocyte Sedimentation Rate 119 mm/hr (0-20)
[2021-05-20 05:55] LABS: CRP 21.2 mg/dL (<1.0)
[2021-05-20] MEDS: POTASSIUM CHLORIDE 10 MEQ TABLET.ER PO (08:37)
[2021-05-20] MEDS: ASPIRIN 81 MG ENTERIC TABLET PO ×2 (09:37→17:41)
[2021-05-20] MEDS: OLMESARTAN MEDOXOMIL 20 MG TABLET 40 MG PO (10:38)
[2021-05-20] MEDS: predniSONE 5 MG TABLET PO (10:38)
[2021-05-20] MEDS: hydroCHLOROthiazide 25 MG TABLET PO (10:38)
[2021-05-20] MEDS: ENOXAPARIN 40 MG/0.4 ML SYRINGE SUB-Q (10:39)
[2021-05-20] MEDS: polyethylene glycoL 3350 17 GM POWD.PACK PO (10:42)
[2021-05-20] MEDS: DOCUSATE SODIUM 100 MG CAPSULE PO ×2 (10:42→21:04)
--- NOTE | 2021-05-20 14:28 | PM.IMPN ---
Progress Note: A&P Assessment and Plan (1) SIRS (systemic inflammatory response syndrome): Onset Date: ~05/2021 Code(s): R65.10 - Systemic inflammatory response syndrome (SIRS) of non-infectious origin without acute organ dysfunction Status: Acute Assessment and Plan: - Continued leukocytosis present with fever, and tachycardia concerning for SIRS/Bacteremia/Septicemia. No signs of Meningismus. - Started on empiric abx therapy with Azithromycin and Rocephin. - Blood cultures are pending, CXRx2 now are negative for acute findings, and there is no noted Urine culture pending. - Urine culture is ordered at that time. - Repeat CXR, a two view was performed to evaluate if there is an interval formation of a cardiopulmonary process pending. It was negative once more. - Pt. endorses a similar post-operative course after her other knee was replaced. Hence the dose of Prednisone 5 mg po daily for 21 days. - Orthopedics is consulted as she is in a post-operative course under their care. Appreciate their insight and recommendations. - Continue to trend VS and labs. (2) Status post right knee replacement: Code(s): Z96.651 - Presence of right artificial knee joint Status: Acute Assessment and Plan: - As noted above. (3) Paraspinal muscle spasm: Code(s): M62.830 - Muscle spasm of back Status: Acute Assessment and Plan: - Supportive care for pain. Time Spent With Patient Time with patient: 15 - 25 minutes Subjective Date/time seen: 05/20/21 1220 This pt. is examined at the bedside in interval assessment. She reports that she is feeling a little bit better today, but continues to have pain in her back on the left side as well as in the operative knee. She continues to be intermittently febrile, and she remains tachycardic. She remains on IVF of NS at 125 ml/hr. Orthopedics has been consulted to see the patient today as she has just had a Right total knee arthroplasty. Her Hgb remain elevated at 17.9, ESR remains elevated at 119, CRP remains elevated at 21.2, and troponin's are negative. COVID is negative. Venous doppler is negative, as well as repeat CXR today remains negative for any acute cardiopulmonary process. She denies any new complaints of new pains, dyspnea, palpitations, N/V/D, headache or additional concerns. She remains on empiric abx of Azithromycin and Rocephin. Will consider discontinuing them when WBC count is trending downward. The patient has previously had a left total knee replacement and had a post-operative course significant for the same symptoms that she presented with last evening. In an effort to stop this reaction from happening again, her Orthopedic surgeon placed her on low dose Prednisone of 5 mg po daily for 21 days after surgery at discharge on 05/18/21. The preliminary blood cultures are negative at this point. Urine did not reflex to culture, but one is being ordered for now. COVID repeat is negative. Review of Systems Review of Systems: A 12 point ROS was performed and is otherwise unremarkable with exception of what is noted in HPI. All systems reviewed & are unremarkable except as noted in HPI and below Exam Narrative: PHYSICAL EXAM: WEIGHT 95.1 kg BMI 32.8 General: No acute distress, obese HEENT: Mucous membranes are moist, no oral pharyngeal erythema, crowded posterior oropharynx, pupils are equal and reactive, no scleral icterus, large neck circumference Respiratory: Clear to auscultation bilaterally, no increased work of breathing Cardiovascular: Sinus tachycardia, 2+ bilateral radial pedal pulses Gastrointestinal: Soft, obese, hyperactive bowel sounds Skin: Mold to the left midback with dark pigmentation Musculoskeletal: Dressing in place over right anterior knee incision, trace to 1+ edema right lower extremity, no calf pain Neurological: Alert and oriented, speech is clear, no facial asymmetry, no localizing neurologic deficits on limited exam Psychiat
--- NOTE | 2021-05-20 16:14 | PM.PNORT ---
Progress Note: A&P Assessment and Plan (1) Status post right knee replacement: Code(s): Z96.651 - Presence of right artificial knee joint Status: Acute Additional Plan Patient is status post TKA. Symptoms are similar to her symptoms after her contralateral TKA a few years ago. Patient is also very anxious. Discussed the typical recovery after TKA with patient. No signs of infection. Dressing dry and intact. No drainage. I recommend she continue her post operative instructions including strict ice and elevation. I recommend elevating her toes above her nose for 40 minutes out of every hour and ice every 20 minutes. She should continue her postop medications. Okay for discharge from orthopaedic standpoint once she is cleared medically. She has a follow up appointment already scheduled. Subjective Subjective Date/Time Seen: 05/20/21 12:30 Patient resting comfortably in a chair. No acute distress. Complains of back pain, knee pain, and swelling. States she was having chest pains and had a fever of 103 F. No complaints today. Review of Systems Review of Systems: All systems reviewed & are unremarkable except as noted in HPI and below Exam Narrative: Overweight 61 y/o female. No acute distress. Alert and oriented x3. Dressing dry and intact without drainage. No instability. Moderate swelling. Moderate erythema. Range of motion 5-85 degrees. Calf nontender. Neurologic status intact. No varicosities. Distal pulses palpable. Objective Data Vital Signs Vital Signs: Vital Signs - 24 hr 05/19/21 20:53 05/19/21 21:00 05/19/21 21:04 Temperature 99.3 F 101.6 F H Pulse Rate 118 H 120 H Respiratory Rate 20 Blood Pressure 132/87 Pulse Oximetry 96 96 05/19/21 23:03 05/20/21 00:11 05/20/21 00:50 Temperature 100.2 F H 99.4 F Pulse Rate 109 H 109 H 102 H Respiratory Rate 18 22 H 20 Blood Pressure 133/80 139/89 135/82 Pulse Oximetry 97 96 97 05/20/21 01:05 05/20/21 01:38 05/20/21 03:57 Temperature 100.5 F H 99.8 F H Pulse Rate 105 H 103 H 107 H Respiratory Rate 18 16 Blood Pressure 129/89 137/66 Pulse Oximetry 100 93 05/20/21 04:00 05/20/21 08:00 05/20/21 09:06 Temperature Pulse Rate 105 H 108 H Respiratory Rate Blood Pressure Pulse Oximetry 94 05/20/21 13:20 05/20/21 15:05 Temperature 99.2 F Pulse Rate 107 H 106 H Respiratory Rate 18 Blood Pressure 138/67 Pulse Oximetry 95 Intake/Output Intake/Output: Intake & Output 05/17/21 05/18/21 05/19/21 05/20/21 23:59 23:59 23:59 23:59 Intake Total 65 2810 Output Total 600 Balance 65 2210 Meds/Results Medications: Active Medications Generic Name Dose Route Start Last Admin Trade Name Freq PRN Reason Stop Dose Admin Hydrocodone Bitart/Acetaminophen 1 tab 05/19/21 23:52 05/20/21 14:30 Hydrocodone/Acetaminophen (*Crx) 5-325 Mg Tablet PO 1 tab Q4H PRN Administration Pain Rated 4-6 Aspirin 81 mg 05/20/21 09:00 05/20/21 09:37 Aspirin 81 Mg Enteric Tablet PO 05/25/21 17:01 81 mg BID LISA Administration Docusate Sodium 100 mg 05/20/21 09:00 05/20/21 10:42 Docusate Sodium 100 Mg Capsule PO 100 mg Q12HR LISA Administration Enoxaparin Sodium 40 mg 05/20/21 09:00 05/20/21 10:39 Enoxaparin 40 Mg/0.4 Ml Syringe SUB-Q 40 mg DAILY LISA Administration Hydrochlorothiazide 25 mg 05/20/21 09:00 05/20/21 10:38 Hydrochlorothiazide 25 Mg Tablet PO 25 mg QAM LISA Administration Sodium Chloride 1,000 mls @ 125 mls/hr 05/19/21 23:55 05/20/21 12:09 Normal Saline Iv IV CONT 125 mls/hr .Q8H LISA Administration Menthol/Methyl Salicylate 1 applic 05/20/21 03:10 Menthol 10% / Methyl Salicylate 15% 57 Gm Tube TOPICAL BID PRN Muscle/Joint Pain Morphine Sulfate 4 mg 05/19/21 23:52 Morphine Sulfate (*Crx) 4 Mg/Ml Inj IV PUSH Q2H PRN Pain Rated 7-10 Olmesartan 40 mg 05/20/21 09:00 05/20/21 10:38 Olmesartan Medoxomil 2
[2021-05-21] VITALS (9 sets, daily range): BP systolic 141–158; BP diastolic 76–84; PULSE 88–117; RESP 17–20; TEMP 37.4–37.6; O2SAT 97–100
[2021-05-21] MEDS: HYDROcodone/acetaminophen (*CRX) 5-325 MG TABLET 1 TAB PO ×2 (03:53→23:53)
[2021-05-21 06:10] LABS: Alanine Aminotransferase 41 U/L (4-35); Albumin Level 3.2 g/dL (3.5-5.1); Alkaline Phosphatase 80 U/L (38-126); Anion Gap 5 mmol/L (8-16); Aspartate Amino Transferase 71 U/L (14-36); Bilirubin,Total 1.1 mg/dL (0.2-1.3); Blood Urea Nitrogen 10 mg/dL (7-17); CRP 17.9 mg/dL (<1.0); Calcium 8.2 mg/dL (8.4-10.2); Carbon Dioxide 28 mmol/L (22-30); Chloride 105 mmol/L (98-107); Estimated CRCL calculation 78 ml/min; Estimated Glomerular Filt Rate > 60; Glucose 114 mg/dL (65-110); Potassium 3.5 mmol/L (3.4-5.0); Sodium 138 mmol/L (137-145)
[2021-05-21 06:11] LABS: Basophils Absolute Auto 0.1 K/mm3 (0.0-0.1); Basophils Percent Auto 0.3 % (0.2-1.2); Eosinophils Absolute Auto 0.4 K/mm3 (0-0.3); Eosinophils Percent Auto 2.8 % (0-4.4); Hematocrit 25.2 % (37.0-47.0); Hemoglobin 8.6 g/dL (12.0-15.0); Immature Granulocyte Absolute 0.08 K/mm3 (0.00-0.031); Immature Granulocyte Percent A 0.5 % (0-0.5); Lymphocytes Absolute Auto 4.41 K/mm3 (0.9-3.2); Lymphocytes Percent Auto 28.5 % (18.3-44.2); Mean Corpuscular HGB Conc 34.1 g/dl (32-36); Mean Corpuscular Hemoglobin 31.9 pg (26-34); Mean Corpuscular Volume 93.3 fl (80-100); Mean Platelet Volume 8.7 fl (7.4-10.4); Monocytes Absolute Auto 1.7 K/mm3 (0.1-0.6); Monocytes Percent Auto 10.9 % (2.6-8.5); Neutrophils Absolute Auto 8.8 K/mm3 (1.3-6.7); Nucleated Red Blood Cells Perc 0.2 % (0.0-0.2); Platelet Count Result 394 k/mm3 (150-375); Red Cell Distribution Width 12.9 % (11.5-14.5); White Blood Count 15.5 K/mm3 (4.5-10.0)
[2021-05-21 07:03] LABS: Procalcitonin 0.1 ng/mL
[2021-05-21] MEDS: SODIUM CHLORIDE 0.9% IV 1,000 ML 125 ML IV CONT ×4 (07:07→23:54)
[2021-05-21] MEDS: HYDROcodone/acetaminophen (*CRX) 5-325 MG TABLET 2 TAB PO ×3 (08:10→18:20)
[2021-05-21] MEDS: POTASSIUM CHLORIDE 10 MEQ TABLET.ER PO (08:15)
[2021-05-21] MEDS: OLMESARTAN MEDOXOMIL 20 MG TABLET 40 MG PO (08:16)
[2021-05-21] MEDS: predniSONE 5 MG TABLET PO (08:16)
[2021-05-21] MEDS: ASPIRIN 81 MG ENTERIC TABLET PO ×2 (08:16→16:10)
[2021-05-21] MEDS: hydroCHLOROthiazide 25 MG TABLET PO (08:17)
[2021-05-21] MEDS: MENTHOL 10% / METHYL SALICYLATE 15% 57 GM TUBE 1 APPLIC TOPICAL (08:19)
[2021-05-21] MEDS: DOCUSATE SODIUM 100 MG CAPSULE PO ×2 (08:25→20:44)
[2021-05-21] MEDS: polyethylene glycoL 3350 17 GM POWD.PACK PO (08:25)
[2021-05-21 08:29] LABS: Erythrocyte Sedimentation Rate > 140 mm/hr (0-20)
[2021-05-21] MEDS: LACTULOSE 20 GM/30 ML UDC PO (10:39)
--- NOTE | 2021-05-21 12:14 | PM.IMPN ---
Progress Note: A&P Assessment and Plan (1) SIRS (systemic inflammatory response syndrome): Onset Date: ~05/2021 Code(s): R65.10 - Systemic inflammatory response syndrome (SIRS) of non-infectious origin without acute organ dysfunction Status: Acute Assessment and Plan: - Continued leukocytosis present with fever, and tachycardia concerning for SIRS/Bacteremia/Septicemia. No signs of Meningismus. - Started on empiric abx therapy with Azithromycin and Rocephin. - Blood cultures are pending, CXRx2 now are negative for acute findings, and there is no noted Urine culture pending. - Urine culture is ordered at that time. - Repeat CXR, a two view was performed to evaluate if there is an interval formation of a cardiopulmonary process pending. It was negative once more. - Pt. endorses a similar post-operative course after her other knee was replaced. Hence the dose of Prednisone 5 mg po daily for 21 days. - Orthopedics has consulted and cleared for discharge as pt. has no signs of infection in her knee and they document a similar postoperative course with her previous knee replacement. Follow up appointment has already been made and she has to call to set up PT. (2) Status post right knee replacement: Code(s): Z96.651 - Presence of right artificial knee joint Status: Acute Assessment and Plan: - As noted above. (3) Paraspinal muscle spasm: Code(s): M62.830 - Muscle spasm of back Status: Acute Assessment and Plan: - Supportive care for pain. - Repeat CXR was negative for any acute findings. (4) Constipation: Qualifiers: Constipation type: drug induced constipation Qualified Code(s): K59.03 - Drug induced constipation Code(s): K59.00 - Constipation, unspecified Status: Acute Assessment and Plan: - No BM since surgery, now 5 days ago. - Lactulose 20 mg ordered x1. Time Spent With Patient Time with patient: 15 - 25 minutes Subjective Date/time seen: 05/21/21 0930 This pt. was examined at the bedside in interval assessment. She continues to improve today with her pain of her knee as it is controlled with [place] at this time. Her only complaint is that she has not had a BM in five days despite the medications she has been taking to help her have one. Pt. has interval improvement in her labs and has been afebrile since last evening. She is participating well with PT and Orthopedics has cleared her for discharge. Pt. requests to wait until she has a BM today to go tomorrow. This is appropriate as her sed rate has increased. Will continue to monitor with AM labs. Review of Systems Review of Systems: A 12 point ROS was performed and is otherwise unremarkable with exception of what is noted in HPI. All systems reviewed & are unremarkable except as noted in HPI and below All systems reviewed & are unremarkable except as noted in HPI and below Exam Narrative: PHYSICAL EXAM: WEIGHT 95.1 kg BMI 32.8 General: No acute distress, obese HEENT: Mucous membranes are moist, no oral pharyngeal erythema, crowded posterior oropharynx, pupils are equal and reactive, no scleral icterus, large neck circumference Respiratory: Clear to auscultation bilaterally, no increased work of breathing Cardiovascular: Sinus tachycardia, 2+ bilateral radial pedal pulses Gastrointestinal: Soft, obese, hyperactive bowel sounds Skin: Mold to the left midback with dark pigmentation Musculoskeletal: Dressing in place over right anterior knee incision, trace to 1+ edema right lower extremity, no calf pain Neurological: Alert and oriented, speech is clear, no facial asymmetry, no localizing neurologic deficits on limited exam Psychiatric: Appropriate mood and affect, pleasant and cooperative : Deferred Hematologic/lymphatic: No petechiae, no bruising, no anterior cervical lymphadenopathy Spine: Left paraspinal muscle spasm level T6 through T8 with reproducibility of pain on palpati
--- NOTE | 2021-05-21 14:48 | PM.PNORT ---
Progress Note: A&P Assessment and Plan (1) Status post right knee replacement: Code(s): Z96.651 - Presence of right artificial knee joint Status: Acute Assessment and Plan: Patient is status post TKA. She is doing much better today.Dr. Krishnan also saw an examined patient today. Symptoms are similar to her symptoms after her contralateral TKA a few years ago. Patient is also very anxious. Discussed the typical recovery after TKA with patient. No signs of infection. Dressing dry and intact. No drainage. I recommend she continue her post operative instructions including strict ice and elevation. I recommend elevating her toes above her nose for 40 minutes out of every hour and ice every 20 minutes. She should continue her postop medications. Okay for discharge from orthopaedic standpoint once she is cleared medically. She has a follow up appointment already scheduled. Subjective Subjective Date/Time Seen: 05/21/21 14:48 Patient resting comfortably in bed. Leg elevated and ice. No acute distress. States she is doing much better today. She has not yet had a bowel movement. No other complaints. She has been working with PT and has been walking with the walker. Review of Systems Review of Systems: All systems reviewed & are unremarkable except as noted in HPI and below Exam Narrative: Overweight 61 y/o female. No acute distress. Alert and oriented x3. Dressing dry and intact without drainage. No instability. Moderate swelling. Moderate erythema. Range of motion 5-85 degrees. Calf nontender. Neurologic status intact. No varicosities. Distal pulses palpable. Objective Data Vital Signs Vital Signs: Vital Signs - 24 hr 05/20/21 15:05 05/20/21 16:00 05/20/21 17:45 Temperature 99.2 F 99.0 F Pulse Rate 106 H 106 H Respiratory Rate 18 Blood Pressure 138/67 Pulse Oximetry 95 05/20/21 20:00 05/20/21 21:18 05/20/21 23:20 Temperature 99.9 F H Pulse Rate 112 H 78 Respiratory Rate 17 Blood Pressure 113/65 Pulse Oximetry 96 97 05/21/21 00:00 05/21/21 04:00 05/21/21 08:00 Temperature Pulse Rate 104 H 103 H 99 Respiratory Rate 20 Blood Pressure Pulse Oximetry 100 05/21/21 08:39 Temperature 99.4 F Pulse Rate 99 Respiratory Rate 20 Blood Pressure 144/76 H Pulse Oximetry 100 Intake/Output Intake/Output: Intake & Output 05/18/21 05/19/21 05/20/21 05/21/21 23:59 23:59 23:59 23:59 Intake Total 65 4230 1860 Output Total 600 500 Balance 65 3630 1360 Meds/Results Medications: Active Medications Generic Name Dose Route Start Last Admin Trade Name Freq PRN Reason Stop Dose Admin Acetaminophen 1,000 mg 05/20/21 16:32 Acetaminophen 500 Mg Tablet PO Q6H PRN Pain Rated 1-3 Hydrocodone Bitart/Acetaminophen 2 tab 05/20/21 16:36 05/21/21 12:02 Hydrocodone/Acetaminophen (*Crx) 5-325 Mg Tablet PO 1 tab Q6H PRN Administration Pain Rated 7-10 Hydrocodone Bitart/Acetaminophen 1 tab 05/20/21 16:38 05/21/21 03:53 Hydrocodone/Acetaminophen (*Crx) 5-325 Mg Tablet PO 1 tab Q4H PRN Administration Pain Rated 4-6 Aspirin 81 mg 05/20/21 09:00 05/21/21 08:16 Aspirin 81 Mg Enteric Tablet PO 05/25/21 17:01 81 mg BID LISA Administration Cyclobenzaprine HCl 10 mg 05/20/21 16:32 Cyclobenzaprine Hcl 10 Mg Tablet PO Q8H PRN Spasms Docusate Sodium 100 mg 05/20/21 09:00 05/21/21 08:25 Docusate Sodium 100 Mg Capsule PO 100 mg Q12HR LISA Administration Enoxaparin Sodium 40 mg 05/20/21 09:00 05/21/21 08:26 Enoxaparin 40 Mg/0.4 Ml Syringe SUB-Q Not Given DAILY LISA Hydrochlorothiazide 25 mg 05/20/21 09:00 05/21/21 08:17 Hydrochlorothiazide 25 Mg Tablet PO 25 mg QAM LISA Administration Sodium Chloride 1,000 mls @ 125 mls/hr 05/19/21 23:55 05/21/21 07:07 Normal Saline Iv IV CONT 125 mls/hr .Q8H LISA Administration Menthol/Methyl Salicylate 1 applic 05/20/21 03:10
--- NOTE | 2021-05-21 16:34 | PM.PNORT ---
Progress Note: A&P Assessment and Plan (1) Status post right knee replacement: Code(s): Z96.651 - Presence of right artificial knee joint Status: Acute Additional Plan Knee pain well controlled. Mobilizing well. Complains of constipation. Examination Mild swelling. Expected stiffness. No warmth or erythema. No drainage. Good alignment. Distal neurovascular status intact. Impression Total knee healing appropriately. She is mobilizing well with therapy. Medical workup is negative thus far; she is starting to feel better. Likely discharge home tomorrow. Continue total knee care plan as previously outlined. Subjective Subjective Date/Time Seen: 05/21/21 16:34 Objective Data Vital Signs Vital Signs: Vital Signs - 24 hr 05/20/21 17:45 05/20/21 20:00 05/20/21 21:18 Temperature 37.2 C Pulse Rate 112 H Respiratory Rate Blood Pressure Pulse Oximetry 96 05/20/21 23:20 05/21/21 00:00 05/21/21 04:00 Temperature 37.7 C H Pulse Rate 78 104 H 103 H Respiratory Rate 17 Blood Pressure 113/65 Pulse Oximetry 97 05/21/21 08:00 05/21/21 08:39 05/21/21 16:07 Temperature 37.4 C 37.5 C Pulse Rate 99 99 96 Respiratory Rate 20 20 18 Blood Pressure 144/76 H 141/84 H Pulse Oximetry 100 100 98 Intake/Output Intake/Output: Intake & Output 05/18/21 05/19/21 05/20/21 05/21/21 23:59 23:59 23:59 23:59 Intake Total 65 4230 2860 Output Total 600 500 Balance 65 3630 2360 Meds/Results Medications: Active Medications Generic Name Dose Route Start Last Admin Trade Name Freq PRN Reason Stop Dose Admin Acetaminophen 1,000 mg 05/20/21 16:32 Acetaminophen 500 Mg Tablet PO Q6H PRN Pain Rated 1-3 Hydrocodone Bitart/Acetaminophen 2 tab 05/20/21 16:36 05/21/21 12:02 Hydrocodone/Acetaminophen (*Crx) 5-325 Mg Tablet PO 1 tab Q6H PRN Administration Pain Rated 7-10 Hydrocodone Bitart/Acetaminophen 1 tab 05/20/21 16:38 05/21/21 03:53 Hydrocodone/Acetaminophen (*Crx) 5-325 Mg Tablet PO 1 tab Q4H PRN Administration Pain Rated 4-6 Aspirin 81 mg 05/20/21 09:00 05/21/21 16:10 Aspirin 81 Mg Enteric Tablet PO 05/25/21 17:01 81 mg BID LISA Administration Cyclobenzaprine HCl 10 mg 05/20/21 16:32 Cyclobenzaprine Hcl 10 Mg Tablet PO Q8H PRN Spasms Docusate Sodium 100 mg 05/20/21 09:00 05/21/21 08:25 Docusate Sodium 100 Mg Capsule PO 100 mg Q12HR LISA Administration Enoxaparin Sodium 40 mg 05/20/21 09:00 05/21/21 08:26 Enoxaparin 40 Mg/0.4 Ml Syringe SUB-Q Not Given DAILY LISA Hydrochlorothiazide 25 mg 05/20/21 09:00 05/21/21 08:17 Hydrochlorothiazide 25 Mg Tablet PO 25 mg QAM LISA Administration Sodium Chloride 1,000 mls @ 125 mls/hr 05/19/21 23:55 05/21/21 15:07 Normal Saline Iv IV CONT 125 mls/hr .Q8H LISA Administration Menthol/Methyl Salicylate 1 applic 05/20/21 03:10 05/21/21 08:19 Menthol 10% / Methyl Salicylate 15% 57 Gm Tube TOPICAL 1 applic BID PRN Administration Muscle/Joint Pain Miscellaneous Information 0 each 05/20/21 00:01 Acetaminophen And Tramadol Duplicate Pain Scale 1-3 Please D/C One XX 06/19/21 00:00 [facility] Morphine Sulfate 4 mg 05/19/21 23:52 Morphine Sulfate (*Crx) 4 Mg/Ml Inj IV PUSH Q2H PRN Pain Rated 7-10 Olmesartan 40 mg 05/20/21 09:00 05/21/21 08:16 Olmesartan Medoxomil 20 Mg Tablet PO 40 mg QAM LISA Administration Polyethylene Glycol 17 gm 05/20/21 09:00 05/21/21 08:25 Polyethylene Glycol 3350 17 Gm Powd.Pack PO 17 gm QAM LISA Administration Potassium Chloride 10 meq 05/20/21 08:00 05/21/21 08:15 Potassium Chloride 10 Meq Tablet.Er PO 10 meq DAILY@0800 LISA Administration Prednisone 5 mg 05/20/21 08:00 05/21/21 08:16 Prednisone 5 Mg Tablet PO 06/07/21 08:01 5 mg DAILY@0800 LISA Administration Tramadol HCl 50 mg 05/20/21 16:32 Tramadol Hcl (*Crx) 50
[2021-05-22] VITALS: PULSE 111
[2021-05-22 04:00] VITALS: PULSE 89
[2021-05-22] MEDS: HYDROcodone/acetaminophen (*CRX) 5-325 MG TABLET 1 TAB PO ×2 (04:11→08:03)
[2021-05-22 05:35] LABS: Basophils Absolute Auto 0.1 K/mm3 (0.0-0.1); Basophils Percent Auto 0.5 % (0.2-1.2); Eosinophils Absolute Auto 0.6 K/mm3 (0-0.3); Eosinophils Percent Auto 3.8 % (0-4.4); Hemoglobin 9.1 g/dL (12.0-15.0); Immature Granulocyte Absolute 0.11 K/mm3 (0.00-0.031); Immature Granulocyte Percent A 0.7 % (0-0.5); Lymphocytes Absolute Auto 6.14 K/mm3 (0.9-3.2); Lymphocytes Percent Auto 37.8 % (18.3-44.2); Mean Corpuscular HGB Conc 33.7 g/dl (32-36); Mean Corpuscular Hemoglobin 31.4 pg (26-34); Mean Corpuscular Volume 93.1 fl (80-100); Mean Platelet Volume 8.7 fl (7.4-10.4); Monocytes Absolute Auto 1.7 K/mm3 (0.1-0.6); Monocytes Percent Auto 10.6 % (2.6-8.5); Neutrophils Absolute Auto 7.6 K/mm3 (1.3-6.7); Neutrophils Percent Auto 46.6 % (45.5-73.1); Nucleated Red Blood Cells Absolute Auto 0.1 K/mm3 (0.0-0.012); Nucleated Red Blood Cells Perc 0.4 % (0.0-0.2); Platelet Count Result 486 k/mm3 (150-375); White Blood Count 16.3 K/mm3 (4.5-10.0)
[2021-05-22 05:53] LABS: Alanine Aminotransferase 58 U/L (4-35); Albumin Level 3.8 g/dL (3.5-5.1); Alkaline Phosphatase 99 U/L (38-126); Anion Gap 5 mmol/L (8-16); Aspartate Amino Transferase 69 U/L (14-36); Bilirubin,Total 1.4 mg/dL (0.2-1.3); Blood Urea Nitrogen 10 mg/dL (7-17); Calcium 8.8 mg/dL (8.4-10.2); Carbon Dioxide 29 mmol/L (22-30); Chloride 107 mmol/L (98-107); Estimated CRCL calculation 78 ml/min; Estimated Glomerular Filt Rate > 60; Glucose 107 mg/dL (65-110); Potassium 3.7 mmol/L (3.4-5.0); Sodium 141 mmol/L (137-145)
[2021-05-22 06:00] LABS: CRP 16.2 mg/dL (<1.0)
[2021-05-22 06:23] VITALS: BP 149/90; PULSE 95; RESP 18; TEMP 37.7; O2SAT 98
[2021-05-22 06:37] LABS: Erythrocyte Sedimentation Rate > 140 mm/hr (0-20)
--- NOTE | 2021-05-22 07:47 | PM.DS ---
DS: Admitting Diagnosis Discharge Date 05/22/2021 Admitting Diagnosis 1) SIRS 2) Status post right knee replacement 3) Paraspinal Muscle Spasm DS: Discharge Diagnosis Discharge Diagnosis (1) SIRS (systemic inflammatory response syndrome): Onset Date: ~05/2021 Code(s): R65.10 - Systemic inflammatory response syndrome (SIRS) of non-infectious origin without acute organ dysfunction Status: Acute Assessment and Plan: - Pt's continued signs of systemic inflammation also occurred after her last surgery. This is the reason for the Prednisone 5 mg as ordered by Orthopedics in hopes to suppress the immune and inflammatory response. - Pt's WBC have trended downward. Mild elevation expected as she is currently on steroids. - Inflammatory markers are high, but pt. not symptomatic nor is she having any complaints. - Does not meet SIRS/Sepsis criteria at discharge. - Blood cultures and urine culture negative. - CXR negative for any signs of acute infection. - Pt. clinically improved overall. - Ortho agrees that there is no sign of acute post-operative surgical infection. (2) Status post right knee replacement: Code(s): Z96.651 - Presence of right artificial knee joint Status: Acute Assessment and Plan: - As noted above. - Continue pain medications and outpatient PT as ordered. - Already has follow up appointment. (3) Paraspinal muscle spasm: Code(s): M62.830 - Muscle spasm of back Status: Acute Assessment and Plan: - Supportive care for pain. - Repeat CXR was negative for any acute findings. (4) Constipation: Qualifiers: Constipation type: drug induced constipation Qualified Code(s): K59.03 - Drug induced constipation Code(s): K59.00 - Constipation, unspecified Status: Acute Assessment and Plan: - Pt. was able to have a BM after receiving dose of Lactulose yesterday. DS: Summary Hospital Course Reason for hospitalization: SIRS status post Total knee replacement Hospital Course: This very pleasant 61 year old female patient with significant PMH of HTN, L-S Radiculopathy, PNA status post COVID, Tachycardia and inflammatory response status post Left total knee in 01/2020, Thyroid mass of unknown etiology, presented to the ER on 05/19/21, two days after having her right knee replaced and developing fever, dyspnea and back pain that radiates to the chest. She was febrile at 103 on arrival causing her to come to the ER. The pt. had a previous knee replacement on the other side in 01/2020 and had the same post-operative response. In an effort to prevent it from happening again, Orthopedics placed her on low dose Prednisone for 21 days and she has been taking it. Sources of infection were looked for in Urine, chest, replaced joint, and blood without any growth of bacteria or positive findings. In addition, she was ruled out for both PE and DVT with dopplers and CTA of the chest. She was covered with Rocephin and Azithromycin out of concern for possible developing PNA, that later turned out to be determined a musculoskeletel pain, so the abx were stopped. The pt. was constipated with no BM in 5 days, but was able to have a BM overnight and she is without any distress at this time. The pt. has continued elevated inflammatory markers as with her last knee replacement, but she has been without fever and without any clinical symptoms of SIRS/Sepsis and is stable for discharge at this time. She has no other complaints. She already has a follow up appointment with Orthopedics and she also has the phone number to call and set up outpatient PT. Time spent discussing smoking cessation with patient: more than 10 minutes Status at Discharge Functional status at discharge: independent ambulation Overall status at discharge: patient is back to baseline Time Spent with Patient Time attestation: Total time spent providing and/or coordinating discharge services: Time spe
[2021-05-22] MEDS: polyethylene glycoL 3350 17 GM POWD.PACK PO (08:03)
[2021-05-22] MEDS: DOCUSATE SODIUM 100 MG CAPSULE PO (08:03)
[2021-05-22] MEDS: POTASSIUM CHLORIDE 10 MEQ TABLET.ER PO (08:05)
[2021-05-22] MEDS: predniSONE 5 MG TABLET PO (08:05)
[2021-05-22] MEDS: ASPIRIN 81 MG ENTERIC TABLET PO (08:06)
[2021-05-22] MEDS: OLMESARTAN MEDOXOMIL 20 MG TABLET 40 MG PO (08:06)
[2021-05-22] MEDS: hydroCHLOROthiazide 25 MG TABLET PO (08:06)
== END 2021-05-22 10:15 | disposition home or self-care (01) ==
LOC: ANHED 21:54 → ANH3MED 05-20 00:26
PROVIDERS: Admitting Provider Internal Medicine; Emergency Provider General Practice; PCP Nurse Practitioner; Visit Provider Nurse Practitioner Adult Health
DX: R50.9 Fever, unspecified (principal); R07.9 Chest pain, unspecified; R06.02 Shortness of breath; R65.10 Systemic inflammatory response syndrome (SIRS) of non-infectious origin without acute organ dysfunction; E86.0 Dehydration; M62.830 Muscle spasm of back; R00.0 Tachycardia, unspecified; K59.03 Drug induced constipation; I10 Essential (primary) hypertension; M54.17 Radiculopathy, lumbosacral region; E07.9 Disorder of thyroid, unspecified; Z98.890 Other specified postprocedural states; Z96.653 Presence of artificial knee joint, bilateral; Z20.822 Contact with and (suspected) exposure to COVID-19
CPT/HCPCS: 36415; 71045; 71046; 71275; 80053; 81001; 83605; 83690; 83735; 83880; 84145; 84484; 85025; 85610; 85652; 85730; 86140; 87040; 87086; 87804; 93005; 93971; 96361; 96365; 96367; 96372; 96375; 97110; 97116; 97161; 97165; 97530; 99285; A9270; C9803; G0378; J0131; J0456; J0696; J1650; J2270; J2405; J7030; J7512; Q9967; U0003; U0005

== ENCOUNTER 2021-05-26 13:35 | Outpatient (CLI) | payer OTHER, SELFPAY ==
[2021-05-26 14:19] LABS: Hematocrit 34.6 % (37.0-47.0); Hemoglobin 11.2 g/dL (12.0-15.0); Mean Corpuscular HGB Conc 32.4 g/dl (32-36); Mean Corpuscular Hemoglobin 31.5 pg (26-34); Mean Corpuscular Volume 97.5 fl (80-100); Mean Platelet Volume 8.5 fl (7.4-10.4); Platelet Count Result 847 k/mm3 (150-375); Red Blood Count 3.55 M/mm3 (4.2-5.4); White Blood Count 14.8 K/mm3 (4.5-10.0)
[2021-05-26 14:37] LABS: CRP 4.8 mg/dL (<1.0)
[2021-05-26 14:56] LABS: Erythrocyte Sedimentation Rate 97 mm/hr (0-20)
== END 2021-05-26 13:36 | disposition home or self-care (01) ==
LOC: ANHLAB 13:37
PROVIDERS: PCP Nurse Practitioner; Visit Provider Nurse Practitioner
DX: R65.10 Systemic inflammatory response syndrome (SIRS) of non-infectious origin without acute organ dysfunction (principal)
CPT/HCPCS: 36415; 85027; 85652; 86140

== ENCOUNTER 2021-06-07 12:04 | Outpatient (CLI) | payer OTHER, SELFPAY ==
[2021-06-07 13:13] LABS: Hematocrit 39.2 % (37.0-47.0); Hemoglobin 12.7 g/dL (12.0-15.0); Mean Corpuscular HGB Conc 32.4 g/dl (32-36); Mean Corpuscular Volume 95.6 fl (80-100); Mean Platelet Volume 8.8 fl (7.4-10.4); Platelet Count Result 811 k/mm3 (150-375); White Blood Count 10.3 K/mm3 (4.5-10.0)
[2021-06-07 13:31] LABS: CRP 1.1 mg/dL (<1.0)
[2021-06-07 14:32] LABS: Erythrocyte Sedimentation Rate 29 mm/hr (0-20)
== END 2021-06-07 12:05 | disposition home or self-care (01) ==
LOC: ANHWCLAB 12:06
PROVIDERS: PCP Nurse Practitioner; Visit Provider Nurse Practitioner
DX: R65.10 Systemic inflammatory response syndrome (SIRS) of non-infectious origin without acute organ dysfunction (principal)
CPT/HCPCS: 36415; 85027; 85652; 86140

== ENCOUNTER 2021-07-05 15:25 | Outpatient (CLI) | payer OTHER, SELFPAY ==
[2021-07-05 16:21] LABS: Hematocrit 42.8 % (37.0-47.0); Hemoglobin 14.2 g/dL (12.0-15.0); Mean Corpuscular HGB Conc 33.2 g/dl (32-36); Mean Corpuscular Hemoglobin 30.7 pg (26-34); Mean Corpuscular Volume 92.6 fl (80-100); Platelet Count Result 646 k/mm3 (150-375); Red Blood Count 4.62 M/mm3 (4.2-5.4); Red Cell Distribution Width 12.9 % (11.5-14.5); White Blood Count 9.3 K/mm3 (4.5-10.0)
[2021-07-05 16:34] LABS: CRP 0.6 mg/dL (<1.0)
[2021-07-05 16:44] LABS: Erythrocyte Sedimentation Rate 20 mm/hr (0-20)
== END 2021-07-05 15:26 | disposition home or self-care (01) ==
LOC: ANHWCLAB 15:28
PROVIDERS: PCP Nurse Practitioner; Visit Provider Nurse Practitioner
DX: R65.10 Systemic inflammatory response syndrome (SIRS) of non-infectious origin without acute organ dysfunction (principal)
CPT/HCPCS: 36415; 85027; 85652; 86140

== ENCOUNTER 2021-07-13 15:30 | Outpatient (RCR) | payer OTHER, SELFPAY ==
--- NOTE | 2021-06-01 12:15 | PTOPEVAL ---
Thank you for referring Nelson Monsalve to [facility].? The patient is scheduled to be seen for therapy?2 x/week for 8 weeks. Please review, sign, date and return this plan of care ENEIDA. I agree with and certify that the following plan of care is medically necessary. Referring Physician Date Attending Provider: Armand Krishnan MD Diagnosis right TKR Onset 05/17/21 Additional Evaluation Detail 2 TRINH with 1 railing from garage and no railing at front door. 1 flight of steps to 2nd level. RTW scheduled for 08/11/21. Her goal is RTW by 06/21/21. Subjective Information She is performing HEP 2x/day. Query Text:As Reported By Patient/ She has been using the walker Family at home, but arrived to the clinic with a cane in her right hand. Denies any assistance with ADL's. She reports limitations with daily activities, work task, walking, prolonged standing/sitting, transfers, steps. Prior to surgery she was riding her exercise bike 3x/wk x 20 min. She took hydrocodone and Aleve before therapy. Pain Assessment Right Knee(s) Reported Pain Level 4 Pain Description Cramping,Tightness Pain Frequency Acute Lowest Pain Intensity 4 Greatest Pain Intensity 8 Pain Aggravating Factors Bending,Lifting,Prolonged Position,Sitting,Stair Climbing,Walking,Weight Bearing/Standing Lower Extremity Range of Motion General Lower Extremity Range of Motion Gross Lower Extremity Range of Motion left knee: 0-105 dg Comments Knee Range of Motion Right Knee Flexion Range of Motion - Active 65 Knee Extension Range of Motion - Active -10 Knee Range of Motion Limitations Edema,Muscle Weakness,Pain, Soft Tissue Restriction Lower Extremity Muscle Strength Testing General Lower Extremity Strength Gross Lower Extremity Strength right hip flex:4-/5, ext: 4-/5 , abd: 3+/5 knee ext: 3+/5, ext: 3-/5- tested in available range SLR: 20 dg extensor lag Posture Standing Position Weight Distribution Decreased Wt.Bear on (R) Hip Posture
--- NOTE | 2021-07-08 15:38 | PCPTNOTE ---
Called [employer] on 07/07/21, Spoke with Tristen, faxed over information needed. He stated he would be in contact with the Pt about brace.
--- NOTE | 2021-07-13 16:12 | PCPTNOTE ---
Admitting Provider: Attending Provider: Armand Krishnan MD Patient:Nelson Monsalve Date of :1960 Physical Therapy Discharge Summary Pt referred to therapy due to right TKR 05/17/21. She has attended 16 therapy visits from 06/01/21 to 07/13/21. As a result of skilled therapy services she reports improved pain,improved function at home and at work, improved knee motion and LE strength. She demonstrates improved functional mobility with her ability to transfer from all surfaces, ambulation with and without AD and ability to negotiate steps. She has been provided a HEP and demonstrates understanding and compliance. She has a bike at home she utilizes consistently. LEFS: 93.75% impaired at eval and 46.25% impaired at update. 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 Discussed her lack of progress with functional mobility and knee motion and mobility since her last update a month ago. Discussed attending the gym to build full body endurance and strength and performing her normal activities. Nelson has reached maximal potential with skilled therapy services at this time. She has partially achieved her therapy goals. Recommend she continue with normal daily activities and community mobility and continue with her home program. Will DC skilled PT at this time. Thank you for referring this patient to [facility]. Please review, sign, date and return this discharge summary ENEIDA. I have been updated about the patient's current status and I agree with discharge from the above service at this time. Referring Physician Date
== END 2021-07-14 11:06 | disposition home or self-care (01) ==
LOC: ANHPT 15:30
PROVIDERS: PCP Nurse Practitioner; Visit Provider Orthopaedic Surgery
DX: Z47.1 Aftercare following joint replacement surgery (principal); Z96.651 Presence of right artificial knee joint
CPT/HCPCS: 97014; 97110; 97112; 97116; 97140; 97162; 97530; G0283

== ENCOUNTER 2021-08-16 15:53 | Outpatient (CLI) | payer OTHER, SELFPAY ==
[2021-08-16 16:17] LABS: Basophils Absolute Auto 0.1 K/mm3 (0.0-0.1); Basophils Percent Auto 0.7 % (0.2-1.2); Eosinophils Absolute Auto 0.3 K/mm3 (0-0.3); Eosinophils Percent Auto 2.8 % (0-4.4); Hematocrit 40.4 % (37.0-47.0); Hemoglobin 13.6 g/dL (12.0-15.0); Immature Granulocyte Absolute 0.06 K/mm3 (0.00-0.031); Immature Granulocyte Percent A 0.6 % (0-0.5); Lymphocytes Absolute Auto 4.51 K/mm3 (0.9-3.2); Mean Corpuscular HGB Conc 33.7 g/dl (32-36); Mean Corpuscular Hemoglobin 30.2 pg (26-34); Mean Corpuscular Volume 89.6 fl (80-100); Mean Platelet Volume 8.8 fl (7.4-10.4); Monocytes Absolute Auto 0.8 K/mm3 (0.1-0.6); Monocytes Percent Auto 7.8 % (2.6-8.5); Neutrophils Absolute Auto 4.3 K/mm3 (1.3-6.7); Neutrophils Percent Auto 43.1 % (45.5-73.1); Platelet Count Result 560 k/mm3 (150-375); Red Blood Count 4.51 M/mm3 (4.2-5.4); Red Cell Distribution Width 12.9 % (11.5-14.5)
[2021-08-16 16:31] LABS: Alanine Aminotransferase 12 U/L (6-35); Albumin Level 4.5 g/dL (3.5-5.1); Alkaline Phosphatase 82 U/L (38-126); Anion Gap 6 mmol/L (8-16); Aspartate Amino Transferase 21 U/L (14-36); Bilirubin,Total 0.4 mg/dL (0.2-1.3); Blood Urea Nitrogen 17 mg/dL (7-17); Calcium 9.3 mg/dL (8.4-10.2); Carbon Dioxide 29 mmol/L (22-30); Chloride 109 mmol/L (98-107); Cholesterol 189 mg/dL (0-200); Estimated Glomerular Filt Rate > 60; Glucose 100 mg/dL (65-110); HDL Direct 57 mg/dL; Sodium 144 mmol/L (137-145); Triglycerides 159 mg/dL (<150)
[2021-08-16 16:44] LABS: LDL Cholesterol Direct 92 mg/dL
[2021-08-16 17:03] LABS: Vitamin D 25 Hydroxy 37.6 ng/mL
[2021-08-16 17:13] LABS: Atypical Lymphocytes Present
== END 2021-08-16 15:54 | disposition home or self-care (01) ==
LOC: ANHLAB 15:55
PROVIDERS: PCP Nurse Practitioner; Visit Provider Internal Medicine
DX: E59 Dietary selenium deficiency (principal); I10 Essential (primary) hypertension; Z79.899 Other long term (current) drug therapy; E78.5 Hyperlipidemia, unspecified
CPT/HCPCS: 36415; 80053; 80061; 82306; 85025

== ENCOUNTER 2021-10-13 13:59 | Outpatient (CLI) | payer OTHER, SELFPAY ==
--- NOTE | ~2021-10-13 | MM_ITS ---
EXAMINATION: MM screening cat BI w chandler HISTORY: Screening TECHNIQUE: Craniocaudal and mediolateral oblique 3-D tomosynthesis images were obtained and synthetic 2-D images were generated. CAD analysis was submitted and interpreted. COMPARISON: Comparison to multiple prior studies sequentially, with oldest reviewed study dated 09/19. BREAST PARENCHYMAL COMPOSITION: There are scattered areas of fibroglandular density. FINDINGS: There is no evidence of suspicious mass, calcification, or architectural distortion to sugg est malignancy in either breast. There has been no suspicious interval change. IMPRESSION: 1. No mammographic evidence of malignancy. 2. Recommend routine screening mammography in one year. BI-RADS Category 1: Negative Reviewed, dictated and finalized at location A.
== END 2021-10-13 14:00 | disposition home or self-care (01) ==
PROVIDERS: PCP Internal Medicine; Visit Provider Nurse Practitioner
DX: Z12.31 Encounter for screening mammogram for malignant neoplasm of breast (principal)
CPT/HCPCS: 77063; 77067

== ENCOUNTER 2021-11-11 12:15 | Outpatient (CLI) | payer OTHER, SELFPAY ==
--- NOTE | ~2021-11-11 | XR_ITS ---
EXAMINATION: XR knee RT 3V DATE: 11/11/2021 12:35 INDICATION: Encounter for other orthopedic aftercare. TECHNIQUE: 3 views of right knee were obtained. COMPARISON: Right knee radiographs 07/05/2021 FINDINGS: There is a total right knee arthroplasty with patellar resurfacing in near-anatomic alignme nt. No periprosthetic lucency to suggest loosening or infection. No fracture. There is a small knee j oint effusion. IMPRESSION: 1. Total right knee arthroplasty in near-anatomic alignment. 2. Small right knee joint effusion. Reviewed, dictated and finalized at location A.
== END 2021-11-11 12:16 | disposition home or self-care (01) ==
LOC: ANHIMG 12:20
PROVIDERS: PCP Internal Medicine; Visit Provider Internal Medicine
DX: Z47.89 Encounter for other orthopedic aftercare (principal); M25.461 Effusion, right knee
CPT/HCPCS: 73562

== ENCOUNTER 2021-11-26 11:33 | Outpatient (CLI) | payer OTHER, SELFPAY ==
--- NOTE | ~2021-11-26 | XR_ITS ---
EXAMINATION: XR chest 2V DATE: 11/26/2021 11:49 INDICATION: Cough TECHNIQUE: PA and lateral views of the chest are obtained. COMPARISON: 05/20/2021 FINDINGS: The lungs are free of acute opacities. No pleural effusion or pneumothorax. The cardiomedia stinal silhouette is normal. There is moderate thoracic spondylosis. IMPRESSION: 1. No acute cardiopulmonary abnormality. Reviewed, dictated and finalized at location B.
== END 2021-11-26 11:34 | disposition home or self-care (01) ==
LOC: ANHIMG 11:35
PROVIDERS: PCP Internal Medicine; Visit Provider Nurse Practitioner
DX: R05.9 Cough, unspecified (principal)
CPT/HCPCS: 71046

== ENCOUNTER 2022-03-10 11:02 | Outpatient (CLI) | payer OTHER, SELFPAY ==
[2022-03-10 12:19] LABS: Hematocrit 43.4 % (37.0-47.0); Hemoglobin 14.4 g/dL (12.0-15.0); Mean Corpuscular HGB Conc 33.2 g/dl (32-36); Mean Corpuscular Hemoglobin 30.8 pg (26-34); Mean Corpuscular Volume 92.9 fl (80-100); Mean Platelet Volume 9.6 fl (7.4-10.4); Platelet Count Result 607 k/mm3 (150-375); Red Blood Count 4.67 M/mm3 (4.2-5.4); Red Cell Distribution Width 13.3 % (11.5-14.5); White Blood Count 10.8 K/mm3 (4.5-10.0)
[2022-03-10 12:28] LABS: Alanine Aminotransferase 25 U/L (6-35); Albumin Level 4.5 g/dL (3.5-5.1); Alkaline Phosphatase 93 U/L (38-126); Anion Gap 9 mmol/L (8-16); Aspartate Amino Transferase 51 U/L (14-36); Bilirubin,Total 0.6 mg/dL (0.2-1.3); Blood Urea Nitrogen 13 mg/dL (7-17); Calcium 9.1 mg/dL (8.4-10.2); Carbon Dioxide 29 mmol/L (22-30); Chloride 106 mmol/L (98-107); Estimated Glomerular Filt Rate > 60; Glucose 107 mg/dL (65-110); Potassium 3.7 mmol/L (3.4-5.0); Sodium 144 mmol/L (137-145)
== END 2022-03-10 11:03 | disposition home or self-care (01) ==
LOC: ANHWCLAB 11:03
PROVIDERS: PCP Internal Medicine; Visit Provider Nurse Practitioner
DX: D75.839 Thrombocytosis, unspecified (principal); I10 Essential (primary) hypertension
CPT/HCPCS: 36415; 80053; 85027

== ENCOUNTER 2022-03-23 13:35 | Outpatient (CLI) | payer OTHER, SELFPAY ==
--- NOTE | ~2022-03-23 | CT_ITS ---
EXAMINATION: CTA chest PE protocol DATE: 03/23/2022 14:01 INDICATION: Recent COVID infection presenting with right-sided chest pain and shortness of breath TECHNIQUE: Computed tomography (CT) pulmonary angiogram of the chest was performed with 100 mL Omnipa que-350 intravenous contrast. Additional 3D reconstructions utilizing coronal maximum intensity proje ction (MIP) were performed. Automated exposure control and iterative reconstruction technique were em ployed. The dose-length product was 420.01 mGy-cm. COMPARISON: 05/29/2021 FINDINGS: Good contrast opacification of the pulmonary arteries. There is mild streak artifact from dense contr ast in the superior vena cava and right atrium. Mild scattered respiratory motion artifact which does not significantly limit evaluation. No pulmonary embolism. There is a new 7 mm nodule with somewhat ill-defined groundglass margins in the superior segment of the right upper lobe. Minimal dependent at electasis in the bilateral lower lobes. No other lung disease, pulmonary edema or pleural effusion. H eart size is normal. No pericardial effusion. Thoracic aorta is normal in caliber with no dissection. No pathologically enlarged axillary lymphadenopathy. The visualized upper abdomen is unremarkable. M ild thoracic spondylosis. IMPRESSION: 1. No pulmonary embolism. 2. New indeterminate 7 mm nodule in the superior segment of the right upper lobe which could be infec tious, inflammatory or malignant in etiology. Recommend 3 month follow-up low-dose noncontrast chest CT. Reviewed, dictated and finalized at location A. CY LOAN CALCULATOR IMPRESSION: 1. No pulmonary embolism. 2. New indeterminate 7 mm nodule in the superior segment of the right upper lob e which could be infectious, inflammatory or malignant in etiology. Recommend 3 month follow-up low-dose noncontrast chest CT.
== END 2022-03-23 13:36 | disposition home or self-care (01) ==
LOC: ANHIMG 13:36
PROVIDERS: PCP Internal Medicine; Visit Provider Nurse Practitioner
DX: R07.9 Chest pain, unspecified (principal); R91.1 Solitary pulmonary nodule
CPT/HCPCS: 71275; Q9967

== ENCOUNTER 2022-05-13 09:55 | Outpatient (CLI) | payer OTHER, SELFPAY ==
--- NOTE | ~2022-05-13 | XR_ITS ---
Right Knee Technique: AP, lateral, and sunrise views were obtained. Clinical History: Pain COMPARISON: 11/11/2021 Findings: No fracture or dislocation is seen. Knee arthroplasty hardware is unchanged. Soft tissues a re unremarkable. No joint effusion is seen. Impression: No acute abnormality. Knee arthroplasty hardware in place. Reviewed, dictated and finalized at location . LINE COUNSELOR Impression: No acute abnormality. Knee arthroplasty hardware in place.
== END 2022-05-13 09:56 | disposition home or self-care (01) ==
PROVIDERS: PCP Internal Medicine; Visit Provider Orthopaedic Surgery
DX: Z47.89 Encounter for other orthopedic aftercare (principal)
CPT/HCPCS: 73562

== ENCOUNTER 2022-06-23 13:51 | Outpatient (CLI) | payer OTHER, SELFPAY ==
--- NOTE | ~2022-06-23 | CT_ITS ---
EXAMINATION: CT diagnostic chest wo con DATE: 06/23/2022 14:09 INDICATION: Pulmonary nodule TECHNIQUE: Computed tomography (CT) of the chest was performed without intravenous contrast. The dose -length product (DLP) was 109.84 mGy-cm. Automated exposure control and iterative reconstruction tech nique were employed. COMPARISON: 03/23/2022, 05/19/2021, 09/05/2019, 01/29/2006 FINDINGS: There is a 9 mm x 7 mm nodule in the right lower lobe on image 68. The margins of the nodul e are indistinct and the nodule demonstrates slow interval increase in size over multiple prior angela rison examinations. The lungs are free of acute opacities. No pleural effusion or pneumothorax. No pa thologically enlarged thoracic lymph nodes are identified. The heart size is normal. There is mild th oracic spondylosis. IMPRESSION: 1. Indeterminate nodule of the right lower lobe. CT-guided biopsy is recommended. Reviewed, dictated and finalized at location F. IMPRESSION: 1. Indeterminate nodule of the right lower lobe. CT-guided biopsy is recommende dMichael
== END 2022-06-23 13:52 | disposition home or self-care (01) ==
PROVIDERS: PCP Internal Medicine; Visit Provider Nurse Practitioner
DX: R91.1 Solitary pulmonary nodule (principal)
CPT/HCPCS: 71250

== ENCOUNTER 2022-09-23 14:55 | Outpatient (CLI) | payer OTHER, SELFPAY ==
[2022-09-23 16:18] LABS: Alanine Aminotransferase 20 U/L (6-35); Albumin Level 4.2 g/dL (3.5-5.1); Alkaline Phosphatase 74 U/L (38-126); Anion Gap 6 mmol/L (8-16); Aspartate Amino Transferase 25 U/L (14-36); Bilirubin,Total 0.5 mg/dL (0.2-1.3); Blood Urea Nitrogen 12 mg/dL (7-17); Calcium 9.2 mg/dL (8.4-10.2); Carbon Dioxide 32 mmol/L (22-30); Chloride 104 mmol/L (98-107); Cholesterol 187 mg/dL (0-200); Estimated Glomerular Filt Rate > 60; Glucose 112 mg/dL (65-110); HDL Direct 51 mg/dL; Potassium 3.9 mmol/L (3.4-5.0); Sodium 142 mmol/L (137-145); Triglycerides 169 mg/dL (<150)
[2022-09-23 16:29] LABS: LDL Cholesterol Direct 89 mg/dL
[2022-09-23 17:23] LABS: Vitamin D 25 Hydroxy 31.4 ng/mL
== END 2022-09-23 14:56 | disposition home or self-care (01) ==
LOC: ANHLAB 14:57
PROVIDERS: PCP Nurse Practitioner; Visit Provider Nurse Practitioner
DX: E78.5 Hyperlipidemia, unspecified (principal); E55.9 Vitamin D deficiency, unspecified; I10 Essential (primary) hypertension; Z79.899 Other long term (current) drug therapy
CPT/HCPCS: 36415; 80053; 80061; 82306

== ENCOUNTER 2022-12-29 14:22 | Outpatient (CLI) | payer OTHER, SELFPAY ==
--- NOTE | ~2022-12-29 | CT_ITS ---
CT Scan of the Chest without Contrast: Clinical Indication: Solitary pulmonary nodule Technique: Contiguous sections were acquired throughout the chest without intravenous contrast. Dose reduction technique was used on this scan by utilizing automated exposure control and iterative recon struction technique. The dose-length product (DLP) was 95.17 mGy-cm. COMPARISON: 06/23/2022 Findings: There is no evidence of any significant mediastinal, hilar or axillary lymphadenopathy. The mediastin al soft tissues appear normal. There is no evidence of pleural or pericardial effusion. Stable 9 mm right lower lobe peripheral pulmonary nodule is axial image 63). Images through the upper abdomen reveal no abnormalities. Impression: 9 mm right lower lobe pulmonary nodule is unchanged from most recent prior exam. Reviewed, dictated and finalized at location . Impression: 9 mm right lower lobe pulmonary nodule is unchanged from most recent prior exam .
== END 2022-12-29 14:23 | disposition home or self-care (01) ==
PROVIDERS: PCP Nurse Practitioner; Visit Provider Nurse Practitioner
DX: R91.1 Solitary pulmonary nodule (principal)
CPT/HCPCS: 71250

== ENCOUNTER 2023-03-15 15:07 | Outpatient (CLI) | payer OTHER, SELFPAY ==
[2023-03-15 17:05] LABS: Alanine Aminotransferase 16 U/L (6-35); Albumin Level 4.7 g/dL (3.5-5.1); Alkaline Phosphatase 89 U/L (38-126); Anion Gap 11 mmol/L (8-16); Aspartate Amino Transferase 41 U/L (14-36); Bilirubin,Total 0.9 mg/dL (0.2-1.3); Blood Urea Nitrogen 14 mg/dL (7-17); Carbon Dioxide 28 mmol/L (22-30); Chloride 103 mmol/L (98-107); Cholesterol 224 mg/dL (0-200); Estimated Glomerular Filt Rate > 60; Glucose 99 mg/dL (65-110); HDL Direct 61 mg/dL; Potassium 3.5 mmol/L (3.4-5.0); Sodium 142 mmol/L (137-145); Triglycerides 99 mg/dL (<150)
[2023-03-15 17:16] LABS: LDL Cholesterol Direct 111 mg/dL
[2023-03-15 17:50] LABS: Vitamin D 25 Hydroxy 29.3 ng/mL
== END 2023-03-15 15:08 | disposition home or self-care (01) ==
PROVIDERS: PCP Nurse Practitioner; Visit Provider Nurse Practitioner
DX: E55.9 Vitamin D deficiency, unspecified (principal); I10 Essential (primary) hypertension; Z00.00 Encounter for general adult medical examination without abnormal findings
CPT/HCPCS: 36415; 80053; 80061; 82306

== ENCOUNTER 2023-03-23 09:03 | Outpatient (CLI) | payer OTHER, SELFPAY ==
--- NOTE | ~2023-03-23 | PE_ITS ---
EXAMINATION: PET skull to mid thigh DATE: 03/23/2023 11:21 INDICATION: Right lower lobe pulmonary nodule. TECHNIQUE: Blood glucose level was 96 mg/dL. 9.652 mCi of 18-fluorodeoxyglucose (18-FDG) was administ ered i.v. Low dose computed tomography (CT) images were acquired from the base of the brain to the pr oximal thighs for attenuation correction and anatomic localization. Automated exposure control was em ployed. Dose-length product (DLP) was 861 mGy-cm. Positron emission tomography (PET) images were acqu ired in the same distribution. COMPARISON: Chest CT 12/29/2022, 09/05/19 FINDINGS: Head/neck: There are no pathologically enlarged lymph nodes. Chest: There is an 8 mm nodule in right lower lobe without increased activity. There is mild atelecta sis bilaterally. No pleural effusion. Cardiomegaly is noted. No pericardial effusion. There is mild m ediastinal lymphadenopathy without increased activity, likely reactive. Abdomen/pelvis/proximal thighs: The liver, gallbladder, and pancreas are normal. The spleen is absent . The adrenal glands and kidneys are normal. There are no dilated loops of bowel. The appendix is nor mal. There are no pathologically enlarged lymph nodes. There is no free intraperitoneal fluid. There is no osseous malignancy. IMPRESSION: 1. 8 mm pulmonary nodule without increased activity, stable from 09/05/2019, likely benign. Reviewed, dictated and finalized at location A. OYEE BENEFITS INSURANCE AGENT IMPRESSION: 1. 8 mm pulmonary nodule without increased activity, stable from 09/05/2019, lik thai benign.
[2023-03-23 09:22] LABS: Glucose Point of Care 96 mg/dl (65-105)
== END 2023-03-23 09:04 | disposition home or self-care (01) ==
PROVIDERS: PCP Nurse Practitioner; Visit Provider Nurse Practitioner
DX: R91.1 Solitary pulmonary nodule (principal)
CPT/HCPCS: 78815; A9552

== ENCOUNTER 2023-03-23 11:47 | Outpatient (CLI) | payer OTHER, SELFPAY ==
[2023-03-23 13:15] LABS: Hematocrit 43.2 % (37.0-47.0); Mean Corpuscular HGB Conc 32.4 g/dl (32-36); Mean Corpuscular Hemoglobin 30.3 pg (26-34); Mean Corpuscular Volume 93.5 fl (80-100); Mean Platelet Volume 9.1 fl (7.4-10.4); Platelet Count Result 576 k/mm3 (150-375); Red Blood Count 4.62 M/mm3 (4.2-5.4); Red Cell Distribution Width 13.1 % (11.5-14.5); White Blood Count 10.7 K/mm3 (4.5-10.0)
== END 2023-03-23 11:48 | disposition home or self-care (01) ==
LOC: ANHLAB 11:49
PROVIDERS: PCP Nurse Practitioner; Visit Provider Nurse Practitioner
DX: D75.839 Thrombocytosis, unspecified (principal)
CPT/HCPCS: 36415; 85027

== ENCOUNTER 2023-03-23 14:43 | Outpatient (CLI) | payer OTHER, SELFPAY ==
--- NOTE | ~2023-03-23 | MM_ITS ---
EXAMINATION: MM screening [facility] BI w chandler HISTORY: Screening mammogram TECHNIQUE: Craniocaudal and mediolateral oblique 3-D tomosynthesis images were obtained and synthetic 2-D images were generated. CAD analysis was submitted and interpreted. COMPARISON: 10/13/2021, 09/17/2020, 02/14/2019, 10/19/2016 BREAST PARENCHYMAL COMPOSITION: There are scattered areas of fibroglandular density. FINDINGS: A chronic low-density mass is present in the posterior third of the slightly inner right br east, considered benign given the lack of interval change. No suspicious mass, calcification, or arch itectural distortion are identified in either breast to suggest malignancy. There has been no suspici ous interval change. IMPRESSION: 1. No mammographic evidence of malignancy. 2. Recommend routine screening mammography in one year. BI-RADS Category 2: Benign finding(s). Reviewed, dictated and finalized at location A. MILLER
== END 2023-03-23 14:44 | disposition home or self-care (01) ==
LOC: ANHIMG 14:45
PROVIDERS: PCP Nurse Practitioner; Visit Provider Nurse Practitioner
DX: Z12.31 Encounter for screening mammogram for malignant neoplasm of breast (principal)
CPT/HCPCS: 77063; 77067

== ENCOUNTER 2023-05-24 10:35 | Outpatient (CLI) | payer OTHER, SELFPAY ==
[2023-05-24 11:02] LABS: Basophils Absolute Auto 0.1 K/mm3 (0.0-0.1); Basophils Percent Auto 0.8 % (0.2-1.2); Eosinophils Absolute Auto 0.5 K/mm3 (0-0.3); Eosinophils Percent Auto 5.9 % (0-4.4); Hematocrit 43.7 % (37.0-47.0); Hemoglobin 14.5 g/dL (12.0-15.0); Immature Granulocyte Absolute 0.02 K/mm3 (0.00-0.031); Immature Granulocyte Percent A 0.2 % (0-0.5); Lymphocytes Absolute Auto 3.46 K/mm3 (0.9-3.2); Lymphocytes Percent Auto 39.1 % (18.3-44.2); Mean Corpuscular HGB Conc 33.2 g/dl (32-36); Mean Corpuscular Hemoglobin 30.3 pg (26-34); Mean Corpuscular Volume 91.2 fl (80-100); Mean Platelet Volume 8.7 fl (7.4-10.4); Monocytes Absolute Auto 0.6 K/mm3 (0.1-0.6); Monocytes Percent Auto 6.8 % (2.6-8.5); Neutrophils Absolute Auto 4.2 K/mm3 (1.3-6.7); Neutrophils Percent Auto 47.2 % (45.5-73.1); Platelet Count Result 552 k/mm3 (150-375); Red Blood Count 4.79 M/mm3 (4.2-5.4); Red Cell Distribution Width 12.7 % (11.5-14.5); White Blood Count 8.9 K/mm3 (4.5-10.0)
[2023-05-24 11:11] LABS: Alanine Aminotransferase 16 U/L (6-35); Albumin Level 4.3 g/dL (3.5-5.1); Alkaline Phosphatase 83 U/L (38-126); Anion Gap 8 mmol/L (8-16); Aspartate Amino Transferase 28 U/L (14-36); Bilirubin,Total 0.7 mg/dL (0.2-1.3); Blood Urea Nitrogen 19 mg/dL (7-17); Calcium 9.7 mg/dL (8.4-10.2); Carbon Dioxide 29 mmol/L (22-30); Chloride 109 mmol/L (98-107); Estimated Glomerular Filt Rate > 60; Glucose 96 mg/dL (65-110); Potassium 3.9 mmol/L (3.4-5.0); Sodium 146 mmol/L (137-145)
== END 2023-05-24 10:36 | disposition home or self-care (01) ==
LOC: ANHLAB 10:36
PROVIDERS: PCP Nurse Practitioner; Visit Provider Internal Medicine Hematology & Oncology
DX: D58.0 Hereditary spherocytosis (principal)
CPT/HCPCS: 36415; 80053; 85025

== ENCOUNTER 2023-10-19 15:15 | Outpatient (RCR) | payer OTHER, SELFPAY ==
--- NOTE | 2023-09-28 13:43 | OPREHPOC ---
Outpatient Therapy Plan of Care This is a Multidisciplinary Plan of Care that may contain components documented by all disciplines (PT, OT, and ST.) PT Problem 1 PT Problem #1 Knowledge Deficit PT Goal 1 Goal 1. Patient will perform independent HEP Target Visit 3 PT Problem 2 PT Problem #2 Impaired Strength PT Goal 1 Goal 1. Improve pelvic floor strength to 4/5 to decrease symptoms of prolapse 2. Improve pelvic floor endurance to 10 seconds Target Visit 6 PT Problem 3 PT Problem #3 Impaired Functional ADLs PT Goal 1 Goal 1. Patient will report no limitation with typical standing or lifting activities from prolapse Target Visit 6
--- NOTE | 2023-09-28 13:43 | PTOPEVAL1 ---
Assessment and note entered by Natalie Key DPT Evaluation Information Assessment Status Evaluation Diagnosis n81.89 ICD-10 Condition Codes (PT) Weakness R53.1 Subjective Information Pt reports she has been diagnosed with a uterine prolapse. Notices it more with prolonged standing, having a BM, and heavy lifting. Will push it back up . Denies pain or urinary incontinence. Can hold urge to void unlimited amounts of time. Voids 3-4 times a day and does not wake to void. BM once a day, denies incontinence. Denies pelvic pain. Pt has been 3 times and 3 vaginal deliveries. Tearing with her first child. No b/b issues or ENGRAVER BLOCK history. 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 Previously no issues from prolapse regarding lifting, standing, etc. Patient goal: strengthen core and support prolapse Returns to MD in a few months. Reported Pain Level Pain Score 0: Self Report Assessment PT Clinical Summary The patient is presenting to skilled therapy with a pelvic organ prolapse. She presents with decreased core and pelvic floor strength and endurance which are contributing to increased prolapse symptoms with standing, lifting, and BM. She will highly benefit from therapy to address these impairments in order to safely return to prior level of function. Plan of Care Interventions Manual Therapy,Neuro Re-education,Patient/ Caregiver Education,Therapeutic Activities, Therapeutic Exercise PT Services Indicated Yes Treatment Frequency and 1 time a week for 6 visits Duration These treatments will address the objective and functional deficits as defined above. The patient will be advanced safely and appropriately in order for the patient to progress towards his/her prior level of function. Additional exercises will be introduced and as well as a comprehensive home exercise program upon discharge, if needed, ?to ensure carryover of functional gains achieved in the clinic. This treatment plan has been reviewed and agreement upon by the patient.
--- NOTE | 2023-10-26 15:16 | PCPTNOTE ---
Patient called to cancel appointment 10/26/23 due to personal conflict
--- NOTE | 2023-11-02 15:24 | PCPTNOTE ---
Patient did not show up for appointment 11/02/23. Left voicemail to reschedule.
--- NOTE | 2023-12-07 09:53 | PTOPDC ---
Assessment and note entered by Natalie Key DPReena Evaluation Information Assessment Status Discharge - Pt Not Present Diagnosis n81.89 ICD-10 Condition Codes (PT) Weakness R53.1 Subjective Information - Assessment PT Clinical Summary The patient has not attended therapy since 10/19/23. She will be discharged this date and require a new script to resume in the future. Plan of Care PT Services Indicated No
== END 2023-12-07 13:01 | disposition home or self-care (01) ==
LOC: ANHPT 15:15
PROVIDERS: PCP Nurse Practitioner; Visit Provider Obstetrics & Gynecology
DX: N81.89 Other female genital prolapse (principal)
CPT/HCPCS: 97112; 97161; 97530

== ENCOUNTER 2023-11-27 13:06 | Outpatient (CLI) | payer OTHER, SELFPAY ==
[2023-11-27 14:03] LABS: Basophils Absolute Auto 0.1 K/mm3 (0.0-0.1); Basophils Percent Auto 0.4 % (0.2-1.2); Eosinophils Percent Auto 0.2 % (0-4.4); Hematocrit 41.7 % (37.0-47.0); Hemoglobin 14.1 g/dL (12.0-15.0); Immature Granulocyte Absolute 0.08 K/mm3 (0.00-0.031); Immature Granulocyte Percent A 0.6 % (0-0.5); Lymphocytes Absolute Auto 2.79 K/mm3 (0.9-3.2); Lymphocytes Percent Auto 19.8 % (18.3-44.2); Mean Corpuscular HGB Conc 33.8 g/dl (32-36); Mean Corpuscular Hemoglobin 31.1 pg (26-34); Mean Corpuscular Volume 91.9 fl (80-100); Mean Platelet Volume 9.1 fl (7.4-10.4); Monocytes Absolute Auto 0.6 K/mm3 (0.1-0.6); Monocytes Percent Auto 4.4 % (2.6-8.5); Neutrophils Absolute Auto 10.5 K/mm3 (1.3-6.7); Neutrophils Percent Auto 74.6 % (45.5-73.1); Platelet Count Result 619 k/mm3 (150-375); Red Blood Count 4.54 M/mm3 (4.2-5.4); Red Cell Distribution Width 12.8 % (11.5-14.5); White Blood Count 14.1 K/mm3 (4.5-10.0)
== END 2023-11-27 13:07 | disposition home or self-care (01) ==
LOC: ANHLAB 13:08
PROVIDERS: PCP Nurse Practitioner; Visit Provider Internal Medicine Hematology & Oncology
DX: D58.0 Hereditary spherocytosis (principal)
CPT/HCPCS: 36415; 85025

== ENCOUNTER 2024-04-11 08:53 | Outpatient (CLI) | payer OTHER, SELFPAY ==
--- NOTE | ~2024-04-11 | US_ITS ---
EXAMINATION: US soft tissue head and neck DATE: 04/11/2024 09:57 INDICATION: Left neck lump. Localized swelling, mass and lump, trunk. TECHNIQUE: Multiple grayscale and Doppler ultrasound images of the head and neck were obtained. COMPARISON: PET/CT 03/23/2023 FINDINGS: There is no abnormal mass or lymphadenopathy in the patient's area of concern in left supra clavicular region. IMPRESSION: 1. No abnormal mass or lymphadenopathy in the patient's area of concern in left supraclavicular regio n. Reviewed, dictated and finalized at location A. TECH IMPRESSION: 1. No abnormal mass or lymphadenopathy in the patient's area of concern in left supraclavicular region.
--- NOTE | ~2024-04-11 | US_ITS ---
EXAMINATION: US abdomen limited DATE: 04/11/2024 09:57 INDICATION: Right upper quadrant abdominal pain TECHNIQUE: Multiple grayscale and Doppler ultrasound images of the abdomen were obtained. COMPARISON: None FINDINGS: The visualized portions of the pancreatic body is normal in appearance. Persistent pancreatic head an d tail are obscured by shadowing bowel gas. Liver has normal echogenicity and contour, with a smooth surface. No liver lesion identified. No intrahepatic biliary duct dilation suspected. Portal venous f low was seen in the hepatopetal, normal direction and has normal Doppler waveform. Visualized portion of the proximal to mid abdominal aorta is normal measuring up to 1.5 cm in maximal diameter. The vis ualized proximal inferior vena cava is also normal. There is a 9 mm echogenic and shadowing gallstone in the dependent aspect of the otherwise normal gallbladder. The common bile duct measures 2-3 mm, w hich is normal. Sonographic Moore sign was reported as negative by the city councilman. The right kidney measures 9.7 x 4.1 x 5.5 cm with normal contour and echogenicity and with no hydronephrosis. IMPRESSION: 1. Cholelithiasis with no biliary ductal dilation or findings of acute cholecystitis. Reviewed, dictated and finalized at location B. ING SUPERVISOR IMPRESSION: 1. Cholelithiasis with no biliary ductal dilation or findings of acute cholecys titis.
--- OUTSIDE RECORDS SUMMARY | 2024-04-11 09:21 | XMS_ITS | Clinical Summary ---
Author Organization [facility] Address [address] [place] [id number] Care Team Providers Care Application Project Leader Name Role Phone Luis Gillis DO Primary Care Provider [phone] Allergies No known active allergies Medications potassium chloride 10 mEq/100 mL Active losartan (COZAAR) 100 mg tablet Take 125 mg by mouth daily Active potassium chloride ER 10 mEq CR tablet 2 Active erythromycin (ILOTYCIN) ophthalmic ointment 3 Active tobramycin (TOBREX) 0.3 % ophthalmic solution INSTILL 1 DROP IN LEFT EYE EVERY 4 HOURS 3 Active allopurinoL (ZYLOPRIM) 300 mg tablet Take 1 tablet (300 mg total) by mouth daily 4 Active aspirin 81 mg enteric coated tablet Take 1 tablet (81 mg total) by mouth daily Active azithromycin (ZITHROMAX) 250 mg tablet 4 Active benzonatate (TESSALON) 200 mg capsule TAKE 1 CAPSULE BY MOUTH THREE TIMES DAILY NEEDED FOR COUGH 4 Active hydroxyurea (HYDREA) 500 mg capsule Take 1 capsule (500 mg total) by mouth daily 4 Active methylPREDNISol one (MEDROL DOSEPACK) 4 mg Dosepack FOLLOW PACKAGE DIRECTIONS 4 Active olmesartan-hydr ochlorothiazide (BENICAR HCT) 40-25 mg per tablet 4 Active Active Problems Problem Noted Date Diagnosed Date Hx of LASIK 01/08/2024 Assessment & Plan (01/08/2024 1:32 PM CDT): No complications, monitor PVD (posterior vitreous detachment), right 01/07 Assessment & Plan (01/08/2024 1:33 PM CDT): Newly noted PVD right eye (OD), no retinal holes/tears/detachments w NYLON MACHINE OPERATOR. Educated on findings and symptoms. Educated symptoms typically improve w PVD. Educated to RTC STAT w any flashes, many floaters, or curtain over vision. Thyroid cyst 05/01/2019 Encounters Date Type Department Care Team Description 04/09/2024 3:30 PM INGOT CAR OPERATOR Clinical Support Safety Stop [address] [place] [id number] 04/05/2024 1:05 PM INGOT CAR OPERATOR - 04/05/2024 11:59 PM INGOT CAR OPERATOR Hospital Encounter [facility] [address] [place] [address] Thyroid cyst Discharge Disposition: Discharge to home or self care from Last 3 Months Surgical History Surgery Date Site/Laterality Comments LASIK SPLENECTOMY, TOTAL Medical History Medical History Date Comments Hypertension Family History Medical History Relation Name Comments Hypertension Father Rashid Mendes Diabetes Mother Cindi Mendes Hypertension Mother Cindi Mendes Stroke Mother Cindi Mendes Relation Name Status Comments Father Rashid Mendes Mother Cindi Mendes Social History Tobacco Use Types Packs/Day Years Used Date Smoking Tobacco: Never Smokeless Tobacco: Never Tobacco Cessation:Counseling Given: Not Answered Alcohol Use Standard Drinks/Week Comments Yes 0 (1 standard drink = 0.6 oz pur e alcohol) Comments Unknown Sex and Gender Information Value Date Recorded Sex Assigned at Not on file Legal Sex Female 4:00 PM INGOT CAR OPERATOR Gender Identity Not on file Sexual Orientation Not on file Obstetrics History Last Filed Vital Signs Vital Sign Reading Time Taken Comments Blood Pressure 142/82 04/30/2019 11:53 AM INGOT CAR OPERATOR Pulse 73 04/30/2019 11:53 AM INGOT CAR OPERATOR Temperature - - Respiratory Rate - - Oxygen Saturation - - Inhaled Oxygen Concentration - - Weight 86.2 kg (190 lb) 01/05/2023 3:47 PM CDT Height 170.2 cm (5' 7 ) 01/05/2023 3:47 PM CDT Body Mass Index 29.76 01/05/2023 3:47 PM CDT Plan of Treatment Health Maintenance Due Date Last Done Comments Breast Cancer Screening-Mammogram 1962 Cervical Cancer Screening 1962 Colon Cancer Screening-Colonoscopy 1962 Depression Screening 1962 Hepatitis C Screening 1962 Pneumococcal vaccine <65 (1 of 2 - PCV) 1968 DTaP/Tdap/Td Vaccine (1 - Tdap) 1973 Hepatitis B Screening 1980 Regular Well Visit/Exam 18-64 1980 Zoster Vaccine (1 of 2) 1981 Influenza Vaccine (#1) 2023 Procedures Procedure Name Priority Date/Time Associated Diagnosis Comments US THYROID Schedule Routine, Read Routine (OP Routine) 04/05/2024 3:21 PM INGOT CAR OPERATOR Thyroid cyst from Last 3 Months Results * US Thyroid (04/05/2024 3:21 PM INGOT CAR OPERATOR) Anatomical Region Laterality Modality Head and Neck N/A Ultrasound 04/05/2024 3:33 PM INGOT CAR OPERATOR Impressions 04/05/2024 3:33 PM INGOT CAR OPERATOR 1. Recommendations regarding management of described nodules are included above. 2. Targeted sonographic views overlying an area of palpable concern within the left neck showed no suspicious cystic or solid mass. ACR TI-RADS recommendations FNA should only be recommended on a maximum of 2 nodules. A recommendation for follow-up should only be provided for a maximum of 4 nodules. TR5 (>=7 points) (risk of malignancy > 20%) >=1 cm: FNA 0.5-0.9 cm: follow-up US every year for 5 years <0.5 cm: no further evaluation TR4 (4-6 points) (risk of malignancy 5-20%) >=1.5 cm: FNA 1-1.4 cm: follow-up US in 1, 2, 3, and 5 years <1.0 cm: no further evaluation TR3 (3 points) (risk of malignancy 2-5%) >=2.5 cm: FNA 1.5-2.4 cm: follow-up US in 1, 3, and 5 years <1.5 cm: no further evaluation TR2 (2 points) and TR1 (0 points) (risk of malignancy < 2%) No FNA or follow-up US Electronically signed by: Selena Coleman M.D. Narrative 04/05/2024 3:33 PM INGOT CAR OPERATOR EXAMINATION: ??THYROID SONOGRAM HISTORY: Thyroid nodules, follow-up. Prior Biopsy: No Patient Risk Factors: None COMPARISON: Ultrasound dated 01/05/2023 and 05/20/2019 FINDINGS: The thyroid is normal in size. Size right lobe: 5.0 cm craniocaudal, 1.6 cm transverse, 2.2 cm AP. Size left lobe: 5.0 cm craniocaudal, 1.2 cm transverse, 1.6 cm AP. Size isthmus: 0.5 cm AP. Nodule 1: Location: Isthmus. Size: 2.2 cm craniocaudal x 1.9 cm transverse x 1.3 cm AP (previously 2.2 cm craniocaudal x 2.2 cm transverse x 1.2 cm AP when remeasured in a similar fashion on 01/05/2023 and 2.1 x 1.5 x 1.0 cm on 05/20/2019) Maximum Size: 2.2 cm Composition: Mixed cystic and solid (1) Echogenicity: Isoechoic (1) Shape: Not taller than wide (0) Margins: Smooth (0) Echogenic foci: None (0) ACR TI-RADS total points: 2 ACR TI-RADS risk category: TR2 (2 points) Follow-up details: Prior biopsy: No Significant change in size (>/= 20% in two dimensions and minimal increase of 2 mm): Not when compared to 01/05/2023 but increased in size from 2019. Change in features: Not when compared to 01/05/2023. ??However, the nodule was originally classified as TR3 on more remote priors. Change in ACR TI-RADS risk category: Not when compared to 01/05/2023. However, the nodule was originally classified as TR3 on more remote priors. ACR TI-RADS recommendation: No further follow-up based on recategorizing as a TR2 nodule. Targeted sonographic views overlying an area of palpable concern within the left neck showed no suspicious cystic or solid mass. Procedure Note Selena Coleman MD - 04/05/2024 EXAMINATION: THYROID SONOGRAM HISTORY: Thyroid nodules, follow-up. Prior Biopsy: No Patient Risk Factors: None COMPARISON: Ultrasound dated 01/05/2023 and 05/20/2019 FINDINGS: The thyroid is normal in size. Size right lobe: 5.0 cm craniocaudal, 1.6 cm transverse, 2.2 cm AP. Size left lobe: 5.0 cm craniocaudal, 1.2 cm transverse, 1.6 cm AP. Size isthmus: 0.5 cm AP. Nodule 1: Location: Isthmus. Size: 2.2 cm craniocaudal x 1.9 cm transverse x 1.3 cm AP (previously 2.2 cm craniocaudal x 2.2 cm transverse x 1.2 cm AP when remeasured in a similar fashion on 01/05/2023 and 2.1 x 1.5 x 1.0 cm on 05/20/2019) Maximum Size: 2.2 cm Composition: Mixed cystic and solid (1) Echogenicity: Isoechoic (1) Shape: Not taller than wide (0) Margins: Smooth (0) Echogenic foci: None (0) ACR TI-RADS total points: 2 ACR TI-RADS risk category: TR2 (2 points) Follow-up details: Prior biopsy: No Significant change in size (>/= 20% in two dimensions and minimal increase of 2 mm): Not when compared to 01/05/2023 but increased in size from 2019. Change in features: Not when compared to 01/05/2023. However, the nodule was originally classified as TR3 on more remote priors. Change in ACR TI-RADS risk category: Not when compared to 01/05/2023. However, the nodule was originally classified as TR3 on more remote priors. ACR TI-RADS recommendation: No further follow-up based on recategorizing as a TR2 nodule. Targeted sonographic views overlying an area of palpable concern within the left neck showed no suspicious cystic or solid mass. IMPRESSION: 1. Recommendations regarding management of described nodules are included above. 2. Targeted sonographic views overlying an area of palpable concern within the left neck showed no suspicious cystic or solid mass. ACR TI-RADS recommendations FNA should only be recommended on a maximum of 2 nodules. A recommendation for follow-up should only be provided for a maximum of 4 nodules. TR5 (>=7 points) (risk of malignancy > 20%) >=1 cm: FNA 0.5-0.9 cm: follow-up US every year for 5 years <0.5 cm: no further evaluation TR4 (4-6 points) (risk of malignancy 5-20%) >=1.5 cm: FNA 1-1.4 cm: follow-up US in 1, 2, 3, and 5 years <1.0 cm: no further evaluation TR3 (3 points) (risk of malignancy 2-5%) >=2.5 cm: FNA 1.5-2.4 cm: follow-up US in 1, 3, and 5 years <1.5 cm: no further evaluation TR2 (2 points) and TR1 (0 points) (risk of malignancy < 2%) No FNA or follow-up US Electronically signed by: Selena Coleman M.D. us Laurence Choi MD IMG US PROCEDURES Re l Result from Last 3 Months Insurance [facility]PP[facility] Address: [facility] [address] [place] [address] [facility] Address: [address] [address] Care Teams Application Project Leader Relationship Specialty Start Date End Date Luis Gillis DO PCP - General 09/11/20
--- OUTSIDE RECORDS SUMMARY | 2024-04-11 09:21 | XMS_ITS | Referral Summary ---
Author Organization [facility] Address [address] [place] [address] Care Team Providers Care Weatherization And Housing Inspector Name Role Phone Luis Gillis DO Primary Care Provider [phone] Encounters Date Type Department Care Team Description 04/09/2024 3:30 PM ADJUNCT PHLEBOTOMY INSTRUCTOR Clinical Support Safety Stop [address] [place] [phone] 04/05/2024 1:05 PM ADJUNCT PHLEBOTOMY INSTRUCTOR - 04/05/2024 11:59 PM ADJUNCT PHLEBOTOMY INSTRUCTOR Hospital Encounter [facility] [address] [place] [address] Thyroid cyst Discharge Disposition: Discharge to home or self care from Last 3 Months Allergies No known active allergies Medications potassium [...] right eye (OD), no retinal holes/tears/detachments w INFORMATION SERVICES VICE PRESIDENT. Educated on findings and symptoms. Educated symptoms typically improve w PVD. Educated to RTC STAT w any flashes, many floaters, or curtain over vision. Thyroid cyst 05/01/2019 Social History Tobacco Use Types Packs/Day Years Used Date Smoking Tobacco: Never Smokeless Tobacco: Never Tobacco Cessation:Counseling Given: Not Answered Alcohol Use Standard Drinks/Week Comments Yes 0 (1 standard drink = 0.6 oz pur e alcohol) Comments Unknown Sex and Gender Information Value Date Recorded Sex Assigned at Not on file Legal Sex Female 4:00 PM ADJUNCT PHLEBOTOMY INSTRUCTOR Gender Identity Not on file Sexual Orientation Not on file Last Filed Vital Signs Vital Sign Reading Time Taken Comments Blood Pressure 142/82 04/30/2019 11:53 AM ADJUNCT PHLEBOTOMY INSTRUCTOR Pulse 73 04/30/2019 11:53 AM ADJUNCT PHLEBOTOMY INSTRUCTOR Temperature - - Respiratory Rate - - Oxygen Saturation - - Inhaled Oxygen Concentration - - Weight 86.2 kg (190 lb) 01/05/2023 3:47 PM CDT Height 170.2 cm (5' 7 ) 01/05/2023 3:47 PM CDT Body Mass Index 29.76 01/05/2023 3:47 PM CDT Plan of Treatment Not on file Procedures Procedure Name Priority Date/Time Associated Diagnosis Comments US THYROID Schedule Routine, Read Routine (OP Routine) 04/05/2024 3:21 PM ADJUNCT PHLEBOTOMY INSTRUCTOR Thyroid cyst from Last 3 Months Results * US Thyroid (04/05/2024 3:21 PM ADJUNCT PHLEBOTOMY INSTRUCTOR) Anatomical Region Laterality Modality Head and Neck N/A Ultrasound 04/05/2024 3:33 PM ADJUNCT PHLEBOTOMY INSTRUCTOR Impressions 04/05/2024 3:33 PM ADJUNCT PHLEBOTOMY INSTRUCTOR 1. Recommendations regarding management of described nodules [...] Selena Coleman M.D. Narrative 04/05/2024 3:33 PM ADJUNCT PHLEBOTOMY INSTRUCTOR EXAMINATION: ??THYROID SONOGRAM HISTORY: Thyroid nodules, follow-up. [...] US Electronically signed by: Selena Coleman M.D. Laurence Choi MD [facility] PROCEDURES Re l Result from Last 3 Months Insurance [facility]PPO Address: [place] [address] [facility]PP[facility] Address: [place] [address] Care Teams Weatherization And Housing Inspector Relationship Specialty Start Date End Date Luis Glilis DO PCP - General 09/11/20
--- OUTSIDE RECORDS SUMMARY | 2024-04-11 09:21 | XMS_ITS | Encounter Summary ---
Author Organization [facility] Address [address] [place] [address] Care Team Providers Care Stem Roller Or Crusher Operator Name Role Phone Luis Gillis DO Primary Care Provider [phone] Reason for Visit * Reason Comments Car Seat Encounter Details Date Type Department Care Team (Late st Contact Info) Description 04/09/2024 3:30 PM POLE SHAVER HELPER Clinical Support Safety [address] [phone] Social History Tobacco Use Types Packs/Day Years Used Date Smoking Tobacco: Never Smokeless Tobacco: Never Alcohol Use Standard Drinks/Week Comments Yes 0 (1 standard drink = 0.6 oz pur e alcohol) Comments Unknown Sex and Gender Information Value Date Recorded Sex Assigned at Not on file Legal Sex Female 4:00 PM POLE SHAVER HELPER Gender Identity Not on file Sexual Orientation Not on file documented as of this encounter Progress Notes * Anali Carrillo - 04/09/2024 3:[address] [facility] SAFETY ST[facility]- CAR SEAT CONSULT Safety Stop Employee: [id number] Date: 04/09/2024 Safety Stop Carseat Seat Given Via Voucher: Maestro combination seat New Installation?: Yes Nelson came to Safety Stop for a car seat appointment with two Crisis Nursery vouchers for their 3 year old godchild to get a car seat for each of the family's vehicles. During the appointment, we went through general car seat safety information, how to use their new [employer]flo Maestro Sport seats correctly, and how to ensure the base is installed correctly. We also discussed the need to register their car seat and to never use any after market items with the car seat. After demonstrating correct harnessing, Nelson was able to correctly demonstrate harnessing best practices including making sure the harness is coming from at or above the child's shoulders in forward facing car seats, how and when to adjust the harness height, using the chest clip to remove all slack and then tightening the harness to lay on the child securely without the ability the pinch fabric but still being able toslide a finger between the child and the harness, and finishing the correct harnessing by sliding the chest clip up to the armpit level for best practice harnessing. We discussed not wearing winter coats in the car seat and the dangers any loose objects becoming a potentially harmful projectile in the vehicle. While in the office, Nelson also purchased the bath katia rubber duck and we discussed other home safety items to use with door knobs and cabinets. At the vehicle, Nelson opted to replace the seat the child was currently using installed behind the passenger seat so we installed the new seat in that position. Nelson preferred to install the seat with lower anchors, so I demonstrated how to install the car seat with lower anchors, demonstrating the technique to push in and down on the seat while pulling the strap away to get the securest fit at the belt path (where the base connects to the vehicle seat) without more than 1 of movement. Because they got two of the same car seat, Nelson then installed the second seat using the lower anchors to practice and indicated they would ask for help if they had questions when installing the se cond seat in her 's car. I encouraged Nelson to contact us directly after she mentioned they could go to the fire station, so I explained the people at the fire station may not be CPST certified and encouraged them to call us directly or return with any questions. Nelson was grateful forthe assistance. SHAVER HELPER documented in this encounter Plan of Treatment Not on file documented as of this encounter Visit Diagnoses Not on filedocumented in this encounter Care Teams Stem Roller Or Crusher Operator Relationship Specialty Start Date End Date Luis Gillis DO PCP - General 09/11/20 documented as of this encounter
--- OUTSIDE RECORDS SUMMARY | 2024-04-11 09:21 | XMS_ITS | Clinical Summary ---
Author Organization [facility] Care Team Providers Care Dishroom Attendant Name Role Phone Unavailable Primary Care Provider Unavailabl e Social History Tobacco Use Types Packs/Day Years Used Date Smoking Tobacco: Never Assessed Comments Unknown Sex and Gender Information Value Date Recorded Sex Assigned at Not on file Legal Sex Female 11:27 AM CDT Gender Identity Not on file Sexual Orientation Not on file Plan of Treatment Health Maintenance Due Date Last Done Comments Hepatitis C Virus (HCV) Screening 1962 TdaP Immunization 1962 Pap Smear 1983 Cervical Cancer Screening (CCS) 1992 HPV/Cotest 1992 Colonoscopy 2007 Colorectal Cancer Screening 2007 Cologuard 2012 Immunochemical Fecal Occult Blood 2012 Mammogram 2012 Zoster Immunization (1 of 2) 2012 Pneumococcal Immunization (5 0+ years) (2 of 2 - PPSV23) 11/22/2021 11/22/2020 Influenza Immunization (#1) 2023 SARS-COV-2 Immunization ( season) 2023 12/25/2020, 03/23/2020, 03/02/2020 Respiratory Syncytial Virus (RSV) Immunization (Adult) (1 - 1-dose 75+ series) 2037 Pneumococcal Immunization Combined Discontinued 11/22/2020 Hepatitis B Immunization Aged Out No longer eligible based on patient's age to complete this topic Meningococcal Immunization (ACWY) Aged Out No longer eligible based on patient's age to complete this topic Rotavirus Immunization Aged Out No lo nger eligible based on patient's age to complete this topic
== END 2024-04-11 08:54 | disposition home or self-care (01) ==
PROVIDERS: PCP Nurse Practitioner; Visit Provider Nurse Practitioner
DX: R10.11 Right upper quadrant pain (principal); R22.2 Localized swelling, mass and lump, trunk; K80.20 Calculus of gallbladder without cholecystitis without obstruction
CPT/HCPCS: 76536; 76705

== ENCOUNTER 2024-05-14 11:35 | Outpatient (CLI) | payer OTHER, SELFPAY ==
[2024-05-14 12:31] LABS: Basophils Absolute Auto 0.1 K/mm3 (0.0-0.1); Basophils Percent Auto 0.6 % (0.2-1.2); Eosinophils Absolute Auto 0.4 K/mm3 (0-0.3); Hematocrit 38.8 % (37.0-47.0); Hemoglobin 13.3 g/dL (12.0-15.0); Immature Granulocyte Absolute 0.01 K/mm3 (0.00-0.031); Immature Granulocyte Percent A 0.1 % (0-0.5); Lymphocytes Absolute Auto 4.96 K/mm3 (0.9-3.2); Lymphocytes Percent Auto 51.3 % (18.3-44.2); Mean Corpuscular HGB Conc 34.3 g/dl (32-36); Mean Corpuscular Volume 96.3 fl (80-100); Mean Platelet Volume 8.9 fl (7.4-10.4); Monocytes Percent Auto 9.9 % (2.6-8.5); Neutrophils Absolute Auto 3.3 K/mm3 (1.3-6.7); Neutrophils Percent Auto 34.1 % (45.5-73.1); Platelet Count Result 513 k/mm3 (150-375); Red Blood Count 4.03 M/mm3 (4.2-5.4); Red Cell Distribution Width 14.7 % (11.5-14.5); White Blood Count 9.7 K/mm3 (4.5-10.0)
== END 2024-05-14 11:36 | disposition home or self-care (01) ==
LOC: ANHLAB 11:38
PROVIDERS: PCP Nurse Practitioner; Visit Provider Internal Medicine Hematology & Oncology
DX: D58.0 Hereditary spherocytosis (principal)
CPT/HCPCS: 36415; 85025

== ENCOUNTER 2024-08-19 12:03 | Outpatient (CLI) | payer OTHER, SELFPAY ==
[2024-08-19 12:31] LABS: Hematocrit 43.8 % (37.0-47.0); Hemoglobin 14.5 g/dL (12.0-15.0); Mean Corpuscular HGB Conc 33.1 g/dl (32-36); Mean Corpuscular Hemoglobin 32.7 pg (26-34); Mean Corpuscular Volume 98.6 fl (80-100); Mean Platelet Volume 9.1 fl (7.4-10.4); Platelet Count Result 532 k/mm3 (150-375); Red Blood Count 4.44 M/mm3 (4.2-5.4); Red Cell Distribution Width 13.1 % (11.5-14.5); White Blood Count 9.7 K/mm3 (4.5-10.0)
--- OUTSIDE RECORDS SUMMARY | 2024-08-19 13:24 | XMS_ITS | Clinical Summary ---
Author Organization [facility] Address [address] [place] [phone] Care Team Providers Care Java Analyst Name Role Phone Luis Gillis DO Primary Care Provider [phone] Allergies No known active allergies Medications potassium [...] right eye (OD), no retinal holes/tears/detachments w WELT TRIMMING MACHINE OPERATOR. Educated on findings and symptoms. Educated symptoms typically improve w PVD. Educated to RTC STAT w any flashes, many floaters, or curtain over vision. Thyroid cyst 05/01/2019 Surgical History Surgery Date Site/Laterality Comments LASIK [...] on file Legal Sex Female 4:00 PM RAILWAY YARD ASSISTANT Gender Identity Not on file Sexual Orientation Not on file Obstetrics History Last Filed Vital Signs Vital Sign Reading Time Taken Comments Blood Pressure 142/82 04/30/2019 11:53 AM RAILWAY YARD ASSISTANT Pulse 73 04/30/2019 11:53 AM RAILWAY YARD ASSISTANT Temperature - - Respiratory Rate - - Oxygen Saturation - - Inhaled Oxygen Concentration - - Weight 86.2 kg (190 lb) 01/05/2023 3:47 PM CDT Height 170.2 cm (5' 7) 01/05/2023 3:47 PM CDT Body Mass Index 29.76 01/05/2023 3:47 PM CDT Plan of Treatment Health Maintenance Due Date Last Done Comments Breast Cancer Screening-Mammogram 1962 Cervical Cancer Screening 1962 Colon Cancer Screening-Colonoscopy 1962 Depression Screening 1962 Hepatitis C Screening 1962 DTaP/Tdap/Td Vaccine (1 - Tdap) 1973 Hepatitis B Screening 1980 Regular Well Visit/Exam 18-64 1980 Pneumococcal vaccine <65 (1 of 2 - PCV) 1981 Zoster Vaccine (1 of 2) 1981 Influenza Vaccine (Season Ended) 2024 Insurance [facility] Care Teams Java Analyst Relationship Specialty Start Date End Date Luis Gillis DO PCP - General 09/11/20
--- OUTSIDE RECORDS SUMMARY | 2024-08-19 13:24 | XMS_ITS | Data Portability ---
Author Organization [facility] Address [address] [facility] [address] Assessment No assessment recorded. Plan of Treatment Reminders Order Date Submit Date Provider Last Modified By Organization Details Last Modified Time Details Appointments None recorded. Lab None recorded. Referral None recorded. Procedures None recorded. Surgeries None recorded. Imaging None recorded. Medication Orders Zithromax Z-Thomas 250 mg tablet 2024 025 [facility] [facility] [id number], [address], 16:16:16 cetirizine 10 mg tablet 2024 025 [facility] [address], [address], 5 11:45:49 promethazin e 6.25 mg/5 mL oral syrup 2024 025 [place] [facility] [address], [address], 5 11:32:37 prednisone 20 mg tablet 2024 025 [place] [facility] [address], [address], 5 11:34:44 Airsupra 90 mcg-80 mcg/actuati on HFA aerosol inhaler 2024 025 [facility] [id number] In [facility], [address] [place] [address], [address], 11:34:43 Patient TargetsNo targets recorded. Patient Instructions Encounter Date Encounter Id Patient Instructions Last Modified By Organization Details Last Modified Time 07/12/2024 [id number] Acute Sinusitis: Care Instructions Not available 07/12/2024 11:32:30 learning about healthy weight Not available 07/12/2024 11:50:12 bronchitis: care instructions Not available 07/12/2024 11:32:30 Reason for Referral None Reported. Medical Equipment None Reported. Allergies No known drug allergies Medications Name Sig Start Date Stop Date Status Note LastModified by Organization Details LastModified Time amoxicillin 500 mg capsule TAKE 4 CAPSULES BY MOUTH 1 HOUR PRIOR TO APPOINTME NT 07/12 completed Not Available Not Available Not Available hydroxyurea 500 mg capsule TAKE 1 CAPSULE (500 MG) BY MOUTH DAILY active Not Available Not Available No t Available doxycycline hyclate 100 mg capsule TAKE 1 CAPSULE BY MOUTH TWICE DAILY WITH A GLASS OF WATER AND FOOD. DO NOT LIE DOWN FOR AN HOUR AFTER TAKING 09/05 completed Not Available Not Available Not Available albuterol sulfate 2.5 mg/3 mL (0.083 %) solution for nebulizatio n INHALE 1 VIAL VIA NEBULIZER Q 4 TO 6 H PRN SOB OR WHEEZING 07/12 completed Not Available Not Available Not Available cetirizine 10 mg tablet TAKE 1 TABLET BY MOUTH EVERY DAY FOR 30 DAYS active Not Available Not Available No t Available azithromyci n 250 mg tablet TAKE 2 TABLETS BY MOUTH TODAY, THEN TAKE 1 TABLET DAILY FOR 4 DAYS DIRECTED active Not Available Not Available No t Available benzonatate 200 mg capsule TAKE 1 CAPSULE BY MOUTH THREE TIMES DAILY NEEDED FOR COUGH 07/12 completed Not Available Not Available Not Available promethazin e 6.25 mg/5 mL oral syrup TAKE 20 ML 3 TIMES A DAY BY ORAL ROUTE NEEDED. active Not Available Not Available No t Available prednisone 20 mg tablet TAKE 5, 4, 3, 2, 1 TABS CONSECUTI VELY OVER THE COURSE OF 5 DAYS active Not Available Not Available No t Available prednisone 5 mg tablet TAKE 10 TABLET BY MOUTH ON DAY 1 DECREASE BY 1 TABLET EVERY DAY TILL YOU REACH 1 TABLET BY MOUTH ON DAY 10 09/05 completed Not Available Not Available Not Available potassium chloride ER 10 mEq tablet,exte nded release active Not Available Not Available Not Available amoxicillin 500 mg tablet TAKE 4 TABLET 1 HOUR PRIOR TO PROCEDURE 07/12 completed Not Available Not Available Not Available oxycodone-a cetaminophe n 5 mg-325 mg tablet 09/05 completed Not Available Not Available Not Available amoxicillin 875 mg tablet TAKE 1 TABLET BY MOUTH TWICE A DAY FOR 10 DAYS 07/12 completed Not Available Not Available Not Available Silvadene 1 % topical cream APPLY A 1/16 INCH (1.5 MM) THICK LAYER TO ENTIRE BURN AREA BY TOPICALRO SLOAN 2 TIMES PER DAY 07/12 completed Not Available Not Available Not Available cephalexin 500 mg capsule TAKE 1 CAPSULE BY MOUTH EVERY 8 HOURS FOR 7 DAYS active Not Available Not Available No t Available erythromyci n 5 mg/gram (0.5 %) eye ointment APPLY 1 CM RIBBON INTO THE LOWER CONJUNCTI GYPSY SAC(S) IN THE AFFECTED EYE(S) BY OPHTHALMI C ROUTE 3 TIMES PER DAY 07/12 completed Not Available Not Available Not Available allopurinol 300 mg tablet TAKE 1 TABLET BY MOUTH EVERY DAY active Not Available Not Available No t Available cefuroxime axetil 500 mg tablet Take 1 tablet every 12 hours by oral route for 10 days. 07/12 completed Not Available Not Available Not Available methylpredn isolone 4 mg tablets in a dose pack FOLLOW PACKAGE DIRECTION S 07/12 completed Not Available Not Available Not Available clobetasol 0.05 % scalp solution ONE APPLICATI ON TOPICALLY DAILY NEEDED FOR ALOPECIA active Not Available Not Available No t Available Ventolin HFA 90 mcg/actuati on aerosol inhaler Inhale 2 puffs every 4 hours by inhalatio n route as needed for 30 days. 07/12 completed Not Available Not Available Not Available olmesartan 40 mg-hydrochl orothiazide 25 mg tablet TAKE 1 TABLET BY MOUTH DAILY active Not Available Not Available No t Available Airsupra 90 mcg-80 mcg/actuati on HFA aerosol inhaler INHALE 2 PUFFS EVERY 4 HOURS NEEDED active Not Available Not Available No t Available Vitals Date Recorded Body height Body mass index (BMI) Body weight Provider Name and Address Organization Details Last Updated DateTime 07/12/2024 170.18 cm 29 kg/m2 38017.59 g Ruth Hernandez MA [facility] 07/12/2024 11:19:12 Social History Question Answer Notes LastModified by Organizat ion Details LastModified Time Tobacco Smoking Status Never Smoker Ruth Hernandez MA null, [facility] 07/12/2024 11:18:45 What Was The Date Of Your Most Recent Tobacco Screening? 07/12/2024 Information not available 07/12/2024 Sex: Unknown Functional Status Question Answer Note LastModified by Organization D etails LastModified Time Do you or have you ever used any other forms of tobacco or nicotine? No Information not available 07/12/2024 Mental Status None recorded. Family History Nothing Reported. Medical History No medical history recorded. Gynecological HistoryNo gynecological history recorded. Obstetrics History GPAL:G 0 P 0 0 0 0 Past Encounters Encounter ID Performer Location Encounter Start Date Encounter Closed Date Diagnosis/Indication Diagnosis SNOMED-CT Code Diagnosis ICD10 Code Diagnosis Note [id number] Erin Samaniego MD [facility] gigi FP (TRINH 104) [address] [place] [address] 07/12/2024 11:15:56 07/15/2024 14:49:16 Acute frontal sinusitis 53016059 J01.10 f/u as needed w/ PCPhydrati on and rest encouraged report to ED if s/s worsen or experience CP, SOB, JOSÉ or the likesuppor tive therapy along w/ hand hygeine, masking and staying away from others encouraged Z-pack specifical ly requested/ pt verbalized preference ; as she reports she does not do well with other antibiotic s such as amoxicilli n/augmenti n (i.e. GI disturbanc e).Continu e antihistam ine use Acute bronchitis 9464463 2 J20.9 f/u as needed w/ PCPhydrati on and rest encouraged report to ED if s/s worsen or experience CP, SOB, JOSÉ or the likesuppor tive therapy along w/ hand hygeine, masking and staying away from others encouraged Patient reports prior prescripti on of Tessalon Perles are ineffectiv e.Albutero l inhaler to be used in lieu of Airsupra if not covered per patient insurance. Body mass index 25-29 - overweight 682750255 E66.3 Health Concerns Section Related Observation LastModified by Organization Detai ls LastModified Time None Recorded Concern Status LastModified by Organization Details LastModified Time None Recorded Advance Directives Directive None Recorded Payers Encounter Date Sequence Insurance Name Policy Number Policy Maravilla Covered Member ID Maravilla Member ID Guarantor Name 07/12/2024 1 [facility] [id number] Chirpify A Rattler [id number] Chirpify Rattler Notes Date Note Type Note Provider Name and Address Organization Details Recorded Time 07/12/2024 text/html Sinusitis/Allerg yRe ported bypatient.Location: maxillary; frontal Associated Symptoms:no fever;nasal discharge from both nostrils;headache cheek;sinus pain cheek;sore throat;constantly clearing the throat;nasal discharge Onset/Timing:gradua l onset; progressively worse over last 1weeks Quality:worsening Severity:current pain 7/10; moderate Patient with a history of bronchitis, hypertension and platelets with disorder presents to the clinic with complaint of an intermittent productive cough, raspy voice, chest and nasal congestion congestion with rhinitis for the past week. She also reports a deep barking cough with occasional, mild shortness of breath for the past 2 days. She reports trialing syit-utw-yxowmgw Zyrtec and increase hydration with minimal relief. No others within the home are ill with similar symptoms. She denies risk for COVID-19 and influenza; while she reports her vaccines are current. Pt denies nausea, vomiting, fever, chills, rash, chest pain, dyspnea on exertion, diarrhea, constipation and dysuria. She denies a history of tobacco use. BARRON Madsen Attn: Accounting[address] [place], [address], [facility] 07/12/2024 11:51:10 OBGyn Episode No OBEpisode recorded.
--- OUTSIDE RECORDS SUMMARY | 2024-08-19 13:24 | XMS_ITS | Referral Summary ---
Author Organization [facility] Address [address] [place] [address] Care Team Providers Care Critical Care Educator Name Role Phone Luis Gillis DO Primary Care Provider [phone] Allergies No known active allergies Medications potassium [...] right eye (OD), no retinal holes/tears/detachments w HIGH SCHOOL GUIDANCE COUNSELOR. Educated on findings and symptoms. Educated symptoms [...] on file Legal Sex Female 4:00 PM PERSONAL LINES UNDERWRITER Gender Identity Not on file Sexual Orientation Not on file Last Filed Vital Signs Vital Sign Reading Time Taken Comments Blood Pressure 142/82 04/30/2019 11:53 AM PERSONAL LINES UNDERWRITER Pulse 73 04/30/2019 11:53 AM PERSONAL LINES UNDERWRITER Temperature - - Respiratory Rate - - Oxygen Saturation - - Inhaled Oxygen Concentration - - Weight 86.2 kg (190 lb) 01/05/2023 3:47 PM CDT Height 170.2 cm (5' 7) 01/05/2023 3:47 PM CDT Body Mass Index 29.76 01/05/2023 3:47 PM CDT Plan of Treatment Not on file Insurance [facility] Care Teams Critical Care Educator Relationship Specialty Start Date End Date Luis Gillis DO PCP - General 09/11/20
--- OUTSIDE RECORDS SUMMARY | 2024-08-19 13:24 | XMS_ITS | Clinical Summary ---
[facility] Address [address] [facility] [place] [address] Care Team Providers Care Supervisory Clerk Name Role Phone Luis Gillis Primary Care Provider [phone] Allergies No known active allergies Medications potassium chloride (KLOR-CON) 10 mEq Extended Release tablet 11/04/2021 Acti ve losartan (COZAAR) 100 mg tablet Take 125 mg by mouth daily. Active aspirin (ECOTRIN EC) 81 mg Tablet, Delayed Release (E.C.) Take 81 mg by mouth daily. 4 tablets daily Active allopurinoL (ZYLOPRIM) 300 mg tablet Take 1 Tablet (300 mg) by mouth daily. 60 Tablet 2 05/17/2024 Active hydroxyurea (HYDREA) 500 mg capsule Take 1 Capsule (500 mg) by mouth daily. 60 Capsule 2 05/17/2024 Active Active Problems No known active problems Encounters Date Type Department Care Team Description 08/06/2024 External Device Data STL ABSTRACTION Provider, Abstract 07/31/2024 External Device Data STL ABSTRACTION Provider, Abstract 07/30/2024 External Device Data ST[facility] ABSTRACTION Provider, Abstract 06/11/2024 External Device Data STL ABSTRACTION Provider, Abstract 05/29/2024 External Device Data STL ABSTRACTION Provider, Abstract 05/21/2024 External Device Data STL ABSTRACTION Provider, Abstract 05/21/2024 External Device Data STL ABSTRACTION Provider, Abstract 05/20/2024 External Device Data STL ABSTRACTION Provider, Abstract from Last 3 Months Family History Medical History Relation Name Comments No Known Problems Brother 1 Heart Failure Brother 2 No Known Problems Brother 3 No Known Problems Daughter 1 No Known Problems Daughter 2 Heart Disease Father Diabetes Mother Heart Disease Mother No Known Problems Sister 1 No Known Problems Sister 2 No Known Problems Sister 3 No Known Problems Son Relation Name Status Comments Brother 1 Alive Brother 2 Brother 3 Alive Daughter 1 Alive Daughter 2 Alive Father Mother Sister 1 Alive Sister 2 Alive Sister 3 Alive Son Alive Social History Tobacco Use Types Packs/Day Years Used Date Smoking Tobacco: Never Smokeless Tobacco: Never Tobacco Cessation:Counseling Given: Not Answered Alcohol Use Standard Drinks/Week Comments Yes 0 (1 standard drink = 0.6 oz pur e alcohol) socially Comments Unknown Sex and Gender Information Value Date Recorded Sex Assigned at Not on file Legal Sex Female 9:44 AM TRANSPLANT SURGEON Gender Identity Not on file Sexual Orientation Not on file Last Filed Vital Signs Vital Sign Reading Time Taken Comments Blood Pressure 123/75 05/17/2024 10:16 AM TRANSPLANT SURGEON Pulse 86 05/17/2024 10:16 AM TRANSPLANT SURGEON Temperature 35.6 C (96 F) 05/17/2024 10:16 AM TRANSPLANT SURGEON Respiratory Rate 17 05/17/2024 10:1 6 AM TRANSPLANT SURGEON Oxygen Saturation 96% 05/17/2024 10: 16 AM TRANSPLANT SURGEON Inhaled Oxygen Concentration - - Weight 88.8 kg (195 lb 12.8 oz) 025 10:16 AM TRANSPLANT SURGEON Height 170.2 cm (5' 7) 04/14/2022 10:4 9 AM TRANSPLANT SURGEON Body Mass Index 30.67 04/14/2022 10:49 AM TRANSPLANT SURGEON Plan of Treatment Upcoming Encounters Date Type Department Care Team (Late st Contact Info) Description 08/20/2024 11:30 AM CDT [facility] - Be [address] [facility] [address] [place] [address] Chaka Freeman MD [address] [facility] [address] [place] [address] Health Maintenance Due Date Last Done Comments Pre-Diabetes and Diabetes Screening 1962 DTAP/TDAP/TD VACCINES (1 - Tdap) 1981 HPV/Cotest (21-29) 1983 CERVICAL CANCER SCREENING 1992 HPV/Cotest (30-65) 1992 PAP SMEAR 1992 BREAST CANCER SCREENING 2002 COLORECTAL SCREENING 2007 Colorectal Cancer Screening 2007 FIT-DNA Q 3 years 2007 FIT/FOBT Q 1 year 2007 Flex Sig/CT Colonography Q 5 years 2007 ZOSTER VACCINE (1 of 2) 2012 INFLUENZA VACCINE (#1) 2023 05/22/2023 Preventative Visit- Commercial 2024 RSV VACCINE (60+ or ) (1 - 1-dose 75+ series) 2037 Insurance [facility] CHOICE [id number] Care Teams Supervisory Clerk Relationship Specialty Start Date End Date Luis Gillis DO [address] [facility] [address] [place] [address] PCP - General Internal Medicine 04/14/22
--- OUTSIDE RECORDS SUMMARY | 2024-08-19 13:24 | XMS_ITS | Clinical Summary ---
Author Organization [facility] Care Team Providers Care Blasting Entry Specialist Name Role Phone Unavailable Primary Care Provider [...]
[2024-08-19 16:04] LABS: Anion Gap 9 mmol/L (4-12); Blood Urea Nitrogen 14 mg/dL (7-17); Carbon Dioxide 30 mmol/L (22-30); Chloride 105 mmol/L (98-107); Estimated Glomerular Filt Rate 49; Glucose 104 mg/dL (65-110); Potassium 3.7 mmol/L (3.4-5.0); Sodium 144 mmol/L (137-145)
== END 2024-08-19 12:04 | disposition home or self-care (01) ==
PROVIDERS: PCP Nurse Practitioner; Visit Provider Internal Medicine Hematology & Oncology
DX: D58.0 Hereditary spherocytosis (principal)
CPT/HCPCS: 36415; 80048; 85027

== ENCOUNTER 2024-09-10 09:55 | Outpatient (CLI) | payer OTHER, SELFPAY ==
--- OUTSIDE RECORDS SUMMARY | 2024-09-10 10:06 | XMS_ITS | Clinical Summary ---
Author Organization [facility] Care Team Providers Care Cement Mixer Driver Name Role Phone Unavailable Primary Care Provider [...] Virus (HCV) Screening 1962 TdaP Immunization 1962 Cologuard 2007 Colonoscopy 2007 Colorectal Cancer Screening 2007 Immunochemical Fecal Occult Blood 2007 Zoster Immunization (1 of 2) 2012 Pneumococcal Immunization (5 0+ years) (2 of 2 - PPSV23) 11/22/2021 11/22/2020 SARS-COV-2 Immunization ( - season) 2023 12/25/2020, 03/23/2020, 03/02/2020 Influenza Immunization (Seas on Ended) 2024 Respiratory Syncytial Virus (RSV) Immunization (Adult) (1 - 1-dose 75+ series) 2037 Pneumococcal Immunization Combined Discontinued 11/22/2020 Hepatitis B Immunization Aged Out No longer eligible based on patient's age to complete this topic Human Papillomavirus (HPV) Immunization Aged Out No longer eligible based on patient's age to complete this topic Meningococcal Immunization (ACWY) Aged Out No longer eligible based on patient's age to complete this topic Rotavirus Immunization Aged Out No lo nger eligible based on patient's age to complete this topic
--- OUTSIDE RECORDS SUMMARY | 2024-09-10 10:06 | XMS_ITS | Data Portability ---
Author Organization [facility] Address [address] [place] [address] Assessment No assessment recorded. Plan of Treatment Reminders Order Date Submit Date Provider Last Modified By Organization Details Last Modified Time Details Appointments None recorded. Lab None recorded. Referral None recorded. Procedures None recorded. Surgeries None recorded. Imaging None recorded. Medication Orders Zithromax Z-Thomas 250 mg tablet 2024 025 [place] [facility] [id number], [address], 5 16:16:16 cetirizine 10 mg tablet 2024 025 [facility] [address], [address], 5 11:45:49 promethazin e 6.25 mg/5 mL oral syrup 2024 025 [place] [facility] [address], [address], 5 11:32:37 prednisone 20 mg tablet 2024 025 [place] [facility] [address], [address], 5 11:34:44 Airsupra 90 mcg-80 mcg/actuati on HFA aerosol inhaler 2024 025 [facility] [facility] [address] In [facility], [address] [place] [address], [address], 11:34:43 Patient TargetsNo targets recorded. Patient Instructions Encounter Date Encounter Id Patient Instructions Last Modified By Organization Details Last Modified Time 07/12/2024 [id number] Acute Sinusitis: Care Instructions Not available 07/12/2024 [...] LAYER TO ENTIRE BURN AREA BY TOPICALRO EKLUTNA 2 TIMES PER DAY 07/12 completed Not [...] Updated DateTime 07/12/2024 170.18 cm 29 kg/m2 50602.59 g Ruth Hernandez MA [facility] 07/12/2024 11:19:12 Social History Question Answer Notes LastModified by Organizat ion Details LastModified Time Tobacco Smoking Status Never Smoker Ruth Hernandez MA null, [facility] 07/12/2024 11:18:45 What Was The Date Of [...] SNOMED-CT Code Diagnosis ICD10 Code Diagnosis Note [id number] Erin Samaniego MD [facility] e FP (TRINH 104) [address] [place] [address] 07/12/2024 11:15:56 07/15/2024 14:49:16 Acute frontal sinusitis 90492495 J01.10 f/u as needed w/ PCPhydrati on [...] e).Continu e antihistam ine use Acute bronchitis 8483891 2 J20.9 f/u as needed w/ PCPhydrati [...] insurance. Body mass index 25-29 - overweight [id number] E66.3 Health Concerns Section Related Observation LastModified by Organization Detai ls LastModified Time None Recorded Concern Status LastModified by Organization Details LastModified Time None Recorded Advance Directives Directive None Recorded Payers Insurance Date Sequence Insurance Name Policy Number Policy Maravilla Covered Member ID Maravilla Member ID Guarantor Name 07/12/2024 1 [facility] [id number] Nelson Wolfetler [id number] Nelson Wolfetler Notes Date Note Type Note Provider Name [...] the past 2 days. She reports trialing nrqd-cag-tlsecsy Zyrtec and increase hydration with minimal relief. No others within the home are ill with similar symptoms. She denies risk for COVID-19 and influenza; while she reports her vaccines are current. Pt denies nausea, vomiting, fever, chills, rash, chest pain, dyspnea on exertion, diarrhea, constipation and dysuria. She denies a history of tobacco use. Yanira Landaverde, CABLE MACHINE OPERATOR- Attn: Accounting[address] [place], [address], [facility] 07/12/2024 11:51:10 OBGyn Episode No OBEpisode recorded.
--- OUTSIDE RECORDS SUMMARY | 2024-09-10 10:06 | XMS_ITS | Clinical Summary ---
Author Organization [facility] Address [address] [place] [address] Care Team Providers Care Oil Burner Mechanic Name Role Phone Luis Gillis DO Primary Care Provider [phone] Allergies No known active allergies Medications potassium chloride (KLOR-CON) 10 mEq Extended Release tablet 2 Active losartan (COZAAR) 100 mg tablet Take 125 mg by mouth daily. Active aspirin (ECOTRIN EC) 81 mg Tablet, Delayed Release (E.C.) Take 81 mg by mouth daily. 4 tablets daily Active allopurinoL (ZYLOPRIM) 300 mg tablet Take 1 Tablet (300 mg) by mouth daily. 60 Tablet 2 5 Active hydroxyurea (HYDREA) 500 mg capsule Take 1 Capsule (500 mg) by mouth daily. 60 Capsule 2 5 Active allopurinoL (ZYLOPRIM) 300 mg tablet Take 1 Tablet (300 mg) by mouth daily. 60 Tablet 2 5 08/21/19 25 Discontinu ed(Reorder ) hydroxyurea (HYDREA) 500 mg capsule Take 1 Capsule (500 mg) by mouth daily. 60 Capsule 2 5 08/21/19 25 Discontinu ed(Reorder ) Active Problems No known active problems Encounters Date Type Department Care Team Description 09/03/2024 External Device Data STL ABSTRACTION Provider, Abstract 08/20/2024 11:30 AM CDT Office Visit [facility] Oncology and Hematology - Be [address] [place] [address] Chaka Freeman MD Spherocytosis, hereditary (Primary Dx) 08/20/2024 Orders Only [facility] Oncology and Hematology - [address] [place] [address] Chaka Freeman MD 08/06/2024 External Device Data STL ABSTRACTION Provider, [...] on file Legal Sex Female 9:44 AM STOVE TENDER Gender Identity Not on file Sexual Orientation Not on file Last Filed Vital Signs Vital Sign Reading Time Taken Comments Blood Pressure 140/81 08/20/2024 11:23 AM CDT Pulse 90 08/20/2024 11:23 AM CDT Temperature 36.3 C (97.4 F) 08/20/2024 11:23 AM CDT Respiratory Rate 15 08/20/2024 11:23 AM CDT Oxygen Saturation 94% 08/20/2024 11:23 AM CDT Inhaled Oxygen Concentration - - Weight 88 kg (194 lb) 08/20/2024 11:23 AM CDT Height 170.2 cm (5' 7) 04/14/2022 10:49 AM STOVE TENDER Body Mass Index 30.38 04/14/2022 10:49 AM STOVE TENDER Plan of Treatment Upcoming Encounters Date Type Department Care Team (Late st Contact Info) Description 02/20/2025 3:45 PM STOVE TENDER Office Visit [facility] Oncology and Hematology - Be [address] [facility] [address] [place] [address] Chaka Freeman MD [address] [facility] [address] [place] [address] Health Maintenance Due Date Last [...] 2) 2012 INFLUENZA VACCINE (#1) 2023 05/22/2023 RSV VACCINE (60+ or ) (1 - 1-dose 75+ series) 2037 Procedures Procedure Name Priority Date/Time Associated Diagnosis Comments BASIC METABOLIC PANEL Routine 08/19/2024 10:58 AM CDT CBC WITH AUTODIFFERENTIAL Routine 2024 10:11 AM CDT from Last 3 Months Results * BASIC METABOLIC PANEL (08/19/2024 10:58 AM CDT) Blood us Chaka Freeman MD CHEMISTRY ORDERABLES Final Resu lt * CBC WITH AUTODIFFERENTIAL (08/19/2024 10:11 AM CDT) Blood Chaka Freeman MD HEMATOLOGY ORDERABLES Final Res ult from Last 3 Months Insurance [facility] CHOICE [id number] Care Teams Oil Burner Mechanic Relationship Specialty Start Date End Date Luis Gillis DO [address] [facility] [address] [place] [address] PCP - General Internal Medicine 04/14/22
--- OUTSIDE RECORDS SUMMARY | 2024-09-10 10:06 | XMS_ITS | Clinical Summary ---
Author Organization [facility] Address [address] [place] [address] Care Team Providers Care Babcock Tester Name Role Phone Luis Gillis DO Primary Care Provider [phone] Allergies No known active allergies Medications potassium [...] right eye (OD), no retinal holes/tears/detachments w CAFE COOK. Educated on findings and symptoms. Educated symptoms [...] on file Legal Sex Female 4:00 PM PULLING UNIT FLOORHAND Gender Identity Not on file Sexual Orientation Not on file Obstetrics History Last Filed Vital Signs Vital Sign Reading Time Taken Comments Blood Pressure 142/82 04/30/2019 11:53 AM PULLING UNIT FLOORHAND Pulse 73 04/30/2019 11:53 AM PULLING UNIT FLOORHAND Temperature - - Respiratory Rate - - [...] (1 of 2) 1981 Influenza Vaccine (#1) 2024 Insurance [facility] Care Teams Babcock Tester Relationship Specialty Start Date End Date Luis Gillis DO PCP - General 09/11/20
--- OUTSIDE RECORDS SUMMARY | 2024-09-10 10:06 | XMS_ITS | Referral Summary ---
Author Organization [facility] Address [address] [place] [id number] Care Team Providers Care Forming Machine Adjuster Name Role Phone Luis Gillis DO Primary Care Provider Allergies No known active allergies Medications potassium [...] right eye (OD), no retinal holes/tears/detachments w SUPERVISOR ELECTROLYTIC TINNING. Educated on findings and symptoms. Educated symptoms [...] on file Legal Sex Female 4:00 PM OTTER TRAWLER [place] Gender Identity Not on file Sexual Orientation Not on file Last Filed Vital Signs Vital Sign Reading Time Taken Comments Blood Pressure 142/82 04/30/2019 11:53 AM OTTER TRAWLER [place] Pulse 73 04/30/2019 11:53 AM OTTER TRAWLER [place] Temperature - - Respiratory Rate - - Oxygen Saturation - - Inhaled Oxygen Concentration - - Weight 86.2 kg (190 lb) 01/05/2023 3:47 PM CDT Height 170.2 cm (5' 7) 01/05/2023 3:47 PM CDT Body Mass Index 29.76 01/05/2023 3:47 PM CDT Plan of Treatment Not on file Insurance [facility] Care Teams Forming Machine Adjuster Relationship Specialty Start Date End Date Luis Gillis DO PCP - General 09/11/20
--- NOTE | 2024-09-10 10:40 | ECG_ITS ---
Test Date: 2024-09-10 10:46:27 Measurements Intervals [place] Rate: 82 P: 42 WA: 175 QRS: 26 QRSD: 81 T: 34 QT: 370 QTc: 434 Interpretive Statements SINUS RHYTHM WITH SINUS ARRHYTHMIA No previous ECG available for comparison Electronically Signed On 09-10-2024 18:05:47 CDT by Juan Hi
== END 2024-09-10 09:56 | disposition home or self-care (01) ==
LOC: ANHCARD 09:57
PROVIDERS: PCP Nurse Practitioner; Visit Provider Nurse Practitioner
DX: R10.13 Epigastric pain (principal)
CPT/HCPCS: 93005

== ENCOUNTER 2024-10-21 11:37 | Outpatient (CLI) | payer OTHER, SELFPAY ==
--- OUTSIDE RECORDS SUMMARY | 2024-10-21 11:41 | XMS_ITS | Clinical Summary ---
Author Organization [facility] Address [address] [place] [phone] Care Team Providers Care Process Cheese Cooker Name Role Phone Luis Gillis DO Primary Care Provider [phone] Allergies No known active allergies Medications potassium [...] right eye (OD), no retinal holes/tears/detachments w HEDDLER TIER. Educated on findings and symptoms. Educated symptoms [...] on file Legal Sex Female 4:00 PM BRIDGE DESIGN ENGINEER Gender Identity Not on file Sexual Orientation Not on file Obstetrics History Last Filed Vital Signs Vital Sign Reading Time Taken Comments Blood Pressure 142/82 04/30/2019 11:53 AM BRIDGE DESIGN ENGINEER Pulse 73 04/30/2019 11:53 AM BRIDGE DESIGN ENGINEER Temperature - - Respiratory Rate - - [...] 2) 1981 Influenza Vaccine (#1) 2024 Insurance [facility] H[facility]/PPO Address: [place] [address] [facility] H[facility]/PPO Address: [place] [address] Care Teams Process Cheese Cooker Relationship Specialty Start Date End Date Luis Gillis DO PCP - General 09/11/20
--- OUTSIDE RECORDS SUMMARY | 2024-10-21 11:41 | XMS_ITS | Clinical Summary ---
Author Organization [facility] Care Team Providers Care Bulk Coolers Installer Name Role Phone Unavailable Primary Care Provider [...] Cervical Cancer Screening (CCS) 1992 HPV/Cotest 1992 Cologuard 2007 Colonoscopy 2007 Colorectal Cancer Screening 2007 Immunochemical Fecal Occult Blood 2007 Zoster Immunization (1 of 2) 2012 Pneumococcal Immunization (5 0+ years) (2 of 2 - PCV20 or PCV21) 11/22/2021 11/22/2020 SARS-COV-2 Immunization ( - season) 2023 12/25/2020, 03/23/2020, 03/02/2020 Influenza Immunization (#1) 2024 Respiratory Syncytial Virus (RSV) Immunization (Adult) [...]
--- OUTSIDE RECORDS SUMMARY | 2024-10-21 11:41 | XMS_ITS | Clinical Summary ---
Author Organization [facility] Yulia sorto Balaji Address [address] [place] [address] Care Team Providers Care Fence Making Machine Operator Name Role Phone Luis Gillis DO Primary Care Provider [phone] Allergies No known active allergies Medications potassium [...] mg) by mouth daily. 60 Tablet 2 08/20/2024 Active hydroxyurea (HYDREA) 500 mg capsule Take 1 Capsule (500 mg) by mouth daily. 60 Capsule 2 08/20/2024 Active Active Problems No known active problems Encounters Date Type Department Care Team Description 10/15/2024 External Device Data [facility] ABSTRACTION Provider, Abstract 09/03/2024 External Device Data [facility] ABSTRACTION Provider, Abstract 08/20/2024 11:30 AM CDT Office Visit [facility] Oncology and Hematology [facility] [address] [place] [address] Chaka Freeman MD Spherocytosis, hereditary (Primary Dx) 08/20/2024 Orders Only [facility] Oncology and Hematology [facility] [address] [facility] [place] [address] Chaka Freeman MD 08/06/2024 External Device [...] on file Legal Sex Female 9:44 AM PUBLIC HEALTH SANITARIAN TECHNICIAN Gender Identity Not on file Sexual Orientation [...] 170.2 cm (5' 7) 04/14/2022 10:49 AM PUBLIC HEALTH SANITARIAN TECHNICIAN Body Mass Index 30.38 04/14/2022 10:49 AM PUBLIC HEALTH SANITARIAN TECHNICIAN Plan of Treatment Upcoming Encounters Date Type Department Care Team (Late st Contact Info) Description 02/20/2025 3:45 PM PUBLIC HEALTH SANITARIAN TECHNICIAN Office Visit [facility] Oncology and Hematology - [place] [address] [facility] [address] [place] [address] Chaka Freeman MD [address] [facility] [address] [place] [address] Health Maintenance Due Date Last [...] (1 of 2) 2012 INFLUENZA VACCINE (#1) 2024 05/22/2023 RSV VACCINE (60+ or ) (1 [...] WITH AUTODIFFERENTIAL (08/19/2024 10:11 AM CDT) Blood us Chaka Freeman MD HEMATOLOGY ORDERABLES Final Res ult from Last 3 Months Insurance [facility] CHOICE [id number] Care Teams Fence Making Machine Operator Relationship Specialty Start Date End Date Luis Gillis DO [address] [facility] [address] [place] [address] PCP - General Internal Medicine 04/14/22
[2024-10-21 12:15] LABS: Hematocrit 40.7 % (37.0-47.0); Hemoglobin 13.9 g/dL (12.0-15.0); Mean Corpuscular HGB Conc 34.2 g/dl (32-36); Mean Corpuscular Hemoglobin 33.2 pg (26-34); Mean Corpuscular Volume 97.1 fl (80-100); Platelet Count Result 528 k/mm3 (150-375); Red Blood Count 4.19 M/mm3 (4.2-5.4); White Blood Count 8.1 K/mm3 (4.5-10.0)
[2024-10-21 12:51] LABS: Alanine Aminotransferase 18 U/L (6-35); Albumin Level 4.3 g/dL (3.5-5.1); Alkaline Phosphatase 67 U/L (38-126); Anion Gap 6 mmol/L (4-12); Aspartate Amino Transferase 31 U/L (14-36); Bilirubin,Total 0.6 mg/dL (0.2-1.3); Blood Urea Nitrogen 13 mg/dL (7-17); Calcium 9.5 mg/dL (8.4-10.2); Carbon Dioxide 30 mmol/L (22-30); Chloride 106 mmol/L (98-107); Estimated Glomerular Filt Rate > 60; Glucose 83 mg/dL (65-110); Potassium 4.6 mmol/L (3.4-5.0); Sodium 142 mmol/L (137-145); Total Protein 7.4 g/dL (6.3-8.2)
== END 2024-10-21 11:38 | disposition home or self-care (01) ==
LOC: ANHIMG 11:39
PROVIDERS: PCP Nurse Practitioner; Visit Provider Nurse Practitioner
DX: E78.5 Hyperlipidemia, unspecified (principal); D75.839 Thrombocytosis, unspecified; I10 Essential (primary) hypertension
CPT/HCPCS: 36415; 80053; 85027

== ENCOUNTER 2024-12-30 14:38 | Outpatient (CLI) | payer OTHER, SELFPAY ==
--- NOTE | ~2024-12-30 | XR_ITS ---
EXAMINATION: XR heel LT min 2V, 12/30/2024 14:52 CDT HISTORY: Possible FB COMPARISON: No comparisons available. Findings: No acute fracture or malalignment. Moderate Achilles enthesopathy. Small calcaneal spur. Soft tissue swelling, no radiopaque foreign body identified Impression: No acute fracture or malalignment. Reviewed, dictated and finalized at location P. Impression: No acute fracture or malalignment.
--- OUTSIDE RECORDS SUMMARY | 2024-12-30 17:11 | XMS_ITS | Clinical Summary ---
Author Organization [facility] Address [address] [place] [address] Care Team Providers Care Service Technician Name Role Phone Luis Gillis DO Primary Care Provider [phone] Allergies No known active allergies Medications potassium [...] eye (OD), no retinal holes/tears/detachments w SUPERVISOR WHEEL SHOP. Educated on findings and symptoms. Educated symptoms [...] on file Legal Sex Female 4:00 PM DURABILITY TECHNICIAN Gender Identity Not on file Sexual Orientation Not on file Obstetrics History Last Filed Vital Signs Vital Sign Reading Time Taken Comments Blood Pressure 142/82 04/30/2019 11:53 AM DURABILITY TECHNICIAN Pulse 73 04/30/2019 11:53 AM DURABILITY TECHNICIAN Temperature - - Respiratory Rate - - [...] 2) 1981 Influenza Vaccine (#1) 2024 Insurance [facility]/PPO Address: [place] [address] [facility] HMO/PPO Address: [place] [address] Care Teams Service Technician Relationship Specialty Start Date End Date Luis Gillis DO PCP - General 09/11/20
--- OUTSIDE RECORDS SUMMARY | 2024-12-30 17:11 | XMS_ITS | Clinical Summary ---
Author Organization [facility] Care Team Providers Care Retail Furniture Sales Name Role Phone Unavailable Primary Care Provider [...] 2 - PCV20 or PCV21) 11/22/2021 11/22/2020 Influenza Immunization (#1) 2024 SARS-COV-2 Immunization ( season) 2024 12/25/2020, 03/23/2020, 03/02/2020 Respiratory Syncytial Virus (RSV) [...]
--- OUTSIDE RECORDS SUMMARY | 2024-12-30 17:11 | XMS_ITS | Clinical Summary ---
[facility] Address [address] [facility] [place] [address] Care Team Providers Care Product Accountant Name Role Phone Luis Gillis Primary Care Provider [phone] Allergies No known active allergies Medications potassium [...] on file Legal Sex Female 9:44 AM DIRECTOR FRAUD Gender Identity Not on file Sexual Orientation [...] 170.2 cm (5' 7) 04/14/2022 10:49 AM DIRECTOR FRAUD Body Mass Index 30.38 04/14/2022 10:49 AM DIRECTOR FRAUD Plan of Treatment Upcoming Encounters Date Type Department Care Team (Late st Contact Info) Description 02/20/2025 3:45 PM DIRECTOR FRAUD Office Visit [facility] Oncology and Hematology - [place] [address] [facility] [address] [place] [address] Chaka Freeman MD [address] [facility] [address] [place] [address] Health Maintenance Due Date Last [...] (1 - 1-dose 75+ series) 2037 Insurance [facility] CHOICE [id number] Care Teams Product Accountant Relationship Specialty Start Date End Date Luis Gillis DO [address] [facility] [address] [place] [phone] PCP - General Internal Medicine 04/14/22
== END 2024-12-30 14:39 | disposition home or self-care (01) ==
PROVIDERS: PCP Nurse Practitioner; Visit Provider Nurse Practitioner
DX: S91.312A Laceration without foreign body, left foot, initial encounter (principal); X58.XXXA Exposure to other specified factors, initial encounter
CPT/HCPCS: 73650

== ENCOUNTER 2025-02-19 10:18 | Outpatient (CLI) | payer OTHER, SELFPAY ==
[2025-02-19 10:54] LABS: Hematocrit 40.8 % (37.0-47.0); Hemoglobin 14.2 g/dL (12.0-15.0); Immature Granulocyte Percent A 0.4 % (0-0.5); Lymphocytes Absolute Auto 3.59 K/mm3 (0.9-3.2); Mean Corpuscular HGB Conc 34.8 g/dl (32-36); Mean Corpuscular Hemoglobin 32.9 pg (26-34); Mean Corpuscular Volume 94.4 fl (80-100); Nucleated Red Blood Cells Absolute Auto 0.000 K/mm3 (0.0-0.012); Nucleated Red Blood Cells Perc 0.0 % (0.0-0.2); Platelet Count Result 503 k/mm3 (150-375); Red Blood Count 4.32 M/mm3 (4.2-5.4); White Blood Count 8.3 K/mm3 (4.5-10.0)
[2025-02-19 11:12] LABS: Anion Gap 4 mmol/L (4-12); Blood Urea Nitrogen 12 mg/dL (7-17); Calcium 9.5 mg/dL (8.4-10.2); Carbon Dioxide 30 mmol/L (22-30); Chloride 106 mmol/L (98-107); Estimated Glomerular Filt Rate > 60; Glucose 101 mg/dL (65-110); Potassium 4.0 mmol/L (3.4-5.0); Sodium 140 mmol/L (137-145)
== END 2025-02-19 10:19 | disposition home or self-care (01) ==
PROVIDERS: PCP Nurse Practitioner; Visit Provider Internal Medicine Hematology & Oncology
DX: D58.0 Hereditary spherocytosis (principal)
CPT/HCPCS: 36415; 80048; 85025